=== PATIENT | male | born 1960 | race African-American/Black ===

== ENCOUNTER 2018-11-19 09:23 | Emergency (ER) | payer OTHER ==
[2018-11-19 09:27] VITALS: RESP 18; TEMP 97.7
--- NOTE | 2018-11-19 09:36 | ED ---
Lower Extremity Injury HPI - General Chief Complaint: Extremity Injury, Lower Stated Complaint: Foot Injury Time Seen by Provider: 11/19/18 09:29 Source: patient, RN notes reviewed, old records reviewed Mode of arrival: wheelchair Limitations: no limitations - History of Present Illness Initial Comments: Patient is a 38-year-old male presents weren't found she will plan of left foot pain. Patient reports 2 days ago he was walking in the middle the night and stubbed his left great toe on the edge of a wood burning stove. He reports a laceration. He states that the toe started to swell. He reports that he has been able to ambulate with some pain. Patient reports no history of neuropathy. He states he has normal sensation to the distal toes. Patient reports pain with range of motion of the first toe. - Related Data Home Medications Medication Instructions Recorded Confirmed Hydrochlorothiazide 12.5 mg PO DAILY 11/19/18 11/19/18 Multivit-Min/FA/Lycopen/Lutein 1 tab PO DAILY 11/19/18 11/19/18 [Centrum Silver Men Tablet] Olmesartan Medoxomil [Benicar] 40 mg PO DAILY 11/19/18 11/19/18 Rosuvastatin Calcium [Crestor] 10 mg PO DAILY 11/19/18 11/19/18 Previous Rx's Medication Instructions Recorded Ibuprofen 600 mg PO TID #20 tablet 11/19/18 Allergies Allergy/AdvReac Type Severity Reaction Status Date / Time No Known Allergies Allergy Verified 11/19/18 09:56 Review of Systems ROS Statement: Those systems with pertinent positive or pertinent negative responses have been documented in the HPI. ROS Other: All systems not noted in ROS Statement are negative. Past Medical History Past Medical History: GI Bleed, Hyperlipidemia, Hypertension, Osteoarthritis (OA ) Additional Past Medical History / Comment(s): Rectal bleed 09/2014, pancreatitis , HERNIATED DISC IN NECK-will be having surgery soon, cervical pain. History of Any Multi-Drug Resistant Organisms: None Reported Past Surgical History: No Surgical Hx Reported Additional Past Surgical History / Comment(s): MAUREEN FUNDLAPLASTY, EGDs and colonoscopies with benign polypectomies, TOOTH EXTRACTIONS, Past Anesthesia/Blood Transfusion Reactions: No Reported Reaction Additional Past Anesthesia/Blood Transfusion Reaction / Comment(s): Pt has received blood without reaction. Past Psychological History: No Psychological Hx Reported Smoking Status: Current some day smoker Past Alcohol Use History: Daily Past Drug Use History: None Reported - Past Family History Mother Family Medical History: No Reported History Additional Family Medical History / Comment(s): Mother is healthy and is 78 yrs old. Father Family Medical History: Diabetes Mellitus, Hypertension Additional Family Medical History / Comment(s): Father at age 84 yrs. General Exam - General Exam Comments Initial Comments: Well-appearing 58-year-old male. Alert and oriented. No acute distress. Limitations: no limitations General appearance: alert, in no apparent distress Head exam: Present: atraumatic, normocephalic, normal inspection Eye exam: Present: normal appearance, PERRL, EOMI. Absent: scleral icterus, conjunctival injection, periorbital swelling ENT exam: Present: normal exam, mucous membranes moist Neck exam: Present: normal inspection. Absent: tenderness, meningismus, lymphadenopathy Respiratory exam: Present: normal lung sounds bilaterally. Absent: respiratory distress, wheezes, rales, rhonchi, stridor Left Knee exam: Present: normal inspection, full ROM Lower Leg exam: Present: normal inspection, full ROM Ankle exam: Present: normal inspection, full ROM Foot/Toe exam: Present: tenderness, swelling (over distal first metatarsal). Absent: normal inspection Neurovascular tendon exam: Present: no vascular compromise Gait: observed and normal Back exam: Present: normal inspection Neurological exam: Present: alert, oriented X3, CN II-XII intact Psychiatric exam: Present: normal affect, normal mood Course Vital Signs 11/19/18 09:24 Temperature 97.7 F Pulse Rate 94 Respiratory 18 Rate Blood Pressure 132/91 O2 Sat by Pulse 99 Oximetry Medical Decision Making - Medical Decision Making Patient is a 58-year-old male, who presents emergency department today with left great toe pain after he stubbed his toe 2 days ago. At this time he does have some swelling over the first metatarsal. Is normal sensation distally. Normal capillary refill and pulse. X-ray was completely negative for any acute process. Likely severe strain. Patient this time will be placed in a walking boot. Discussed following up with his primary care physician Jerzy Brumfield and icing the area. All questions answered and return parameters were discussed. - Radiology Data Radiology results: report reviewed No acute fracture dislocation of the left foot Disposition Clinical Impression: Sprain of left foot, Toe contusion Disposition: HOME SELF-CARE Condition: Good Instructions: Foot Sprain (ED) Additional Instructions: Patient is to rest, ice, and elevate the foot. Patient should take antibiotic medicine for pain. Follow-up with orthopedic and primary care physician. He can ambulate with walking boot. Prescriptions: Ibuprofen 600 mg PO TID #20 tablet Is patient prescribed a controlled substance at d/c from ED?: No Referrals: Jeffry Yang DO [Primary Care Provider] - 1-2 days Time of Disposition: 10:55
--- NOTE | 2018-11-19 09:58 | XR ---
EXAMINATION TYPE: XR foot complete LT DATE OF EXAM: 11/19/2018 CLINICAL HISTORY: Stubbing injury 2 days ago with pain. TECHNIQUE: Frontal, lateral, and oblique images of the left foot are obtained. COMPARISON: None FINDINGS: There is no acute fracture/dislocation evident in the left foot. There are acrolysis or os sific shortening of fourth distal phalanx. The Thompson's toe is present. There is gnoo-[id number] dif fuse subcutaneous edema with slightly more prominent soft tissue swelling near metatarsal head dorsal surface on lateral view. There is suspected bipartite medial sesamoid with well-corticated defect. M ild to moderate narrowing first metatarsophalangeal joint is present. IMPRESSION: There is no acute fracture or dislocation in the left foot.
[2018-11-19 11:08] VITALS: BP 127/90; PULSE 81
== END 2018-11-19 11:09 | disposition home or self-care (01) ==
LOC: EC 09:23
DX: S93.602A Unspecified sprain of left foot, initial encounter (principal); S90.112A Contusion of left great toe without damage to nail, initial encounter; E78.5 Hyperlipidemia, unspecified; I10 Essential (primary) hypertension; F17.200 Nicotine dependence, unspecified, uncomplicated; Z79.899 Other long term (current) drug therapy; W22.8XXA Striking against or struck by other objects, initial encounter; Y93.01 Activity, walking, marching and hiking
CPT/HCPCS: 99284

== ENCOUNTER 2018-12-24 18:35 | Emergency (ER) | payer OTHER ==
[2018-12-24 18:40] VITALS: BP 105/64; PULSE 87; RESP 16; TEMP 98
--- NOTE | 2018-12-24 19:19 | ED ---
Neck Injury/Pain HPI - General Chief Complaint: Neck Pain/Injury Stated Complaint: fall/neck pain Time Seen by Provider: 12/24/18 18:41 Source: patient, RN notes reviewed Mode of arrival: ambulatory Limitations: no limitations - History of Present Illness Initial Comments: 58-year-old male presents emergency Department chief complaint of left-sided neck pain. Patient states that he slipped on some ice 5 days ago. Patient denies any loss conscious. Patient states she has some soreness on the left side of his neck but states that has not improved. Patient states he had cervical fusion at [facility] 2 years ago. Patient denies any upper extremity weakness, paresthesias, radiating pain. Denies any chest pain or shortness of breath. Denies any upper back pain or lower back pain. - Related Data Home Medications Medication Instructions Recorded Confirmed Hydrochlorothiazide 12.5 mg PO DAILY 11/19/18 11/19/18 Multivit-Min/FA/Lycopen/Lutein 1 tab PO DAILY 11/19/18 11/19/18 [Centrum Silver Men Tablet] Olmesartan Medoxomil [Benicar] 40 mg PO DAILY 11/19/18 11/19/18 Rosuvastatin Calcium [Crestor] 10 mg PO DAILY 11/19/18 11/19/18 Previous Rx's Medication Instructions Recorded Ibuprofen 600 mg PO TID #20 tablet 11/19/18 Cyclobenzaprine [Flexeril] 10 mg PO TID PRN #15 tab 12/24/18 Ibuprofen [Motrin] 600 mg PO Q8HR PRN #30 tab 12/24/18 Allergies Allergy/AdvReac Type Severity Reaction Status Date / Time No Known Allergies Allergy Verified 12/24/18 18:40 Review of Systems ROS Statement: Those systems with pertinent positive or pertinent negative responses have been documented in the HPI. ROS Other: All systems not noted in ROS Statement are negative. Past Medical History Past Medical History: GI Bleed, Hyperlipidemia, Hypertension, Osteoarthritis (OA ) Additional Past Medical History / Comment(s): Rectal bleed 09/2014, pancreatitis , HERNIATED DISC IN NECK-will be having surgery soon, cervical pain. History of Any Multi-Drug Resistant Organisms: None Reported Past Surgical History: No Surgical Hx Reported Additional Past Surgical History / Comment(s): MAUREEN FUNDLAPLASTY, EGDs and colonoscopies with benign polypectomies, TOOTH EXTRACTIONS, Past Anesthesia/Blood Transfusion Reactions: No Reported Reaction Additional Past Anesthesia/Blood Transfusion Reaction / Comment(s): Pt has received blood without reaction. Past Psychological History: No Psychological Hx Reported Smoking Status: Current some day smoker Past Alcohol Use History: Daily Past Drug Use History: None Reported - Past Family History Mother Family Medical History: No Reported History Additional Family Medical History / Comment(s): Mother is healthy and is 78 yrs old. Father Family Medical History: Diabetes Mellitus, Hypertension Additional Family Medical History / Comment(s): Father at age 84 yrs. General Exam Limitations: no limitations General appearance: alert, in no apparent distress Head exam: Present: atraumatic, normocephalic, normal inspection Eye exam: Present: normal appearance, PERRL, EOMI. Absent: scleral icterus, conjunctival injection, periorbital swelling ENT exam: Present: normal exam, normal oropharynx, mucous membranes moist, TM's normal bilaterally, normal external ear exam Neck exam: Present: normal inspection, tenderness (Mild tenderness on the left paraspinals), full ROM. Absent: meningismus, lymphadenopathy Respiratory exam: Present: normal lung sounds bilaterally. Absent: respiratory distress, wheezes, rales, rhonchi, stridor Cardiovascular Exam: Present: regular rate, normal rhythm, normal heart sounds. Absent: systolic murmur, diastolic murmur, rubs, gallop, clicks Extremities exam: Present: normal inspection, full ROM, normal capillary refill , other (Upper extremity strength equal bilaterally, neurovascular intact). Absent: tenderness, pedal edema, joint swelling, calf tenderness Neurological exam: Present: alert, oriented X3, CN II-XII intact, reflexes normal, other ( finger to nose intact bilaterally without overshooting). Absent : motor sensory deficit Skin exam: Present: warm, dry, intact, normal color. Absent: rash Course Vital Signs 12/24/18 18:37 Temperature 98 F Pulse Rate 87 Respiratory 16 Rate Blood Pressure 105/64 O2 Sat by Pulse 97 Oximetry Medical Decision Making - Medical Decision Making 58-year-old male presented for fall neck pain. Patient has left-sided paraspinal tenderness. Patient is neurologically intact. X-ray shows stable fusion. I did discuss with the radiologist if there was a benefit according CT at this time. There is no acute fracture. Patient will follow-up with surgeon. Return parameters were discussed. Patient we discharged with anti- inflammatories and muscle relaxers. Disposition Clinical Impression: Strain of neck muscle Disposition: HOME SELF-CARE Condition: Stable Instructions (If sedation given, give patient instructions): Cervical Strain ( ED) Additional Instructions: Please return to the Emergency Department if symptoms worsen or any other concerns. Please follow-up with your surgeon as directed. Prescriptions: Cyclobenzaprine [Flexeril] 10 mg PO TID PRN #15 tab PRN Reason: Muscle Spasm Ibuprofen [Motrin] 600 mg PO Q8HR PRN #30 tab PRN Reason: Pain Is patient prescribed a controlled substance at d/c from ED?: No Referrals: Jeffry Yang DO [Primary Care Provider] - 1-2 days Time of Disposition: 19:32
--- NOTE | 2018-12-24 19:22 | XR ---
EXAMINATION TYPE: XR cervical spine comp DATE OF EXAM: 12/24/2018 COMPARISON: NONE HISTORY: Neck pain after fall TECHNIQUE: 5 views FINDINGS: There is a plate with screws fusing anteriorly the cervical spine from C4 to C7. There is a nterior spurring at C3-4. Posterior elements are intact. Atlantoaxial facet joint is intact. IMPRESSION: Multilevel fusion surgery. No acute bony abnormality.
[2018-12-24] MEDS ORDERED: KETOROLAC 60 MG/2 ML VIAL IM STA (19:30)
[2018-12-24] MEDS ORDERED: DIAZEPAM 5 MG/ML 2 ML INJ IM ONE (19:30)
== END 2018-12-24 19:44 | disposition home or self-care (01) ==
LOC: EC 18:35
DX: S16.1XXA Strain of muscle, fascia and tendon at neck level, initial encounter (principal); I10 Essential (primary) hypertension; E78.5 Hyperlipidemia, unspecified; F17.200 Nicotine dependence, unspecified, uncomplicated; Z79.899 Other long term (current) drug therapy; Z98.1 Arthrodesis status; W00.0XXA Fall on same level due to ice and snow, initial encounter
CPT/HCPCS: 72050; 99283; 96372 ×2; J3360; J1885

== ENCOUNTER → 2019-01-06 | Outpatient (CLI) | payer OTHER ==
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
== END | disposition home or self-care (01) ==
LOC: SLEEP 10:33
PROVIDERS: ATTEND Internal Medicine Critical Care Medicine
DX: G47.63 Sleep related bruxism (principal); R06.83 Snoring; R53.83 Other fatigue; R40.0 Somnolence; E78.5 Hyperlipidemia, unspecified; I10 Essential (primary) hypertension; F10.20 Alcohol dependence, uncomplicated; M50.30 Other cervical disc degeneration, unspecified cervical region; M19.90 Unspecified osteoarthritis, unspecified site; F17.200 Nicotine dependence, unspecified, uncomplicated; Z87.19 Personal history of other diseases of the digestive system; Z79.1 Long term (current) use of non-steroidal anti-inflammatories (NSAID); Z98.890 Other specified postprocedural states
CPT/HCPCS: 99211

== ENCOUNTER → 2019-04-07 | Outpatient (CLI) | payer OTHER ==
--- NOTE | 2019-04-07 15:04 | SFUN ---
SLEEP CENTER FOLLOW UP NOTE Teo is 58, diagnosed having severe obstructive sleep apnea with AHI of 33, and currently he is on is on CPAP pressure of 11. He is trying to become more compliant with CPAP. He is using the SoClean to clean his CPAP unit. He has already seen the benefit of the treatment, as reported sleep quality is improved and the patient is much more alert and awake and responsive during the day. Based on the compliance data, the patient has been averaging 4.8 hours of CPAP use per night. His CPAP use in general it is 100%. He is averaging more than 4 hours only 18 out of the past 30 days. His leak is 63/L per minute, and the patient's AHI is down to 2.3 while on treatment. He is using a Simplus full-face mask. Note that the patient has grinding of the teeth, and he is interested in alternative masks that can go around his nose and at same time he can wear his bite guard. I note that his blood pressure is little bit elevated on today's evaluation. He is known to have hypertension. REVIEW OF SYSTEMS: A 14-point review of system was done. Positive for grinding and he is seeking an alternative masks that covers his nose and he makes him use his mouth guard. In general, he is doing better. His sleep quality is improved. No hypersomnia or sleepiness. No angina, no palpitations. No chest pain. No numbness or tingling. No altered mentation. No hypersomnia. His current vitals, BP is 188/92, pulse 54, respirations 16, weight is 203. temperature 98.2, saturation is 98% on room air. [place] score is 6. GENERAL APPEARANCE: Calm, comfortable. HEAD: Atraumatic, normocephalic. NECK: Supple. No JVD. No goiter or neck mass. Mallampati class IV. LUNGS: Clear to auscultation. HEART: Sounds regular rate and rhythm. Normal S1, S2. No S3. No murmurs. ABDOMEN: Soft, nontender. No organomegaly. EXTREMITIES: No edema. No cyanosis or clubbing. NEUROLOGIC: Alert and oriented x3. No focal neurological deficits. PSYCHIATRIC: Negative for anxiety or depression. IMPRESSION: 1. Severe obstructive sleep apnea, apnea-hypopnea index of 33. Already undergoing successful CPAP therapy. 2. Hypersomnia, improved. 3. Loud snoring, recovered. 4. Grinding of the teeth, wearing a bite guard. 5. Eating disorder. 6. Hypertension. 7. Alcoholism. PLAN: 1. Will switch this patient to a Dream wear under the nose mask, medium size. 2. Will allow the patient to use his mouth guard. 3. I asked the patient to use more of a CPAP,. trying to improve his compliance further. 4. Treatment is successful. 5. Noted the blood pressure to be elevated and ask the patient to contact his primary care physician for blood pressure management and control. In general, his treatment has been successful. MMODL / IJN: [id number] /
== END | disposition home or self-care (01) ==
LOC: SLEEP 13:12
PROVIDERS: ATTEND Internal Medicine Critical Care Medicine
DX: G47.33 Obstructive sleep apnea (adult) (pediatric) (principal); F45.8 Other somatoform disorders; F50.9 Eating disorder, unspecified; I10 Essential (primary) hypertension; F10.20 Alcohol dependence, uncomplicated; Z99.89 Dependence on other enabling machines and devices

== ENCOUNTER 2019-09-27 13:08 | Inpatient (IN) | payer MEDICARE, OTHER ==
[2019-09-27] MEDS ORDERED: HYDROmorphone 1 MG/ML 1 ML SYRINGE IVP STA (13:34)
[2019-09-27] MEDS ORDERED: ONDANSETRON 4 MG/2 ML VIAL IVP STA (13:34)
[2019-09-27] MEDS ORDERED: SODIUM CHLORIDE 0.9% 1,000 ML IV ONE (13:35)
--- NOTE | 2019-09-27 13:40 | ED ---
General Adult HPI - General Chief complaint: Abdominal Pain Stated complaint: Abd pain Time Seen by Provider: 09/27/19 13:29 Source: patient Mode of arrival: ambulatory Limitations: no limitations - History of Present Illness Initial comments: Patient presents to the ED complaining of having epigastric abdominal pain radiating to his back for the past 4 days. Patient states that his pain has been increasing. Patient also states that he has felt nauseated, and he states that he vomited 2 days ago. Patient has a history of alcohol abuse, but he sta lashae that he has not had a drink in the past 2 days. Patient denies trauma or injury, fever or chills, headache, chest pain, dyspnea, dizziness, lower abdominal pain, bloody or melanotic stool, hematemesis, diarrhea or constipation, dysuria or urinary symptoms, or any other symptoms or complaints. - Related Data Home Medications Medication Instructions Recorded Confirmed Hydrochlorothiazide 12.5 mg PO DAILY 11/19/18 11/19/18 Multivit-Min/FA/Lycopen/Lutein 1 tab PO DAILY 11/19/18 11/19/18 [Centrum Silver Men Tablet] Olmesartan Medoxomil [Benicar] 40 mg PO DAILY 11/19/18 11/19/18 Rosuvastatin Calcium [Crestor] 10 mg PO DAILY 11/19/18 11/19/18 Previous Rx's Medication Instructions Recorded Ibuprofen 600 mg PO TID #20 tablet 11/19/18 Cyclobenzaprine [Flexeril] 10 mg PO TID PRN #15 tab 12/24/18 Ibuprofen [Motrin] 600 mg PO Q8HR PRN #30 tab 12/24/18 Allergies Allergy/AdvReac Type Severity Reaction Status Date / Time No Known Allergies Allergy Verified 09/27/19 13:24 Review of Systems ROS Statement: Those systems with pertinent positive or pertinent negative responses have been documented in the HPI. ROS Other: All systems not noted in ROS Statement are negative. Past Medical History Past Medical History: GERD/Reflux, GI Bleed, Hyperlipidemia, Hypertension, Osteoarthritis (OA) Additional Past Medical History / Comment(s): alcholism , rectal bleed 09/2014, pancreatitis, Cervical disk disease on the neck, gringing History of Any Multi-Drug Resistant Organisms: None Reported Additional Past Surgical History / Comment(s): MAUREEN FUNDLAPLASTY, EGDs and colonoscopies with benign polypectomies, TOOTH EXTRACTIONS, Past Anesthesia/Blood Transfusion Reactions: No Reported Reaction Additional Past Anesthesia/Blood Transfusion Reaction / Comment(s): Pt has received blood without reaction. Past Psychological History: No Psychological Hx Reported Smoking Status: Current some day smoker Past Alcohol Use History: Daily Past Drug Use History: None Reported - Past Family History Mother Family Medical History: No Reported History Additional Family Medical History / Comment(s): Mother is healthy and is 78 yrs old. Father Family Medical History: Diabetes Mellitus, Hypertension Additional Family Medical History / Comment(s): Father at age 84 yrs. General Exam Limitations: no limitations General appearance: alert, in no apparent distress Head exam: Present: atraumatic, normocephalic Eye exam: Present: normal appearance, EOMI. Absent: scleral icterus ENT exam: Present: mucous membranes moist Respiratory exam: Present: normal lung sounds bilaterally. Absent: respiratory distress, wheezes, rales, rhonchi Cardiovascular Exam: Present: regular rate, normal rhythm, normal heart sounds, other (Normal radial pulses bilaterally) GI/Abdominal exam: Present: soft, normal bowel sounds, other (Moderate epigastric tenderness). Absent: distended, guarding, rebound Back exam: Absent: tenderness, CVA tenderness (R), CVA tenderness (L) Neurological exam: Present: alert, oriented X3 Psychiatric exam: Present: normal affect, normal mood Skin exam: Present: warm, dry, intact Course Vital Signs 09/27/19 13:21 Temperature 97.4 F L Pulse Rate 87 Respiratory 16 Rate Blood Pressure 126/84 O2 Sat by Pulse 99 Oximetry - Reevaluation(s) Reevaluation #1: 09/27/19 14:25 Case, H&P, test results and ED management thus far were discussed with Dr. Benavidez. He accepts hospital floor admission. He has no further recommendations at this time. Reevaluation #2: 09/27/19 14:37 Patient states that his pain is improved with ED treatment. Patient denies development of any new symptoms while in the ED. Patient is aware of his test results, and he agrees with hospital admission at this time. Medical Decision Making - Medical Decision Making Patient's pancreatic enzymes are elevated. Patient has a normal white blood cell count and he is afebrile. I suspect that the patient's symptoms are likely secondary to alcohol-induced acute pancreatitis. Will admit the patient to the hospital under care of Dr. Benavidez. - Lab Data Result diagrams: 09/27/19 13:45 09/27/19 13:45 Lab Results 09/27/19 09/27/19 Range/Units 13:45 13:45 WBC 5.8 (3.8-10.6) k/uL RBC 4.03 L (4.30-5.90) m/uL Hgb 13.8 (13.0-17.5) gm/dL Hct 42.2 (39.0-53.0) % MCV 104.6 H (80.0-100.0) fL MCH 34.3 (25.0-35.0) pg MCHC 32.8 (31.0-37.0) g/dL RDW 14.0 (11.5-15.5) % Plt Count 214 (150-450) k/uL Neutrophils % 73 % Lymphocytes % 17 % Monocytes % 4 % Eosinophils % 3 % Basophils % 0 % Neutrophils # 4.3 (1.3-7.7) k/uL Lymphocytes # 1.0 (1.0-4.8) k/uL Monocytes # 0.3 (0-1.0) k/uL Eosinophils # 0.2 (0-0.7) k/uL Basophils # 0.0 (0-0.2) k/uL Macrocytosis Moderate Sodium 139 (137-145) mmol/L Potassium 3.9 (3.5-5.1) mmol/L Chloride 105 (98-107) mmol/L Carbon Dioxide 26 (22-30) mmol/L Anion Gap 8 mmol/L BUN 13 (9-20) mg/dL Creatinine 1.14 (0.66-1.25) mg/dL Est GFR (CKD-EPI)AfAm 81 (>60 ml/min/1.73 sqM) Est GFR (CKD-EPI)NonAf 70 (>60 ml/min/1.73 sqM) Glucose 115 H (74-99) mg/dL Calcium 10.1 (8.4-10.2) mg/dL Total Bilirubin 2.2 H (0.2-1.3) mg/dL AST 175 H (17-59) U/L ALT 75 H (21-72) U/L Alkaline Phosphatase 201 H (38-126) U/L Total Protein 7.9 (6.3-8.2) g/dL Albumin 4.4 (3.5-5.0) g/dL Amylase 140 H (30-110) U/L Lipase 874 H (23-300) U/L Serum Alcohol <10 mg/dL Disposition Clinical Impression: Abdominal pain, Pancreatitis Disposition: ADMITTED IP TO THIS [facility] Condition: Stable Is patient prescribed a controlled substance at d/c from ED?: No Referrals: Jeffry Yang DO [Primary Care Provider] - 1-2 days Time of Disposition: 14:25 Decision Date: 09/27/19 Decision Time: 14:21
[2019-09-27 13:52] LABS: Basophils % (A) 0 %; Eosinophils # (A) 0.2 k/uL (0-0.7); Eosinophils % (A) 3 %; HCT 42.2 % (39.0-53.0); HGB 13.8 gm/dL (13.0-17.5); Lymphocytes % (A) 17 %; MCH 34.3 pg (25.0-35.0); MCHC 32.8 g/dL (31.0-37.0); MCV 104.6 fL (80.0-100.0); Macrocytosis Moderate; Mean Platelet Volume 9.4; Monocytes # (A) 0.3 k/uL (0-1.0); Monocytes % (A) 4 %; Neutrophils # (A) 4.3 k/uL (1.3-7.7); Neutrophils % (A) 73 %; Platelet Count 214 k/uL (150-450); RBC 4.03 m/uL (4.30-5.90); WBC 5.8 k/uL (3.8-10.6)
[2019-09-27 14:06] LABS: ALT 75 U/L (21-72); AST 175 U/L (17-59); African American GFR (CKD) 81 (>60 ml/min/1.73 sqM); Albumin 4.4 g/dL (3.5-5.0); Alcohol <10 mg/dL; Alkaline Phosphatase 201 U/L (38-126); Amylase 140 U/L (30-110); Anion Gap 8 mmol/L; Blood Urea Nitrogen 13 mg/dL (9-20); Calcium 10.1 mg/dL (8.4-10.2); Carbon Dioxide 26 mmol/L (22-30); Chloride 105 mmol/L (98-107); Glucose 115 mg/dL (74-99); Potassium 3.9 mmol/L (3.5-5.1); Sodium 139 mmol/L (137-145); Total Bilirubin 2.2 mg/dL (0.2-1.3); Total Protein 7.9 g/dL (6.3-8.2)
[2019-09-27] MEDS ORDERED: NALOXONE 0.4 MG/ML 1 ML VIAL IV PRN (14:26)
[2019-09-27] MEDS ORDERED: MORPHINE SULFATE 4 MG/ML SYRINGE IV PRN (14:26)
[2019-09-27] MEDS: SODIUM CHLORIDE 0.9% 1,000 ML IV SCH (14:50)
[2019-09-27 16:17] VITALS: BMI 26.4
[2019-09-27] MEDS ORDERED: THIAMINE 100 MG/ML 2 ML VIAL IM STA (17:25)
[2019-09-27] MEDS ORDERED: LORazepam 2 MG/ML INJ IV PRN ×3 (17:25)
--- NOTE | 2019-09-27 17:58 | HP ---
HISTORY AND PHYSICAL DATE OF SERVICE: 09/27/2019 CHIEF COMPLAINT: Abdominal pain. HISTORY OF PRESENT ILLNESS: This 59-year-old gentleman with a past medical history of multiple medical problems including history of GERD, hypertension, hyperlipidemia, history of DJD, alcoholism, being followed by Dr. Jeffry Yang in the outpatient setting, is complaining of abdominal pain. The pain was present for the last 4 days, increased in intensity felt in the front and radiating to the back. The patient had previous history of pancreatitis related to alcohol also. There is no history of fever, rigors or chills. No history of headache, loss of consciousness or seizures. PAST MEDICAL HISTORY: History of GERD, history of gastrointestinal bleed, hypertension, hyperlipidemia, history of DJD, history of alcoholism, history of rectal bleed, history of pancreatitis, cervical degenerative joint disease. MEDICATIONS: Hydrochlorothiazide 10.5 mg daily. ALLERGIES: None. FAMILY HISTORY: History of diabetes and hypertension. SOCIAL HISTORY: History of smoking. History of alcohol. REVIEW OF SYSTEMS: ENT: No diminished vision. No diminished hearing. Cardiovascular: No angina or palpitations. Respiration no cough or hemoptysis. GI: As mentioned above. no dysuria. Nervous system: No numbness or weakness. Allergy/Immunology: No asthma or hayfever. MUSCULOSKELETAL as mentioned earlier. HEMATOLOGY/ONCOLOGY: No history of anemia. ENDOCRINE: No history of diabetes or hypothyroidism. CONSTITUTIONAL: As mentioned earlier. Dermatology: Negative. Rheumatology: Negative. Psychiatry: As mentioned earlier. PHYSICAL EXAMINATION: Alert and oriented times three. Pulse is 55. Blood pressure 130/70, respiration 18, temperature 97.6, pulse ox 98% on room air. HEENT: Conjunctivae normal. NECK: No JVD. CARDIOVASCULAR: S1, S2 muffled. RESPIRATORY: Breath sounds diminished in the bases. Scattered rhonchi and crackles. ABDOMEN: Soft. Mild diffuse tenderness in the epigastrium. No guarding. No rigidity. No mass palpable. LEGS: No edema. No swelling. NERVOUS SYSTEM: Higher functions as mentioned earlier. Moves all 4 limbs. No focal motor or sensory deficits. LYMPHATICS: No lymph nodes palpable in the neck, axillae or groin. SKIN: No ulcer. No rashes. No bleeding. JOINTS: No active deforming arthropathy. LABS: At this time shows WBC 5.2, hemoglobin 13.8. Sodium 130, potassium 3.9. Glucose 115, total bilirubin is 2.2, AST is 175, ALT is 175, and amylase is 140 and lipase is 874. ASSESSMENT: 1. Acute pancreatitis with acute on chronic pancreatitis with abdominal pain. 2. Increased bilirubin with AST/ALT possibly hepatitis, alcohol related. 3. History of gastroesophageal reflux disease. 4. History of gastrointestinal bleed. 5. Hypertension. 6. Hyperlipidemia. 7. History of degenerative joint disease. 8. History of pancreatitis. 9. Cervical degenerative joint disease. 10.History of Cal fundoplasty. 11.Continued ongoing nicotine dependence. 12.FULL CODE. RECOMMENDATIONS AND DISCUSSION: In this 59-year-old gentleman who presented with multiple complex medical issues, we will monitor the patient closely, continue the current medications, symptomatic treatment of the pain. I would also recommend repeat labs in the morning. Symptomatic treatment. If the patient's pain improves, the patient may be fed. Otherwise see orders for details. Prognosis guarded. Further recommendations to follow. A copy of dictation being forwarded to Dr. Jeffry Yang who is the primary physician. MMYASMANIL / IJN: [id number] /
[2019-09-27] MEDS: HYDROmorphone 0.5 MG/0.5 ML SYRINGE IVP PRN (20:00)
[2019-09-27] MEDS: THIAMINE 100 MG TAB PO SCH (20:00)
[2019-09-27] MEDS: HEPARIN SODIUM,PORCINE 5,000 UNIT/ML 1 ML VIAL SQ SCH (20:01)
[2019-09-27] MEDS: PANTOPRAZOLE 40 MG/10 ML VIAL IVP SCH ×2 (20:01→20:49)
[2019-09-27] MEDS: NICOTINE 14MG/24HR PATCH TRANSDERM SCH (20:10)
[2019-09-28] MEDS: HYDROmorphone 0.5 MG/0.5 ML SYRINGE IVP PRN ×5 (00:16→20:27)
[2019-09-28] MEDS: SODIUM CHLORIDE 0.9% 1,000 ML IV SCH ×3 (00:18→16:34)
[2019-09-28] MEDS: ONDANSETRON 4 MG/2 ML VIAL IVP PRN ×2 (00:19→20:33)
[2019-09-28] MEDS: NICOTINE 14MG/24HR PATCH TRANSDERM SCH (07:30)
[2019-09-28] MEDS: THIAMINE 100 MG TAB PO SCH ×2 (07:30→16:30)
[2019-09-28] MEDS: HEPARIN SODIUM,PORCINE 5,000 UNIT/ML 1 ML VIAL SQ SCH ×2 (07:34→20:28)
[2019-09-28] MEDS: PANTOPRAZOLE 40 MG/10 ML VIAL IVP SCH ×2 (07:35→20:27)
[2019-09-28] MEDS: HYDROmorphone 1 MG/ML 1 ML SYRINGE IVP PRN (08:04)
[2019-09-28 11:17] LABS: Basophils % (A) 0 %; Eosinophils # (A) 0.2 k/uL (0-0.7); Eosinophils % (A) 4 %; HCT 39.3 % (39.0-53.0); HGB 12.3 gm/dL (13.0-17.5); Hypochromasia Slight; Lymphocytes # (A) 1.2 k/uL (1.0-4.8); Lymphocytes % (A) 25 %; MCH 33.6 pg (25.0-35.0); MCHC 31.2 g/dL (31.0-37.0); MCV 107.5 fL (80.0-100.0); Macrocytosis Moderate; Monocytes # (A) 0.3 k/uL (0-1.0); Monocytes % (A) 6 %; Neutrophils # (A) 3.1 k/uL (1.3-7.7); Neutrophils % (A) 62 %; Platelet Count 192 k/uL (150-450); RBC 3.65 m/uL (4.30-5.90); RDW 14.2 % (11.5-15.5)
[2019-09-28] MEDS: MULTIVITAMINS, THERA 1 EACH TAB PO SCH (12:15)
[2019-09-28] MEDS: FOLIC ACID 1 MG TAB PO SCH (12:15)
[2019-09-28 12:32] LABS: ALT 75 U/L (21-72); AST 86 U/L (17-59); African American GFR (CKD) >90 (>60 ml/min/1.73 sqM); Albumin 3.4 g/dL (3.5-5.0); Alkaline Phosphatase 157 U/L (38-126); Amylase 86 U/L (30-110); Anion Gap 8 mmol/L; Blood Urea Nitrogen 11 mg/dL (9-20); Calcium 8.7 mg/dL (8.4-10.2); Carbon Dioxide 21 mmol/L (22-30); Chloride 109 mmol/L (98-107); Glucose 62 mg/dL (74-99); Potassium 4.3 mmol/L (3.5-5.1); Sodium 138 mmol/L (137-145); Total Protein 6.3 g/dL (6.3-8.2)
--- NOTE | 2019-09-28 13:15 | P.PN ---
Subjective Progress Note Date: 09/28/19 This is a 59-year-old gentleman admitted with abdominal pain ,acute on chronic pancreatitis, alcohol abuse, nicotine dependence and multiple other medical issues. Patient reports he drinks about 1-1/2 pints per day.NPO, continues to have significant mid epigastric abdominal pain. Continues on IV fluid hy dration. Afebrile, normal WBC. She bili normalized, LFTs improving, lipase down to 496. Objective - Vital Signs Vital signs: Vital Signs Temp 98.1 F 09/28/19 12:02 Pulse 48 L 09/28/19 12:02 Resp 17 09/28/19 12:02 BP 171/88 09/28/19 12:02 Pulse Ox 100 09/28/19 12:02 Intake & Output 09/27/19 09/28/19 09/28/19 18:59 06:59 18:59 Intake Total 2029 Balance 2029 Weight 86.183 kg Intake: Intake, IV Titration 1440 Amount Sodium Chloride 0.9% 1, 1440 000 ml @ 120 mls/hr IV . Q8H20M [facility] Rx#:[id number] Oral 590 Other: Voiding Method Toilet Toilet # Voids 1 - Exam PHYSICAL EXAM: VITAL SIGNS: As above GENERAL: Sitting up in bed, no acute distress HEENT: Conjunctivae normal. eyes normal. Oral mucosa dry. NECK: No JVD. No thyroid enlargement. CARDIOVASCULAR: S1, S2 regular. No murmur RESPIRATION: Breath sounds diminished in the bases. No rhonchi or crackles. No bronchial breathing. ABDOMEN: Soft, mildly distended, diffuse mid epigastric tenderness. No guarding. no masses palpable. Bowel sounds heard. LEGS: No edema. no swelling. PSYCHIATRY: Alert and oriented X3, mood and affect normal. NERVOUS SYSTEM: Cranial N 2-12 grossly normal. Moves all 4 limbs. No focal deficits. Strength and sensation grossly intact.. Skin: no rash, normal skin turgor. - Labs CBC & Chem 7: 09/28/19 07:35 09/28/19 07:35 Labs: Abnormal Lab Results - Last 24 Hours (Table) 09/27/19 09/27/19 09/28/19 Range/Units 13:45 13:45 07:35 RBC 4.03 L (4.30-5.90) m/uL Hgb (13.0-17.5) gm/dL MCV 104.6 H (80.0-100.0) fL Chloride 109 H (98-107) mmol/L Carbon Dioxide 21 L (22-30) mmol/L Glucose 115 H 62 L (74-99) mg/dL Total Bilirubin 2.2 H (0.2-1.3) mg/dL AST 175 H 86 H (17-59) U/L ALT 75 H 75 H (21-72) U/L Alkaline Phosphatase 201 H 157 H (38-126) U/L Albumin 3.4 L (3.5-5.0) g/dL Amylase 140 H (30-110) U/L Lipase 874 H 496 H (23-300) U/L 09/28/19 Range/Units 07:35 RBC 3.65 L (4.30-5.90) m/uL Hgb 12.3 L (13.0-17.5) gm/dL MCV 107.5 H (80.0-100.0) fL Chloride (98-107) mmol/L Carbon Dioxide (22-30) mmol/L Glucose (74-99) mg/dL Total Bilirubin (0.2-1.3) mg/dL AST (17-59) U/L ALT (21-72) U/L Alkaline Phosphatase (38-126) U/L Albumin (3.5-5.0) g/dL Amylase (30-110) U/L Lipase (23-300) U/L Assessment and Plan Assessment: Acute on chronic pancreatitis -Increased bilirubin with LFTs. Possibly alcoholic hepatitis. -Alcohol abuse -Nicotine dependence -History of GI bleed -Hypertension -Hyperlipidemia -Cervical degenerative joint disease -History of Cal Fundoplasty. Plan: Continue on current medication regime ,monitoring and symptomatic treatment. Continues to complain of significant abdominal pain, surgery consulted. Keep NPO. Maintain gentle IV fluid hydration. Close monitoring of LFTs, lipase with repeat labs ordered for a.m. Discussed smoking and alcohol cessation, including community resources, AA. Plan of care discussed with both patient and son at bedside. The impression and plan of care has been dictated as directed. : I performed a history and examination of this patient, discussed the same with the dictator. I agree with the dictator's note ,documented as a scribe. Any additional findings or plans will be noted.
--- NOTE | 2019-09-28 13:18 | P.GSCN ---
History of Present Illness Consult date: 09/28/19 Reason for Consult: abdominal pain, pancreatitis Requesting physician: Jojo Chavez History of present illness: CHIEF COMPLAINT: Abdominal pain HISTORY OF PRESENT ILLNESS: 59-year-old male who was admitted to the hospital secondary to pancreatitis. Patient's history of alcohol abuse. Patient states he has not consumed alcohol in the last few days but prior to that he was drinking around a pint a day. Patient states his abdominal pain has improved at the time of examination. He denies nausea or vomiting. Requesting to be started on diet. PAST MEDICAL HISTORY: See list. PAST SURGICAL HISTORY: See list. SOCIAL HISTORY: History of alcohol abuse REVIEW OF SYSTEMS: CONSTITUTIONAL: Denies fever or chills. HEENT: Denies blurred vision, vision changes, or eye pain. Denies hemoptysis CARDIOVASCULAR: Denies chest pain or pressure. RESPIRATORY: No shortness of breath. GASTROINTESTINAL: Refer to HPI for pertinent findings HEMATOLOGIC: Denies bleeding disorders. GENITOURINARY: Denies any blood in urine. SKIN: Denies pruitis. Denies rash. PHYSICAL EXAM: VITAL SIGNS: Reviewed. GENERAL: Well-developed in no acute distress. HEENT: No sclera icterus. Extraocular movements grossly intact. Moist buccal mucosa. Head is atraumatic, normocephalic. ABDOMEN: Soft. Nondistended. Minimally tender. NEUROLOGIC: Alert and oriented. Cranial nerves II through XII grossly intact. LABORATORY DATA: Laboratory data upon admission reveals bilirubin 2.2. AST 175. ALT 75. Alkaline phosphatase 201. Amylase 140. Lipase 874. Repeat laboratory data this morning reveals bilirubin 1.0. AST 86. ALT 75. Alkaline phosphatase 157. Amylase 86. Lipase 496. ASSESSMENT: 1. Abdominal pain 2. Acute pancreatitis, suspect secondary to alcohol use, cannot exclude biliary etiology PLAN: 1. Clear liquid diet 2. Monitor labs 3. Obtain ultrasound abdomen to rule out biliary etiology Nurse practitioner note has been reviewed by physician. Signing provider agrees with the documented findings, assessment, and plan of care. Past Medical History Past Medical History: GERD/Reflux, GI Bleed, Hyperlipidemia, Hypertension, Osteoarthritis (OA) Additional Past Medical History / Comment(s): alcholism , rectal bleed 09/2014, pancreatitis, Cervical disk disease on the neck, gringing History of Any Multi-Drug Resistant Organisms: None Reported Past Surgical History: No Surgical Hx Reported Additional Past Surgical History / Comment(s): MAUREEN FUNDLAPLASTY, EGDs and colonoscopies with benign polypectomies, TOOTH EXTRACTIONS, Past Anesthesia/Blood Transfusion Reactions: No Reported Reaction Additional Past Anesthesia/Blood Transfusion Reaction / Comm: Pt has received blood without reaction. Past Psychological History: No Psychological Hx Reported Additional Psychological History / Comment(s): Pt has a girlfriend of 20 yrs who lives with him. He is independent. He uses no assistive device. He drives. Smoking Status: Current some day smoker Past Alcohol Use History: Daily Additional Past Alcohol Use History / Comment(s): STATES SMOKES CIGARS OCCASIONALLY starting in 2009 Past Drug Use History: None Reported - Past Family History Mother Family Medical History: No Reported History Additional Family Medical History / Comment(s): Mother is healthy and is 78 yrs old. Father Family Medical History: Diabetes Mellitus, Hypertension Additional Family Medical History / Comment(s): Father at age 84 yrs. Medications and Allergies Home Medications Medication Instructions Recorded Confirmed Type Hydrochlorothiazide 12.5 mg PO DAILY 11/19/18 09/27/19 History Allergies Allergy/AdvReac Type Severity Reaction Status Date / Time No Known Allergies Allergy Verified 09/27/19 14:54 Surgical - Exam Vital Signs Temp Pulse Resp BP Pulse Ox 97.4 F L 87 16 126/84 99 09/27/19 13:21 09/27/19 13:21 09/27/19 13:21 09/27/19 13:21 09/27/19 13:21 Results - Labs 09/28/19 07:35 09/28/19 07:35 Abnormal Lab Results - Last 24 Hours (Table) 09/27/19 09/27/19 09/28/19 Range/Units 13:45 13:45 07:35 RBC 4.03 L (4.30-5.90) m/uL Hgb (13.0-17.5) gm/dL MCV 104.6 H (80.0-100.0) fL Chloride 109 H (98-107) mmol/L Carbon Dioxide 21 L (22-30) mmol/L Glucose 115 H 62 L (74-99) mg/dL Total Bilirubin 2.2 H (0.2-1.3) mg/dL AST 175 H 86 H (17-59) U/L ALT 75 H 75 H (21-72) U/L Alkaline Phosphatase 201 H 157 H (38-126) U/L Albumin 3.4 L (3.5-5.0) g/dL Amylase 140 H (30-110) U/L Lipase 874 H 496 H (23-300) U/L 09/28/19 Range/Units 07:35 RBC 3.65 L (4.30-5.90) m/uL Hgb 12.3 L (13.0-17.5) gm/dL MCV 107.5 H (80.0-100.0) fL Chloride (98-107) mmol/L Carbon Dioxide (22-30) mmol/L Glucose (74-99) mg/dL Total Bilirubin (0.2-1.3) mg/dL AST (17-59) U/L ALT (21-72) U/L Alkaline Phosphatase (38-126) U/L Albumin (3.5-5.0) g/dL Amylase (30-110) U/L Lipase (23-300) U/L Diabetes panel 09/27/19 09/28/19 Range/Units 13:45 07:35 Sodium 139 138 (137-145) mmol/L Potassium 3.9 4.3 (3.5-5.1) mmol/L Chloride 105 109 H (98-107) mmol/L Carbon Dioxide 26 21 L (22-30) mmol/L BUN 13 11 (9-20) mg/dL Creatinine 1.14 1.00 (0.66-1.25) mg/dL Glucose 115 H 62 L (74-99) mg/dL Calcium 10.1 8.7 (8.4-10.2) mg/dL AST 175 H 86 H (17-59) U/L ALT 75 H 75 H (21-72) U/L Alkaline Phosphatase 201 H 157 H (38-126) U/L Total Protein 7.9 6.3 (6.3-8.2) g/dL Albumin 4.4 3.4 L (3.5-5.0) g/dL Calcium panel 09/27/19 09/28/19 Range/Units 13:45 07:35 Calcium 10.1 8.7 (8.4-10.2) mg/dL Albumin 4.4 3.4 L (3.5-5.0) g/dL Pituitary panel 09/27/19 09/28/19 Range/Units 13:45 07:35 Sodium 139 138 (137-145) mmol/L Potassium 3.9 4.3 (3.5-5.1) mmol/L Chloride 105 109 H (98-107) mmol/L Carbon Dioxide 26 21 L (22-30) mmol/L BUN 13 11 (9-20) mg/dL Creatinine 1.14 1.00 (0.66-1.25) mg/dL Glucose 115 H 62 L (74-99) mg/dL Calcium 10.1 8.7 (8.4-10.2) mg/dL Adrenal panel 09/27/19 09/28/19 Range/Units 13:45 07:35 Sodium 139 138 (137-145) mmol/L Potassium 3.9 4.3 (3.5-5.1) mmol/L Chloride 105 109 H (98-107) mmol/L Carbon Dioxide 26 21 L (22-30) mmol/L BUN 13 11 (9-20) mg/dL Creatinine 1.14 1.00 (0.66-1.25) mg/dL Glucose 115 H 62 L (74-99) mg/dL Calcium 10.1 8.7 (8.4-10.2) mg/dL Total Bilirubin 2.2 H 1.0 (0.2-1.3) mg/dL AST 175 H 86 H (17-59) U/L ALT 75 H 75 H (21-72) U/L Alkaline Phosphatase 201 H 157 H (38-126) U/L Total Protein 7.9 6.3 (6.3-8.2) g/dL Albumin 4.4 3.4 L (3.5-5.0) g/dL
--- NOTE | 2019-09-28 14:07 | US ---
EXAMINATION TYPE: US abdomen complete DATE OF EXAM: 09/28/2019 COMPARISON: US 2014 CLINICAL HISTORY: Pancreatitis. Abdomen pain, N/V, exam done portable. EXAM MEASUREMENTS: Liver Length: 16.2 cm Gallbladder Wall: 0.2 cm CBD: 0.8 cm Spleen: n/a Right Kidney: 11.6 x 5.4 x 5.3 cm Left Kidney: 11.9 x 6.0 x 5.0 cm Pancreas: visualized portions wnl, limited by overlying midline bowel gas. No peripancreatic fluid c ollections. Liver: Very mildly coarse in echotexture with very slight heterogeneity. This does limit evaluation for underlying hepatic masses. No discrete hepatic mass seen. Gallbladder: Nearly hydropic, low level echoes within dependant portion, possible sludge, wall measu res wnl Evidence for sonographic Glover's sign: no CBD: dilated Spleen: not visualized due to overlying bowel gas Right Kidney: wnl Left Kidney: wnl Upper IVC: wnl Abd Aorta: visualized portions wnl, limited by overlying midline bowel gas The liver is slightly heterogenous. The intrahepatic portion of the IVC and proximal abdominal aorta are within normal limits. There is no evidence of cholelithiasis. Common bile duct is dilated. Th e visualized portions of the pancreas are homogenous. The spleen is unremarkable. Kidneys are symme tric and free of hydronephrosis. No renal lesions are seen. IMPRESSION: 1. Nearly hydropic gallbladder with dilated common bile duct and gallbladder sludge. HIDA scan is rec ommended to ensure no acute cholecystitis. 2. There is slight heterogeneity the hepatic parenchyma, most commonly related to early hepatic steat osis. 3. Nonvisualization of the spleen, only partial visualization of the pancreas, and limited evaluation of the abdominal aorta also secondary to obscuration by bowel gas. No peripancreatic fluid collectio ns seen.
[2019-09-29] MEDS: HYDROmorphone 0.5 MG/0.5 ML SYRINGE IVP PRN ×6 (00:38→22:38)
[2019-09-29] MEDS: SODIUM CHLORIDE 0.9% 1,000 ML IV SCH ×3 (00:38→16:58)
[2019-09-29 08:22] LABS: ALT 54 U/L (21-72); AST 58 U/L (17-59); African American GFR (CKD) >90 (>60 ml/min/1.73 sqM); Albumin 3.6 g/dL (3.5-5.0); Alkaline Phosphatase 123 U/L (38-126); Anion Gap 6 mmol/L; Blood Urea Nitrogen 7 mg/dL (9-20); Calcium 8.9 mg/dL (8.4-10.2); Carbon Dioxide 21 mmol/L (22-30); Chloride 111 mmol/L (98-107); Glucose 86 mg/dL (74-99); Potassium 4.5 mmol/L (3.5-5.1); Sodium 138 mmol/L (137-145); Total Bilirubin 0.8 mg/dL (0.2-1.3); Total Protein 6.8 g/dL (6.3-8.2)
[2019-09-29 08:44] LABS: HGB 12.3 gm/dL (13.0-17.5); Hypochromasia Slight; MCH 33.9 pg (25.0-35.0); MCHC 31.5 g/dL (31.0-37.0); MCV 107.7 fL (80.0-100.0); Macrocytosis Moderate; Mean Platelet Volume 10.3; Platelet Count 109 k/uL (150-450); RBC 3.62 m/uL (4.30-5.90); RDW 13.9 % (11.5-15.5); WBC 5.5 k/uL (3.8-10.6)
[2019-09-29 08:58] LABS: Eosinophils # (M) 0.28 k/uL (0-0.7); Lymphocytes # (M) 1.54 k/uL (1.0-4.8); Monocytes # (M) 0.22 k/uL (0-1.0); Neutrophils % (M) 63 %; Nucleated Red Blood Cells 0 /100 WBC (0-0); Total Cells Counted 100
[2019-09-29] MEDS: HYDROmorphone 1 MG/ML 1 ML SYRINGE IVP PRN (09:11)
[2019-09-29] MEDS: THIAMINE 100 MG TAB PO SCH ×2 (10:15→16:57)
[2019-09-29] MEDS: HEPARIN SODIUM,PORCINE 5,000 UNIT/ML 1 ML VIAL SQ SCH ×2 (10:15→20:10)
[2019-09-29] MEDS: PANTOPRAZOLE 40 MG/10 ML VIAL IVP SCH ×2 (10:16→20:10)
[2019-09-29] MEDS: NICOTINE 14MG/24HR PATCH TRANSDERM SCH (11:36)
[2019-09-29] MEDS: MULTIVITAMINS, THERA 1 EACH TAB PO SCH (12:14)
[2019-09-29] MEDS: FOLIC ACID 1 MG TAB PO SCH (12:14)
--- NOTE | 2019-09-29 14:29 | P.PN ---
<Adamaris Walker - Last Filed: 09/29/19 14:26> Subjective Progress Note Date: 09/29/19 CHIEF COMPLAINT: Abdominal pain HISTORY OF PRESENT ILLNESS: Patient examined this morning at bedside. He denies nausea or vomiting. He continues to plan of abdominal pain. Currently rating pain 8 out of 10. Tolerating liquid diet. Abdominal ultrasound completed yesterday reveals nearly hydropic gallbladder and sludge. No evidence of cholelithiasis. Common bile duct is dilated. WBC 5.5. Hemoglobin 12.3. Bilirubin 0.8. AST 58. ALT 54. Alkaline phosphatase 123. PHYSICAL EXAM: VITAL SIGNS: Reviewed. GENERAL: Well-developed in no acute distress. HEENT: No sclera icterus. Extraocular movements grossly intact. Moist buccal mucosa. Head is atraumatic, normocephalic. ABDOMEN: Soft. Nondistended. Minimally tender upon palpation of epigastric region. NEUROLOGIC: Alert and oriented. Cranial nerves II through XII grossly intact. ASSESSMENT: 1. Abdominal pain 2. Acute pancreatitis 3. Abnormal abdominal ultrasound revealing hydropic gallbladder and sludge PLAN: Clear liquid diet Nothing by mouth at midnight Patient to undergo laparoscopic cholecystectomy tomorrow with Dr. Melchor Nurse practitioner note has been reviewed by physician. Signing provider agrees with the documented findings, assessment, and plan of care. Objective - Vital Signs Vital signs: Vital Signs Temp 97.1 F L 09/29/19 12:17 Pulse 43 L 09/29/19 12:17 Resp 16 09/29/19 12:17 BP 139/69 09/29/19 12:17 Pulse Ox 98 09/29/19 12:17 Intake & Output 09/28/19 09/29/19 09/29/19 18:59 06:59 18:59 Intake Total 960 1380 240 Balance 960 1380 240 Intake: Intake, IV Titration 960 1380 Amount Sodium Chloride 0.9% 1, 960 1380 000 ml @ 120 mls/hr IV . Q8H20M [facility] Rx#:[id number] Oral 240 Other: Voiding Method Toilet Toilet # Voids 4 1 - Labs CBC & Chem 7: 09/29/19 07:49 09/29/19 07:49 Labs: Abnormal Lab Results - Last 24 Hours (Table) 09/29/19 09/29/19 Range/Units 07:49 07:49 RBC 3.62 L (4.30-5.90) m/uL Hgb 12.3 L (13.0-17.5) gm/dL MCV 107.7 H (80.0-100.0) fL Plt Count 109 L (150-450) k/uL Chloride 111 H (98-107) mmol/L Carbon Dioxide 21 L (22-30) mmol/L BUN 7 L (9-20) mg/dL Lipase 444 H (23-300) U/L <Noam Melchor - Last Filed: 09/30/19 08:29> Objective - Vital Signs Vital signs: Vital Signs Temp 98.0 F 09/30/19 06:20 Pulse 68 09/30/19 07:44 Resp 15 09/30/19 07:44 BP 148/78 09/30/19 07:44 Pulse Ox 98 09/30/19 07:44 Intake & Output 09/29/19 09/30/19 09/30/19 18:59 06:59 18:59 Intake Total 1680 1320 Balance 1680 1320 Intake: Intake, IV Titration 960 1320 Amount Sodium Chloride 0.9% 1, 960 1320 000 ml @ 120 mls/hr IV . Q8H20M [facility] Rx#:[id number] Oral 720 Other: Voiding Method Toilet # Voids 3 2 - Labs CBC & Chem 7: 09/29/19 07:49 09/29/19 07:49 Labs: Abnormal Lab Results - Last 24 Hours (Table) 09/29/19 Range/Units 07:49 RBC 3.62 L (4.30-5.90) m/uL Hgb 12.3 L (13.0-17.5) gm/dL MCV 107.7 H (80.0-100.0) fL Plt Count 109 L (150-450) k/uL Assessment and Plan Plan: Patient undergo laparoscopic cholecystectomy in the a.m.
--- NOTE | 2019-09-29 16:24 | P.PN ---
Subjective Progress Note Date: 09/29/19 This is a 59-year-old gentleman admitted with abdominal pain ,acute on chronic pancreatitis, alcohol abuse, nicotine dependence and multiple other medical issues. Patient reports he drinks about 1-1/2 pints per day.NPO, continues to have significant mid epigastric abdominal pain. Continues on IV fluid hy dration. Afebrile, normal WBC. She bili normalized, LFTs improving, lipase down to 496. 09/29/2019 NPO, continues to improve, lipase further decreased to 444. T bili, LFTs within normal limits. Abdomen softer with minimal tenderness around the xiphoid. Afebrile, normal WBC. Abdominal ultrasound completed yesterday reporting atrophic gallbladder, dilated common bile duct, gallbladder sludge. Evaluated by surgery, patient is scheduled for laparoscopic cholecystectomy tomorrow. Objective - Vital Signs Vital signs: Vital Signs Temp 97.1 F L 09/29/19 12:17 Pulse 43 L 09/29/19 12:17 Resp 16 09/29/19 12:17 BP 139/69 09/29/19 12:17 Pulse Ox 98 09/29/19 12:17 Intake & Output 09/28/19 09/29/19 09/29/19 18:59 06:59 18:59 Intake Total 960 1380 240 Balance 960 1380 240 Intake: Intake, IV Titration 960 1380 Amount Sodium Chloride 0.9% 1, 960 1380 000 ml @ 120 mls/hr IV . Q8H20M [facility] Rx#:[id number] Oral 240 Other: Voiding Method Toilet Toilet # Voids 4 1 - Exam PHYSICAL EXAM: VITAL SIGNS: As above GENERAL: Sitting up in bed, no acute distress HEENT: Conjunctivae normal. eyes normal. Oral mucosa moist. NECK: No JVD. No thyroid enlargement. CARDIOVASCULAR: S1, S2 regular. No murmur RESPIRATION: Breath sounds diminished in the bases. No rhonchi or crackles. No bronchial breathing. ABDOMEN: Soft, nondistended, mild tenderness at the xiphoid, No guarding. no masses palpable. Bowel sounds heard. LEGS: No edema. no swelling. PSYCHIATRY: Alert and oriented X3, mood and affect normal. NERVOUS SYSTEM: Cranial N 2-12 grossly normal. Moves all 4 limbs. No focal deficits. Strength and sensation grossly intact.. Skin: no rash, normal skin turgor. - Labs CBC & Chem 7: 09/29/19 07:49 09/29/19 07:49 Labs: Abnormal Lab Results - Last 24 Hours (Table) 09/29/19 09/29/19 Range/Units 07:49 07:49 RBC 3.62 L (4.30-5.90) m/uL Hgb 12.3 L (13.0-17.5) gm/dL MCV 107.7 H (80.0-100.0) fL Plt Count 109 L (150-450) k/uL Chloride 111 H (98-107) mmol/L Carbon Dioxide 21 L (22-30) mmol/L BUN 7 L (9-20) mg/dL Lipase 444 H (23-300) U/L Assessment and Plan Assessment: Acute on chronic pancreatitis -Increased bilirubin with LFTs. Possibly alcoholic hepatitis. -Atrophic gallbladder, dilated common bile duct, sludge. -Alcohol abuse -Nicotine dependence -History of GI bleed -Hypertension -Hyperlipidemia -Cervical degenerative joint disease -History of Cal Fundoplasty. Plan: Continue on current medication regime ,monitoring and symptomatic treatment. Maintain gentle IV fluid hydration. Scheduled for laparoscopic c holecystectomy tomorrow. Smoking and alcohol cessation reinforced. The impression and plan of care has been dictated as directed. : I performed a history and examination of this patient, discussed the same with the dictator. I agree with the dictator's note ,documented as a scribe. Any a dditional findings or plans will be noted.
[2019-09-30] MEDS: HYDROmorphone 0.5 MG/0.5 ML SYRINGE IVP PRN ×6 (01:30→22:41)
[2019-09-30] MEDS: SODIUM CHLORIDE 0.9% 1,000 ML IV SCH ×3 (01:31→22:33)
[2019-09-30] MEDS ORDERED: IV FLUID CONTINUATION 1,000 ML IV ONE (07:37)
[2019-09-30] MEDS: ONDANSETRON 4 MG/2 ML VIAL IVP ONE ×2 (07:53→09:34)
[2019-09-30] MEDS: HYDROmorphone 1 MG/ML 1 ML SYRINGE IVP ONE ×2 (08:13→09:50)
[2019-09-30] MEDS: THIAMINE 100 MG TAB PO SCH ×2 (08:24→16:27)
[2019-09-30] MEDS: NICOTINE 14MG/24HR PATCH TRANSDERM SCH (08:25)
[2019-09-30] MEDS: HYDROCHLOROTHIAZIDE 12.5 MG CAP PO SCH (08:25)
[2019-09-30] MEDS: PANTOPRAZOLE 40 MG/10 ML VIAL IVP SCH ×2 (08:25→21:07)
[2019-09-30] MEDS: HEPARIN SODIUM,PORCINE 5,000 UNIT/ML 1 ML VIAL SQ SCH ×2 (08:25→21:07)
[2019-09-30] MEDS ORDERED: HEPARIN SODIUM,PORCINE 5,000 UNIT/ML 1 ML VIAL SQ ONE (08:29)
[2019-09-30] MEDS ORDERED: GLYCOPYRROLATE 0.2 MG/ML 2 ML VIAL ONE (08:30)
[2019-09-30] MEDS ORDERED: MIDAZOLAM 2 MG/2 ML VIAL ONE (08:30)
[2019-09-30] MEDS ORDERED: PROPOFOL 10 MG/ML 20 ML VIAL IV ONE (08:30)
[2019-09-30] MEDS ORDERED: NEOSTIGMINE 1 MG/ML 10 ML VIAL ONE (08:30)
[2019-09-30] MEDS ORDERED: LIDOCAINE 1% INJ 10MG/ML (20 ML MDV) ONE (08:30)
[2019-09-30] MEDS ORDERED: SUCCINYLCHOLINE CHLORIDE 100 MG/5 ML SYR IV ONE (08:30)
[2019-09-30] MEDS ORDERED: ESMOLOL 100 MG/10 ML VIAL ONE (08:30)
[2019-09-30] MEDS ORDERED: fentaNYL (PF) 50 MCG/ML 2 ML AMP ONE (08:30)
[2019-09-30] MEDS ORDERED: ROCURONIUM BROMIDE 10 MG/ML 10 ML VIAL IV ONE (08:30)
[2019-09-30] MEDS ORDERED: LACTATED RINGERS 1,000 ML IV ONE (08:31)
[2019-09-30] MEDS ORDERED: SODIUM CHLORIDE 0.9% 50 ML with ceFAZolin 2,000 MG IV ONE ×2 (08:33)
[2019-09-30] MEDS ORDERED: LIDOCAINE 1%-EPI 1:100,000 20 ML VIAL SQ ONE (08:48)
--- NOTE | 2019-09-30 09:21 | P.OP ---
Date of Procedure: 09/30/19 Preoperative Diagnosis: Cholelithiasis Postoperative Diagnosis: Cholecystitis Cholelithiasis Procedure(s) Performed: Laparoscopic cholecystectomy Anesthesia: LUIS A Surgeon: Noam Melchor Estimated Blood Loss (ml): 5 Pathology: other (Gallbladder) Condition: stable Disposition: PACU Description of Procedure: The patient was placed on the operating table. The patient received a general endotracheal tube anesthesia. The patients abdomen was prepped and draped in the usual sterile fashion. Through an infraumbilical stab incision, the fascia of the anterior abdominal wall was grasped with a pair of Kochers and then the Veress needle was placed in the peritoneal cavity. Position of the Veress needle was confirmed with positive drop test. The abdomen was then insufflated. After adequate insufflation, the 10 mm trocar was placed in the peritoneal cavity. Following this the laparoscope was placed in the peritoneal cavity. The patient was placed in the head-up, right side up position and then a 5 mm trocar was placed in the right lateral and right subcostal position under direct visualization. A 8 mm trocar was placed in the epigastric position. The gallbladder was grasped in the fundus and infundibulum. Traction on the gallbladder was placed in the lateral and the cephalad positions. The triangle of Calot was visualized.. The cystic duct was bluntly dissected until the union of the cystic duct and common bile duct was seen. A critical view of safety was achieved. The cystic duct was then divided and sealed with the Harmonic scissors. A PDS Endoloop was then placed throughout the cystic duct stump. The cystic artery divided and sealed with the Harmonic scissors. The gallbladder was then removed from the liver bed using Harmonic scissors. The gallbladder was then extracted through the epigastric port site. Operative field was checked for any bleeding spots and Harmonic scissors was used to coagulate the liver bed. The abdomen was irrigated. The trocars were removed. The skin was closed using interrupted 3-0 Vicryl suture. Dermabond dressing were applied. The patient tolerated the procedure well.
[2019-09-30] MEDS ORDERED: HYDROmorphone 1 MG/ML 1 ML SYRINGE IVP ONE (09:34)
--- NOTE | 2019-09-30 10:45 | P.PN ---
Subjective Progress Note Date: 09/30/19 This is a 59-year-old gentleman admitted with abdominal pain ,acute on chronic pancreatitis, alcohol abuse, nicotine dependence and multiple other medical issues. Patient reports he drinks about 1-1/2 pints per day.NPO, continues to have significant mid epigastric abdominal pain. Continues on IV fluid hy dration. Afebrile, normal WBC. She bili normalized, LFTs improving, lipase down to 496. 09/29/2019 NPO, continues to improve, lipase further decreased to 444. T bili, LFTs within normal limits. Abdomen softer with minimal tenderness around the xiphoid. Afebrile, normal WBC. Abdominal ultrasound completed yesterday reporting atrophic gallbladder, dilated common bile duct, gallbladder sludge. Evaluated by surgery, patient is scheduled for laparoscopic cholecystectomy tomorrow. 09/30/2019 NPO, scheduled for laparoscopic cholecystectomy this morning.VSS. Is pending.Labs pending Objective - Vital Signs Vital signs: Vital Signs Temp 97.6 F 09/30/19 10:24 Pulse 57 L 09/30/19 10:24 Resp 13 09/30/19 10:24 BP 163/94 09/30/19 10:24 Pulse Ox 98 09/30/19 10:24 Intake & Output 09/29/19 09/30/19 09/30/19 18:59 06:59 18:59 Intake Total 1680 1320 700 Output Total 460 Balance 1680 1320 240 Intake: IV 700 Intake, IV Titration 960 1320 Amount Sodium Chloride 0.9% 1, 960 1320 000 ml @ 120 mls/hr IV . Q8H20M [facility] Rx#:[id number] Oral 720 Output: Urine 450 Estimated Blood Loss 10 Other: Voiding Method Toilet Toilet # Voids 3 2 - Exam PHYSICAL EXAM: VITAL SIGNS: As above GENERAL: Lying on stretcher, no acute distress HEENT: Conjunctivae normal. eyes normal. NECK: No JVD. No thyroid enlargement. CARDIOVASCULAR: S1, S2 regular. No murmur RESPIRATION: Breath sounds diminished in the bases. No rhonchi or crackles. No bronchial breathing. ABDOMEN: Soft, nondistended, mild diffuse tenderness, No guarding. no masses palpable. Bowel sounds heard. LEGS: No edema. no swelling. PSYCHIATRY: Alert and oriented X3, mood and affect normal. NERVOUS SYSTEM: Cranial N 2-12 grossly normal. Moves all 4 limbs. No focal deficits. Strength and sensation grossly intact.. Skin: no rash, normal skin turgor. - Labs CBC & Chem 7: 09/29/19 07:49 09/29/19 07:49 Assessment and Plan Assessment: Acute on chronic pancreatitis -Increased bilirubin with LFTs. Possibly alcoholic hepatitis. -Atrophic gallbladder, dilated common bile duct, sludge. -Alcohol abuse -Nicotine dependence -History of GI bleed -Hypertension -Hyperlipidemia -Cervical degenerative joint disease -History of Cal Fundoplasty. Plan: Continue on current medication regime ,monitoring and symptomatic treatment. Maintain gentle IV fluid hydration. Pending laparoscopic cholecystectomy, this morning. Labs pending. The impression and plan of care has been dictated as directed. : I performed a history and examination of this patient, discussed the same with the dictator. I agree with the dictator's note ,documented as a scribe. Any additional findings or plans will be noted.
[2019-09-30] MEDS: MULTIVITAMINS, THERA 1 EACH TAB PO SCH (12:04)
[2019-09-30] MEDS: FOLIC ACID 1 MG TAB PO SCH (12:04)
[2019-09-30 13:28] LABS: African American GFR (CKD) >90 (>60 ml/min/1.73 sqM); Anion Gap 10 mmol/L; Blood Urea Nitrogen 4 mg/dL (9-20); Calcium 9.2 mg/dL (8.4-10.2); Carbon Dioxide 18 mmol/L (22-30); Chloride 110 mmol/L (98-107); Glucose 80 mg/dL (74-99); Sodium 138 mmol/L (137-145)
[2019-09-30 13:34] LABS: Basophils % (A) 0 %; Eosinophils # (A) 0.1 k/uL (0-0.7); Eosinophils % (A) 1 %; HCT 41.5 % (39.0-53.0); HGB 13.6 gm/dL (13.0-17.5); Lymphocytes # (A) 0.8 k/uL (1.0-4.8); Lymphocytes % (A) 10 %; MCH 34.3 pg (25.0-35.0); MCHC 32.9 g/dL (31.0-37.0); MCV 104.4 fL (80.0-100.0); Macrocytosis Moderate; Mean Platelet Volume 11.6; Monocytes # (A) 0.5 k/uL (0-1.0); Monocytes % (A) 6 %; Neutrophils # (A) 6.3 k/uL (1.3-7.7); Neutrophils % (A) 80 %; Potassium 4.6 mmol/L (3.5-5.1); RBC 3.97 m/uL (4.30-5.90); RDW 14.1 % (11.5-15.5); WBC 7.9 k/uL (3.8-10.6)
[2019-09-30 14:13] LABS: Anisocytosis (M) Present; Platelet Count 154 k/uL (150-450); Poikilocytosis (M) Present
[2019-10-01] MEDS: HYDROmorphone 0.5 MG/0.5 ML SYRINGE IVP PRN ×4 (02:03→20:36)
[2019-10-01] MEDS: SODIUM CHLORIDE 0.9% 1,000 ML IV SCH ×3 (04:49→20:41)
[2019-10-01] MEDS: PANTOPRAZOLE 40 MG/10 ML VIAL IVP SCH (07:39)
[2019-10-01] MEDS: HEPARIN SODIUM,PORCINE 5,000 UNIT/ML 1 ML VIAL SQ SCH ×2 (07:39→20:07)
[2019-10-01] MEDS: HYDROCHLOROTHIAZIDE 12.5 MG CAP PO SCH (07:40)
[2019-10-01] MEDS: THIAMINE 100 MG TAB PO SCH ×2 (07:40→16:35)
[2019-10-01] MEDS: NICOTINE 14MG/24HR PATCH TRANSDERM SCH (07:40)
[2019-10-01] MEDS: MULTIVITAMINS, THERA 1 EACH TAB PO SCH (12:35)
[2019-10-01] MEDS: FOLIC ACID 1 MG TAB PO SCH (12:35)
[2019-10-01] MEDS: HYDROcodone/APAP 7.5-325MG 1 EACH TAB PO PRN ×2 (13:01→16:35)
--- NOTE | 2019-10-01 13:44 | P.PN ---
Subjective Progress Note Date: 10/01/19 CHIEF COMPLAINT: Abdominal pain HISTORY OF PRESENT ILLNESS: Patient is status post laparoscopic cholecystectomy. Patient examined this morning at bedside. Patient continues to report abdominal discomfort. He is requiring IV narcotics. Patient is tolerating di et. Denies nausea or vomiting. He is passing flatus. Patient reports he has been up into the bathroom but he has not been ambulating in the hallway. PHYSICAL EXAM: VITAL SIGNS: Reviewed. GENERAL: Well-developed in no acute distress. HEENT: No sclera icterus. Extraocular movements grossly intact. Moist buccal mucosa. Head is atraumatic, normocephalic. ABDOMEN: Soft. Nondistended. Appropriate surgical tenderness. Laparoscopic surgical sites clean dry and intact. NEUROLOGIC: Alert and oriented. Cranial nerves II through XII grossly intact. ASSESSMENT: 1. Abdominal pain 2. Acute pancreatitis 3. Abnormal abdominal ultrasound revealing hydropic gallbladder and sludge PLAN: Continue as tolerated Obtain CBC and CMP Obtain incentive spirometer Increase activity as tolerated. Patient encouraged to up in a chair and ambulating in the hallway Avoid IV narcotics if possible. Begin [place] PRN Anticipate discharge home tomorrow Nurse practitioner note has been reviewed by physician. Signing provider agrees with the documented findings, assessment, and plan of care. Objective - Vital Signs Vital signs: Vital Signs Temp 97.9 F 10/01/19 13:00 Pulse 54 L 10/01/19 13:00 Resp 17 10/01/19 13:00 BP 131/82 10/01/19 13:00 Pulse Ox 95 10/01/19 13:00 Intake & Output 09/30/19 10/01/19 10/01/19 18:59 06:59 18:59 Intake Total 1660 100 240 Output Total 460 800 Balance 1200 -700 240 Intake: IV 700 Intake, IV Titration 960 Amount Sodium Chloride 0.9% 1, 960 000 ml @ 120 mls/hr IV . Q8H20M [facility] Rx#:[id number] Oral 100 240 Output: Urine 450 800 Estimated Blood Loss 10 Other: Voiding Method Toilet Toilet # Voids 1 - Labs CBC & Chem 7: 09/30/19 12:51 09/30/19 12:51 Labs: Abnormal Lab Results - Last 24 Hours (Table) 09/30/19 Range/Units 12:51 RBC 3.97 L (4.30-5.90) m/uL MCV 104.4 H (80.0-100.0) fL Lymphocytes # 0.8 L (1.0-4.8) k/uL
[2019-10-01 14:56] LABS: Basophils % (A) 1 %; Eosinophils # (A) 0.3 k/uL (0-0.7); Eosinophils % (A) 5 %; HCT 36.4 % (39.0-53.0); HGB 11.6 gm/dL (13.0-17.5); Lymphocytes # (A) 1.2 k/uL (1.0-4.8); Lymphocytes % (A) 23 %; MCH 33.9 pg (25.0-35.0); MCHC 31.8 g/dL (31.0-37.0); MCV 106.5 fL (80.0-100.0); Macrocytosis Moderate; Mean Platelet Volume 10.6; Monocytes # (A) 0.3 k/uL (0-1.0); Monocytes % (A) 5 %; Neutrophils # (A) 3.3 k/uL (1.3-7.7); Neutrophils % (A) 63 %; Platelet Count 174 k/uL (150-450); RBC 3.42 m/uL (4.30-5.90); WBC 5.3 k/uL (3.8-10.6)
[2019-10-01 15:04] LABS: Albumin 3.2 g/dL (3.5-5.0); Total Bilirubin 0.4 mg/dL (0.2-1.3); Total Protein 6.1 g/dL (6.3-8.2)
[2019-10-01] MEDS: PANTOPRAZOLE 40 MG TABLET PO SCH (20:07)
[2019-10-02] MEDS: HYDROmorphone 0.5 MG/0.5 ML SYRINGE IVP PRN (02:41)
[2019-10-02] MEDS: SODIUM CHLORIDE 0.9% 1,000 ML IV SCH ×2 (04:51→11:31)
[2019-10-02] MEDS: HYDROcodone/APAP 7.5-325MG 1 EACH TAB PO PRN ×2 (08:39→13:06)
[2019-10-02] MEDS: HEPARIN SODIUM,PORCINE 5,000 UNIT/ML 1 ML VIAL SQ SCH (08:55)
[2019-10-02] MEDS: THIAMINE 100 MG TAB PO SCH (08:55)
[2019-10-02] MEDS: PANTOPRAZOLE 40 MG TABLET PO SCH (08:55)
[2019-10-02] MEDS: HYDROCHLOROTHIAZIDE 12.5 MG CAP PO SCH (08:55)
[2019-10-02] MEDS: NICOTINE 14MG/24HR PATCH TRANSDERM SCH (09:20)
[2019-10-02] MEDS: FOLIC ACID 1 MG TAB PO SCH (11:52)
[2019-10-02] MEDS: MULTIVITAMINS, THERA 1 EACH TAB PO SCH (11:52)
[2019-10-02 13:13] VITALS: BP 138/88; PULSE 54; RESP 18; TEMP 97.6
--- NOTE | 2019-10-02 13:33 | P.DS ---
Providers Date of admission: 09/29/19 09:38 Expected date of discharge: 10/02/19 Attending physician: Jeffry Yang Consults: 09/28/19 11:07 Consult Physician Routine Consulting Provider: Noam Melchor Consult Reason/Comments: abd pain, pancreatitis Do you want consulting provider notified?: Yes Primary care physician: Jeffry Yang - Discharge Diagnosis(es) (1) Abdominal pain Current Visit: Yes Status: Acute (2) Pancreatitis Current Visit: Yes Status: Acute (3) GERD (gastroesophageal reflux disease) Current Visit: No Status: Acute (4) Choledocholithiasis with acute cholecystitis Current Visit: Yes Status: Acute Hospital Course: Patient was admitted for acute pancreatitis and found to have acute choledocholithiasis underwent a laparoscopic cholecystectomy and was feeling much better and cleared for discharge from surgical standpoint. Patient has a significant alcohol intake history and was counseled on that as well as abstaining the patient's states he is a 30 been a week and is on the . He'll be discharged today Patient Condition at Discharge: Stable Plan - Discharge Summary New Discharge Prescriptions: New Hydrocodone/Acetaminophen [Wheeling 5-325] 1 tab PO Q6HR PRN 3 Days #12 tab PRN Reason: Pain Folic Acid 1 mg PO DAILY@1200 tab Nicotine 14Mg/24Hr Patch [Habitrol] 1 patch TRANSDERM DAILY patch Multivitamins, Thera [Multivitamin (formulary)] 1 each PO DAILY@1200 tab Thiamine [Vitamin B-1] 100 mg PO BID-W/MEALS tab Continue Hydrochlorothiazide 12.5 mg PO DAILY Discharge Medication List Hydrochlorothiazide 12.5 mg PO DAILY 11/19/18 [History] Hydrocodone/Acetaminophen [[place] 5-325] 1 tab PO Q6HR PRN 3 Days #12 tab 10/01/19 [Rx] Folic Acid 1 mg PO DAILY@1200 tab 10/02/19 [Rx] Multivitamins, Thera [Multivitamin (formulary)] 1 each PO DAILY@1200 tab 10/02/19 [Rx] Nicotine 14Mg/24Hr Patch [Habitrol] 1 patch TRANSDERM DAILY patch 10/02/19 [Rx] Thiamine [Vitamin B-1] 100 mg PO BID-W/MEALS tab 10/02/19 [Rx] Follow up Appointment(s)/Referral(s): Noam Melchor MD [STAFF PHYSICIAN] - 1 Week Jeffry Yang DO [Primary Care Provider] - 1 Week Patient Instructions/Handouts: Hydrocodone/Acetaminophen (By mouth), Pancreatitis (DC) Activity/Diet/Wound Care/Special Instructions: No driving while taking [place] No lifting over 10 pounds You may shower. No soaking or tub baths Very light activity until you are reevaluated at your follow up appointment with your surgeon diet as tolerated
--- NOTE | 2019-10-02 13:36 | P.PN ---
Subjective Progress Note Date: 10/01/19 Patient 59-year-old status post laparoscopic cholecystectomy secondary to gallstones. He is upright in bed and eating he does feel really weak he wishes to stay another day because of his unsteadiness. He denies any fever nausea or vomiting. Objective - Vital Signs Vital signs: Vital Signs Temp 98.1 F 10/01/19 20:41 Pulse 53 L 10/01/19 20:41 Resp 16 10/01/19 20:41 BP 138/76 10/01/19 20:41 Pulse Ox 93 L 10/01/19 20:41 Intake & Output 10/01/19 10/01/19 10/02/19 06:59 18:59 06:59 Intake Total 100 240 Output Total 800 Balance -700 240 Intake: Oral 100 240 Output: Urine 800 Other: Voiding Method Toilet # Voids 1 3 - Exam GENERAL: This is a -year-old in no apparent distress at the time of examination. Pleasant and cooperative. HEENT: Head is atraumatic, normocephalic. Pupils are equal, round, and reactive to light. Sclerae anicteric. Conjunctivae are clear. Mucus membranes of the mouth are moist. Neck is supple. RESPIRATORY: Clear to auscultation. No wheezes, rales, or rhonchi. No use of accessory muscles. Patient maintaining oxygen saturation greater than 92%. No chest wall tenderness is noted on palpation or with deep breathing. CARDIOVASCULAR: Regular rate and rhythm. S1 and S2 noted. No systolic or diastolic murmur auscultated. No JVD noted. No S3 or S4 noted. GASTROINTESTINAL: No distention noted. Abdomen soft and round. Normal active bowel sounds auscultated x 4 quadrants. Incisions intact and tender to palpation. INTEGUMENTARY: No cyanosis. No jaundice. No rashes noted. No cellulitis noted. EXTREMITIES: 2+ peripheral pulses. No evidence of peripheral edema. No calf te nderness noted. NEUROLOGIC: Cranial nerves II-XII intact. PSYCHIATRIC: Awake, alert, and oriented X 3. Appropriate affect. Intact judgement and insight. - Labs CBC & Chem 7: 10/01/19 14:25 10/01/19 14:25 Labs: Abnormal Lab Results - Last 24 Hours (Table) 10/01/19 10/01/19 Range/Units 14:25 14:25 RBC 3.42 L (4.30-5.90) m/uL Hgb 11.6 L (13.0-17.5) gm/dL Hct 36.4 L (39.0-53.0) % MCV 106.5 H (80.0-100.0) fL Chloride 108 H (98-107) mmol/L BUN 7 L (9-20) mg/dL Glucose 107 H (74-99) mg/dL Total Protein 6.1 L (6.3-8.2) g/dL Albumin 3.2 L (3.5-5.0) g/dL Assessment and Plan (1) Abdominal pain Current Visit: Yes Status: Acute Code(s): R10.9 - UNSPECIFIED ABDOMINAL PAIN SNOMED Code(s): 85052038 (2) Pancreatitis Current Visit: Yes Status: Acute Code(s): K85.90 - ACUTE PANCREATITIS WITHOUT NECROSIS OR INFECTION, UNSP SNOMED Code(s): 51873502 (3) GERD (gastroesophageal reflux disease) Current Visit: No Status: Acute Code(s): K21.9 - GASTRO-ESOPHAGEAL REFLUX DISEASE WITHOUT ESOPHAGITIS SNOMED Code(s): 295125820 (4) S/P laparoscopic cholecystectomy Current Visit: Yes Status: Acute Code(s): Z90.49 - ACQUIRED ABSENCE OF OTHER SPECIFIED PARTS OF DIGESTIVE TRACT SNOMED Code(s): 608105081 Plan: Continue postop care ambulation DVT prophylaxis pain control advancing diet. Plan at discharge 24 hours. Plan on abstinence from alcohol.
== END 2019-10-02 14:20 | disposition home or self-care (01) | DRG 418 ==
LOC: EC 13:08 → 3NMEDONC 14:26 → OBSVTOIN 09-29 09:38
PROVIDERS: ADMIT Family Medicine; ATTEND Family Medicine
PROC: 0FT44ZZ Resection of Gallbladder, Percutaneous Endoscopic Approach (ICD-10-PCS; principal; 2019-09-30 14:15)
DX: K85.20 Alcohol induced acute pancreatitis without necrosis or infection (principal); K82.1 Hydrops of gallbladder; K80.62 Calculus of gallbladder and bile duct with acute cholecystitis without obstruction; K86.0 Alcohol-induced chronic pancreatitis; K21.9 Gastro-esophageal reflux disease without esophagitis; E78.5 Hyperlipidemia, unspecified; I10 Essential (primary) hypertension; F10.20 Alcohol dependence, uncomplicated; M47.812 Spondylosis without myelopathy or radiculopathy, cervical region; M19.90 Unspecified osteoarthritis, unspecified site; Y90.0 Blood alcohol level of less than 20 mg/100 ml; F17.290 Nicotine dependence, other tobacco product, uncomplicated; Z71.6 Tobacco abuse counseling; Z71.41 Alcohol abuse counseling and surveillance of alcoholic; Z79.899 Other long term (current) drug therapy; Z87.19 Personal history of other diseases of the digestive system; Z98.890 Other specified postprocedural states; Z83.3 Family history of diabetes mellitus; Z82.49 Family history of ischemic heart disease and other diseases of the circulatory system
CPT/HCPCS: 36415; 76700; 80048; 80053; 80320; 82150; 83690; 85025; 88304; 96361; 96374; 96375; 99284

== ENCOUNTER 2019-11-11 11:56 | Day surgery (SDC) | payer MEDICARE, OTHER ==
[2019-11-09 15:06] VITALS: BMI 25.7
[~2019-11-11 11:56] MED LIST: DEXAMETHASONE SOD PHOSPHATE 10 MG/ML 1 ML VIAL IV ONE; LACTATED RINGERS 1,000 ML IV SCH; MIDAZOLAM 2 MG/2 ML VIAL IV PRN; ONDANSETRON 4 MG/2 ML VIAL IVP ONE; SCOPOLAMINE 1.5MG/72HR PATCH TRANSDERM ONE
[2019-11-11] MEDS ORDERED: LIDOCAINE 1% 20 ML VIAL (10MG/ML) FOR IV START INTRADERMA ONE (12:36)
[2019-11-11] MEDS ORDERED: LIDOCAINE 1% INJ 10MG/ML (20 ML MDV) ONE (13:13)
[2019-11-11] MEDS ORDERED: MIDAZOLAM 2 MG/2 ML VIAL ONE (13:13)
[2019-11-11] MEDS ORDERED: PROPOFOL 10 MG/ML 20 ML VIAL IV ONE (13:13)
[2019-11-11] MEDS ORDERED: HYDROmorphone (PF) 1 MG/ML ONE (13:13)
[2019-11-11] MEDS ORDERED: SUCCINYLCHOLINE CHLORIDE 100 MG/5 ML SYR IV ONE (13:13)
[2019-11-11] MEDS ORDERED: fentaNYL (PF) 50 MCG/ML 2 ML AMP ONE (13:13)
[2019-11-11] MEDS ORDERED: BUPIVACAINE (PF) 0.25% 30 ML VIAL SQ ONE ×2 (13:39→14:29)
[2019-11-11] MEDS ORDERED: LACTATED RINGERS 1,000 ML IV ONE (14:07)
[2019-11-11 14:42] VITALS: TEMP 98.5
--- NOTE | 2019-11-11 14:47 | P.OP ---
Date of Procedure: 11/11/19 Preoperative Diagnosis: Hallux abductovalgus deformity with hallux limitus right foot Postoperative Diagnosis: Same Procedure(s) Performed: Frank bunionectomy right foot Anesthesia: GETA Surgeon: Feroz Ulrich Indications for Procedure: Pain with ambulation and arthritic first metatarsal phalangeal joint Operative Findings: Unremarkable Description of Procedure: On the date of surgery the patient was taken the operating room in good condition placed on the operating table in a supine position where an IV was started and general anesthetic agents were administered the patient's right foot and ankle were then prepped and draped in the usual aseptic manner Patient's right foot and ankle were then elevated and exsanguinated of blood and after approximately 2 minutes. A time the ankle tourniquet which had been placed above the malleoli of the patient's right ankle was inflated to approximately 275 mmHg At this point in time attention was directed to the dorsal aspect of the first metatarsal phalangeal joint where an approximately 7 cm dorsal linear incision was made the incision was deepened down through the level of subcutaneous tissue layers. All neurovascular structures encountered were identified isolated and were retracted and any bleeding vessels were clamped electrocauterized. Throughout the surgical procedure copious amounts sterile saline solution was used to irrigate the surgical site. Line dissection was then carried deep down to level Periosteal Structures Which Were Incised in Line with the Original Skin Incision and Underscored and Retracted from the Underlying Bone Flap Was Created Distally at the Level of the Proximal Phalanx the Capsule and Periosteal Structures. Utilizing Oscillating Bone Saw the Hyperostosis and Bone Spurs Present on the Dorsal Aspect of the First Metatarsal Phalangeal Joint and the rigid 5 bone on the medial side of the first metatarsal head was resected flush in line with the shaft of the first metatarsal and removed from the surgical site. Adequate level approximately 1 cm distal to the metatarsal phalangeal joint a dorsal to plantar osteotomy was made and the base of the proximal phalanx was excised and removed from this surgical site. An copious amounts sterile saline solution was used to irrigate the surgical site capsular flap created on the base of the proximal phalanx was then sutured to the lateral side of the first metatarsal phalangeal joint ligaments and the Periosteal Structures Were Coaptated and Maintained Utilizing a Combination of 201 3-0 Vicryl Simple Interrupted Suture the Skin Was Then Closed Utilizing 4-0 Nylon Simple Interrupted Suture Adaptic Kerlix Fluffs Soaked in Betadine Four-Inch Conformer and 4 Inch Coban Was Used To Form a Compression Dressing and the Ankle Tourniquet to the Patient's Right Ankle Was Deflated Adequate Hemostatic Return Was Seen in All Digits of the Right Foot Specifically the First DigitHallux Line the Patient Tolerated the Surgery and Anesthesia Well Was Taken Recovery Room in Good Postoperative Condition
[2019-11-11] MEDS: HYDROmorphone 0.5 MG/0.5 ML SYRINGE IVP PRN ×2 (14:52→15:04)
[2019-11-11 15:25] VITALS: RESP 16
[2019-11-11] MEDS ORDERED: HYDROcodone/APAP 5-325MG 1 EACH TAB PO ONE (15:36)
[2019-11-11 15:54] VITALS: BP 149/83; PULSE 55
== END 2019-11-11 16:10 | disposition home or self-care (01) ==
LOC: OR 11:56
PROVIDERS: ATTEND Podiatrist Foot & Ankle Surgery
DX: M20.11 Hallux valgus (acquired), right foot (principal); M20.5X1 Other deformities of toe(s) (acquired), right foot; M19.071 Primary osteoarthritis, right ankle and foot; I10 Essential (primary) hypertension; E78.5 Hyperlipidemia, unspecified; G47.33 Obstructive sleep apnea (adult) (pediatric); Z99.89 Dependence on other enabling machines and devices; K21.9 Gastro-esophageal reflux disease without esophagitis; Z79.899 Other long term (current) drug therapy; M21.611 Bunion of right foot; Z88.6 Allergy status to analgesic agent; Z90.49 Acquired absence of other specified parts of digestive tract
CPT/HCPCS: 88304; 88311; 28292; J2250; J1100; J0690; J2405; J2001; J3010; J1170 ×2; J0330; J2704

== ENCOUNTER 2020-04-12 12:25 | Inpatient (IN) | payer MEDICARE, OTHER ==
[2020-04-12] MEDS ORDERED: HEPARIN SODIUM,PORCINE 5,000 UNIT/ML 1 ML VIAL IV STA (12:42)
[2020-04-12] MEDS ORDERED: NITROGLYCERIN OINT 1 INCH/GM PACKET TOPICAL STA (12:42)
[2020-04-12] MEDS ORDERED: ASPIRIN 81 MG PO STA (12:42)
--- NOTE | 2020-04-12 13:07 | ED ---
Chest Pain HPI - General Chief Complaint: Chest Pain Stated Complaint: Chest Pain Time Seen by Provider: 04/12/20 12:34 Source: patient, RN notes reviewed Mode of arrival: wheelchair Limitations: no limitations - History of Present Illness Initial Comments: This is a 59-year-old male presents emergency Department chief complaint of chest pain. Patient states that progressive worsening pain last 3-4 weeks. Patient states he called his primary care physician who felt he may be related to his drinking was advised to stop his alcohol use in which she drinks 2 pints daily and he was placed on and antacids. Patient states the pain is to be only with exertion now it is constant pain. Patient states that he has no associated shortness of breath with his chest pain at this time. He does have history of hypertension and is a smoker. Patient states he was postictal medication for hyperlipidemia but he does not take it. Patient denies any leg pain, leg swelling. No history DVT or PE. No associated abdominal pain. Patient's had no prior cardiac history including NV or stents. - Related Data Home Medications Medication Instructions Recorded Confirmed Valsartan/Hydrochlorothiazide 1 tab PO DAILY 11/09/19 11/11/19 [Diovan Hct 160-12.5 mg Tab] Viagra (Unknown Dose) 1 tab PO DIRECTED PRN 11/09/19 11/11/19 Allergies Allergy/AdvReac Type Severity Reaction Status Date / Time No Known Allergies Allergy Verified 11/09/19 14:42 Review of Systems ROS Statement: Those systems with pertinent positive or pertinent negative responses have been documented in the HPI. ROS Other: All systems not noted in ROS Statement are negative. EKG Findings - EKG Comments: EKG Findings:: EKG performed at 12:39 normal sinus rhythm rate of 89 LA 162 QRS 80 QTC is QTC 360/438 there is noticed to depression V2 through V6, this is new from prior EKG of 10/05/2014 Past Medical History Past Medical History: GERD/Reflux, GI Bleed, Hyperlipidemia, Hypertension, Osteoarthritis (OA) Additional Past Medical History / Comment(s): alcholism , rectal bleed 09/2014, pancreatitis, Cervical disk disease on the neck, gringing History of Any Multi-Drug Resistant Organisms: None Reported Past Surgical History: No Surgical Hx Reported, Cholecystectomy Additional Past Surgical History / Comment(s): MAUREEN FUNDLAPLASTY, EGDs and colonoscopies with benign polypectomies, TOOTH EXTRACTIONS, Past Anesthesia/Blood Transfusion Reactions: No Reported Reaction Additional Past Anesthesia/Blood Transfusion Reaction / Comment(s): Pt has received blood without reaction. Past Psychological History: No Psychological Hx Reported Additional Psychological History / Comment(s): Pt has a girlfriend of 20 yrs who lives with him. He is independent. He uses no assistive device. He drives. Smoking Status: Current some day smoker Past Alcohol Use History: Daily Additional Past Alcohol Use History / Comment(s): STATES SMOKES CIGARS OCCASIONALLY starting in 2009 Past Drug Use History: None Reported - Past Family History Mother Family Medical History: No Reported History Additional Family Medical History / Comment(s): . Father Family Medical History: Diabetes Mellitus, Hypertension Additional Family Medical History / Comment(s): Father at age 84 yrs. General Exam Limitations: no limitations General appearance: alert, in no apparent distress Head exam: Present: atraumatic, normocephalic, normal inspection Eye exam: Present: normal appearance, PERRL, EOMI. Absent: scleral icterus, conjunctival injection, periorbital swelling ENT exam: Present: normal exam, normal oropharynx, mucous membranes moist Neck exam: Present: normal inspection, full ROM. Absent: tenderness, meningismus, lymphadenopathy Respiratory exam: Present: normal lung sounds bilaterally. Absent: respiratory distress, wheezes, rales, rhonchi, stridor Cardiovascular Exam: Present: normal rhythm, tachycardia, normal heart sounds. Absent: systolic murmur, diastolic murmur, rubs, gallop, clicks GI/Abdominal exam: Present: soft, normal bowel sounds. Absent: distended, tenderness, guarding, rebound, rigid Neurological exam: Present: alert, oriented X3, CN II-XII intact Skin exam: Present: warm, dry, intact, normal color. Absent: rash Course Vital Signs 04/12/20 12:25 Temperature 97.3 F L Pulse Rate 104 H Respiratory 18 Rate Blood Pressure 114/77 O2 Sat by Pulse 100 Oximetry Chest Pain MDM - [facility] Labs, x-ray and KUB were reviewed. There is some ST depression noted on EKG which is new. Patient's troponin is negative this time. Patient does have transaminitis, mild acute pancreatitis related to his alcohol abuse. Patient does have mild acute kidney injury. Patient was given a liter bolus, maintenance fluids. Patient was started on heparin, given aspirin and nitro paste. Disposition Clinical Impression: Pancreatitis, acute, Chest pain, Acute kidney injury, Alcohol abuse Disposition: ADMITTED IP TO THIS HOSP Condition: Fair Referrals: Jeffry Yang DO [Primary Care Provider] - 1-2 days
--- NOTE | 2020-04-12 13:12 | XR ---
EXAMINATION TYPE: XR chest 2V DATE OF EXAM: 04/12/2020 COMPARISON: None INDICATION: Chest pain TECHNIQUE: Frontal and lateral views of the chest are obtained. FINDINGS: The heart size is normal. The pulmonary vasculature is normal. Some mild right lower lobe infiltrate may be present. Correlate for atypical pneumonia, subsegmental atelectasis or early developing pneumonia.. IMPRESSION: 1. Mild right lower lobe infiltrate. Correlate for atypical pneumonia, subsegmental atelectasis or ea rly developing pneumonia.
[2020-04-12 13:20] LABS: Basophils % (A) 1 %; Eosinophils # (A) 0.1 k/uL (0-0.7); Eosinophils % (A) 2 %; HCT 40.9 % (39.0-53.0); HGB 13.2 gm/dL (13.0-17.5); Lymphocytes # (A) 1.4 k/uL (1.0-4.8); Lymphocytes % (A) 20 %; MCH 33.2 pg (25.0-35.0); MCHC 32.2 g/dL (31.0-37.0); Macrocytosis Slight; Mean Platelet Volume 11.8; Monocytes # (A) 0.5 k/uL (0-1.0); Monocytes % (A) 6 %; Neutrophils % (A) 69 %; Platelet Count 205 k/uL (150-450); RBC 3.97 m/uL (4.30-5.90); RDW 13.5 % (11.5-15.5); WBC 7.3 k/uL (3.8-10.6)
[2020-04-12 13:29] LABS: INR 0.9 (<1.2); Partial Thromboplastin Time 22.1 sec (22.0-30.0); Prothrombin Time 9.4 sec (9.0-12.0)
[2020-04-12 13:32] LABS: Albumin 5.5 g/dL (3.5-5.0); Total Bilirubin 1.5 mg/dL (0.2-1.3); Total Protein 9.5 g/dL (6.3-8.2)
[2020-04-12 13:37] LABS: Magnesium 1.9 mg/dL (1.6-2.3); Potassium 4.3 mmol/L (3.5-5.1)
[2020-04-12] MEDS: HEPARIN SOD,PORK IN 0.45% NACL 25,000 UNIT in 0.45% NACL 1 250ML.BAG IV SCH (13:45)
[2020-04-12] MEDS ORDERED: SODIUM CHLORIDE 0.9% 1,000 ML IV ONE ×2 (13:45→14:22)
[2020-04-12 13:53] LABS: Large Platelets Present; Poikilocytosis (M) Present
[2020-04-12] MEDS ORDERED: NITROGLYCERIN SL TABS 0.4 MG TAB SUBLINGUAL PRN (14:02)
[2020-04-12] MEDS: SODIUM CHLORIDE 0.9% 1,000 ML IV SCH (14:16)
[2020-04-12] MEDS ORDERED: fentaNYL (PF) 50 MCG/ML 2 ML AMP IVP STA ×2 (14:19→17:08)
[2020-04-12] MEDS ORDERED: LORazepam 2 MG/ML INJ IV PRN ×3 (14:23)
[2020-04-12] MEDS ORDERED: ONDANSETRON 4 MG/2 ML VIAL IVP PRN (17:08)
[2020-04-12] MEDS: MORPHINE SULFATE 4 MG/ML SYRINGE IVP PRN ×2 (18:32→22:33)
[2020-04-12] MEDS: THIAMINE 100 MG TAB PO SCH (18:33)
[2020-04-12] MEDS: NITROGLYCERIN OINT 1 INCH/GM PACKET TOPICAL SCH (21:38)
[2020-04-13 01:10] LABS: Cholesterol 238 mg/dL (<200); HDL Cholesterol 50 mg/dL (40-60); LDL Cholesterol,Calculated 164 mg/dL (0-99); Triglycerides 122 mg/dL (<150)
[2020-04-13] MEDS: MORPHINE SULFATE 4 MG/ML SYRINGE IVP PRN ×6 (02:43→22:42)
[2020-04-13] MEDS: THIAMINE 100 MG TAB PO SCH (06:29)
[2020-04-13] MEDS: SODIUM CHLORIDE 0.9% 1,000 ML IV SCH ×2 (06:30→17:53)
[2020-04-13] MEDS: NITROGLYCERIN OINT 1 INCH/GM PACKET TOPICAL SCH ×2 (09:04→19:33)
[2020-04-13] MEDS: ASPIRIN 325 MG TAB PO SCH (09:05)
[2020-04-13 09:47] LABS: Albumin 4.3 g/dL (3.5-5.0); Calcium 9.4 mg/dL (8.4-10.2); Total Bilirubin 1.2 mg/dL (0.2-1.3); Total Protein 7.7 g/dL (6.3-8.2)
[2020-04-13 09:50] LABS: Potassium 4.7 mmol/L (3.5-5.1)
--- NOTE | 2020-04-13 11:45 | CONS ---
CONSULTATION CHIEF COMPLAINT: Chest pain. Teo is a 59-year-old gentleman with history of hypertension, EtOH abuse, who presented to hospital complaining of chest pain. He states that for the last few days he has been having intermittent episodes of precordial chest pressure, mild to moderate intensity at rest with some radiation to his back. His admission troponin was normal, subsequent two troponins came back elevated at 0.1 and 0.07. His admission creatinine was high. The troponin this morning came back to normal at 1. The patient at the time of my evaluation is pain-free and hemodynamically stable. His EKG showed sinus rhythm with ST-segment depression suggestive of subendocardial ischemia. His chest x-ray showed mild right lower lobe infiltrate. The COVID is negative. PAST MEDICAL HISTORY: Significant for hypertension. CURRENT MEDICATIONS: Include Prilosec and . ALLERGIES: There are no known drug allergies. FAMILY HISTORY: Negative for premature coronary artery disease. SOCIAL HISTORY: Significant for smoking and ETOH abuse. REVIEW OF SYSTEMS: HEENT: Unremarkable. CARDIAC: As described above. RESPIRATORY: As described above. GI: Negative. GENITOURINARY: Negative. ALLERGY/IMMUNOLOGY: Negative. SKIN: Negative. ENDOCRINE: Negative. ONCOLOGICAL: Negative. DERM: Negative. CONSTITUTIONAL: Negative. SUPERVISOR STRIPPING: Negative. Rest of the system review is not relevant. PHYSICAL EXAMINATION: On exam, patient is afebrile. Heart rate is 50 beats per minute. Blood pressure is 104/60, respiratory rate is 18. There is no jugular venous distention. Carotid upstroke is normal. There is no bruit. Chest exam reveals good air entry bilaterally. Heart exam reveals first and second heart sounds. No gallop. No murmur. No rub. Abdomen is soft, nontender. Exam of extremities did not reveal any edema. Peripheral pulses are felt. LABS: Are as described above. EKG is of abnormal. ASSESSMENT: 1. Acute non ST-segment elevation myocardial infarction. 2. Acute renal insufficiency. PLAN: Will continue to treat the patient with aspirin, heparin and nitroglycerin paste. Give him IV fluids and schedule him for a cardiac catheterization tomorrow morning. Given the 1.5 creatinine, I am going to first hydrate him well. I discussed these issues with the patient. He understands and in agreement with the plan. He is pain free at the moment. If he has episodes of pain, we are going to go ahead and do the cath. IZAIAH / NELLIE: [id number] /
--- NOTE | 2020-04-13 12:01 | ECHOF ---
Referral Reason:mi MEASUREMENTS -------- HEIGHT: 182.9 cm WEIGHT: 82.1 kg BP: 105/64 RVIDd: 3.3 cm (< 3.3) IVSd: 1.3 cm (0.6 - 1.1) LVIDd: 3.9 cm (3.9 - 5.3) LVPWd: 1.2 cm (0.6 - 1.1) IVSs: 1.7 cm LVIDs: 2.5 cm LVPWs: 1.5 cm LA Diam: 3.4 cm (2.7 - 3.8) LAESV Index (A-L): 39.85 ml/m Ao Diam: 3.4 cm (2.0 - 3.7) AV Cusp: 2.5 cm (1.5 - 2.6) MV EXCURSION: 15.944 mm (> 18.000) MV EF SLOPE: 50 mm/s (70 - 150) EPSS: 0.3 cm MV E Benji: 0.80 m/s MV DecT: 259 ms MV A Benji: 0.56 m/s MV E/A Ratio: 1.45 RAP: 5.00 mmHg RVSP: 32.85 mmHg FINDINGS -------- Resting bradycardia (HR<60bpm). This was a technically good study. The left ventricular size is normal. There is mild concentric left ventricular hypertrophy. Overa ll left ventricular systolic function is normal with, an EF between 60 - 65 %. The right ventricle is mildly enlarged. LA is moderately dilated 34-39 ml/m2 The right atrium is normal in size. Aneurysmal Interatrial septum. There is mild aortic valve sclerosis. Mild mitral annular calcification present. There is trace to mild mitral regurgitation. Mild tricuspid regurgitation present. Right ventricular systolic pressure is normal at < 35 mmHg. Trace/mild (physiologic) pulmonic regurgitation. The aortic root size is normal. Normal inferior vena cava with normal inspiratory collapse consistent with estimated right atrial pre ssure of 5 mmHg. There is no pericardial effusion. CONCLUSIONS -------- 1. Resting bradycardia (HR<60bpm). 2. This was a technically good study. 3. The left ventricular size is normal. 4. There is mild concentric left ventricular hypertrophy. 5. Overall left ventricular systolic function is normal with, an EF between 60 - 65 %. 6. The right ventricle is mildly enlarged. 7. LA is moderately dilated 34-39 ml/m2 8. The right atrium is normal in size. 9. Aneurysmal Interatrial septum. 10. There is mild aortic valve sclerosis. 11. Mild mitral annular calcification present. 12. There is trace to mild mitral regurgitation. 13. Mild tricuspid regurgitation present. 14. Right ventricular systolic pressure is normal at < 35 mmHg. 15. Trace/mild (physiologic) pulmonic regurgitation. 16. The aortic root size is normal. 17. Normal inferior vena cava with normal inspiratory collapse consistent with estimated right atrial pressure of 5 mmHg. 18. There is no pericardial effusion. DIRECTOR OF OPTIMIZATION: Rosalee Walters RDCS
--- NOTE | 2020-04-13 13:46 | P.GSCN ---
History of Present Illness Consult date: 04/13/20 Reason for Consult: Acute pancreatitis Requesting physician: Stuart Watson History of present illness: CHIEF COMPLAINT: Acute pancreatitis HISTORY OF PRESENT ILLNESS: 59-year-old male who presented to emergency room with a chief complaint of chest pain and abdominal pain. Patient reports he has been drinking about 1.5 pints of liquor daily for the last 5 months. Patient examined at the bedside with Dr. Colon. Patient currently denies abdominal pain. He denies nausea or vomiting. PAST MEDICAL HISTORY: See list. PAST SURGICAL HISTORY: See list. SOCIAL HISTORY: History of alcohol abuse REVIEW OF SYSTEMS: CONSTITUTIONAL: Denies fever or chills. HEENT: Denies blurred vision, vision changes, or eye pain. Denies hemoptysis CARDIOVASCULAR: Denies chest pain or pressure. RESPIRATORY: No shortness of breath. GASTROINTESTINAL: Refer to HPI for pertinent findings HEMATOLOGIC: Denies bleeding disorders. GENITOURINARY: Denies any blood in urine. SKIN: Denies pruitis. Denies rash. PHYSICAL EXAM: VITAL SIGNS: Reviewed. GENERAL: Well-developed in no acute distress. HEENT: No sclera icterus. Extraocular movements grossly intact. Moist buccal mucosa. Head is atraumatic, normocephalic. ABDOMEN: Soft. Nondistended. Nontender. NEUROLOGIC: Alert and oriented. Cranial nerves II through XII grossly intact. LABORATORY DATA: Lipase 732 on admission. Repeat 411. ASSESSMENT: 1. Acute pancreatitis 2. History of alcohol use PLAN: Patient has been started on a heart healthy diet per cardiology. He is tolerated well at this time. We will continue with current diet. If his pain increases or lipase worsens, will decrease diet to liquids only Monitor labs Continue IV fluids No surgical intervention recommended Nurse practitioner note has been reviewed by physician. Signing provider agrees with the documented findings, assessment, and plan of care. Past Medical History Past Medical History: GERD/Reflux, GI Bleed, Hyperlipidemia, Hypertension, Osteoarthritis (OA) Additional Past Medical History / Comment(s): alcholism , rectal bleed 09/2014, pancreatitis, Cervical disk disease on the neck, gringing History of Any Multi-Drug Resistant Organisms: None Reported Past Surgical History: No Surgical Hx Reported, Cholecystectomy Additional Past Surgical History / Comment(s): MAUREEN FUNDLAPLASTY, EGDs and colonoscopies with benign polypectomies, TOOTH EXTRACTIONS, Past Anesthesia/Blood Transfusion Reactions: No Reported Reaction Additional Past Anesthesia/Blood Transfusion Reaction / Comm: Pt has received blood without reaction. Past Psychological History: No Psychological Hx Reported Additional Psychological History / Comment(s): Pt states he lives alone. He is independent. He uses no assistive device. He drives. Smoking Status: Current some day smoker Past Alcohol Use History: Daily Additional Past Alcohol Use History / Comment(s): STATES SMOKES CIGARS OCCASIONALLY starting in 2009 Past Drug Use History: None Reported - Past Family History Mother Family Medical History: No Reported History Additional Family Medical History / Comment(s): . Father Family Medical History: Diabetes Mellitus, Hypertension Additional Family Medical History / Comment(s): Father at age 84 yrs. Medications and Allergies Home Medications Medication Instructions Recorded Confirmed Type Valsartan/Hydrochlorothiazide 1 tab PO DAILY 11/09/19 04/12/20 History [Diovan Hct 160-12.5 mg Tab] Omeprazole [PriLOSEC] 40 mg PO HS 04/12/20 04/12/20 History Sildenafil Citrate 25 mg PO DIRECTED PRN 04/12/20 04/12/20 History Allergies Allergy/AdvReac Type Severity Reaction Status Date / Time No Known Allergies Allergy Verified 04/12/20 13:59 Surgical - Exam Vital Signs Temp Pulse Resp BP Pulse Ox 97.3 F L 104 H 18 114/77 100 04/12/20 12:25 04/12/20 12:25 04/12/20 12:25 04/12/20 12:25 04/12/20 12:25 Results - Labs 04/12/20 12:50 04/13/20 09:05 Abnormal Lab Results - Last 24 Hours (Table) 04/12/20 04/12/20 04/12/20 Range/Units 12:50 19:45 19:45 RBC 3.97 L (4.30-5.90) m/uL MCV 103.0 H (80.0-100.0) fL APTT 60.6 H (22.0-30.0) sec Chloride (98-107) mmol/L Carbon Dioxide (22-30) mmol/L AST (17-59) U/L ALT (4-49) U/L Troponin I 0.149 H* (0.000-0.034) ng/mL Cholesterol (<200) mg/dL LDL Cholesterol, Calc (0-99) mg/dL Lipase (23-300) U/L 04/13/20 04/13/20 04/13/20 Range/Units 00:45 00:45 09:05 RBC (4.30-5.90) m/uL MCV (80.0-100.0) fL APTT (22.0-30.0) sec Chloride 108 H (98-107) mmol/L Carbon Dioxide 20 L (22-30) mmol/L AST 312 H (17-59) U/L ALT 180 H (4-49) U/L Troponin I 0.075 H* (0.000-0.034) ng/mL Cholesterol 238 H (<200) mg/dL LDL Cholesterol, Calc 164 H (0-99) mg/dL Lipase 411 H (23-300) U/L Diabetes panel 04/13/20 04/13/20 Range/Units 00:45 09:05 Sodium 137 (137-145) mmol/L Potassium 4.7 (3.5-5.1) mmol/L Chloride 108 H (98-107) mmol/L Carbon Dioxide 20 L (22-30) mmol/L BUN 17 (9-20) mg/dL Creatinine 1.08 (0.66-1.25) mg/dL Glucose 85 (74-99) mg/dL Calcium 9.4 (8.4-10.2) mg/dL AST 312 H (17-59) U/L ALT 180 H (4-49) U/L Alkaline Phosphatase 61 (38-126) U/L Total Protein 7.7 (6.3-8.2) g/dL Albumin 4.3 (3.5-5.0) g/dL Triglycerides 122 (<150) mg/dL HDL Cholesterol 50 (40-60) mg/dL Calcium panel 04/13/20 Range/Units 09:05 Calcium 9.4 (8.4-10.2) mg/dL Albumin 4.3 (3.5-5.0) g/dL Pituitary panel 04/13/20 Range/Units 09:05 Sodium 137 (137-145) mmol/L Potassium 4.7 (3.5-5.1) mmol/L Chloride 108 H (98-107) mmol/L Carbon Dioxide 20 L (22-30) mmol/L BUN 17 (9-20) mg/dL Creatinine 1.08 (0.66-1.25) mg/dL Glucose 85 (74-99) mg/dL Calcium 9.4 (8.4-10.2) mg/dL Adrenal panel 04/13/20 Range/Units 09:05 Sodium 137 (137-145) mmol/L Potassium 4.7 (3.5-5.1) mmol/L Chloride 108 H (98-107) mmol/L Carbon Dioxide 20 L (22-30) mmol/L BUN 17 (9-20) mg/dL Creatinine 1.08 (0.66-1.25) mg/dL Glucose 85 (74-99) mg/dL Calcium 9.4 (8.4-10.2) mg/dL Total Bilirubin 1.2 (0.2-1.3) mg/dL AST 312 H (17-59) U/L ALT 180 H (4-49) U/L Alkaline Phosphatase 61 (38-126) U/L Total Protein 7.7 (6.3-8.2) g/dL Albumin 4.3 (3.5-5.0) g/dL
[2020-04-13] MEDS: HEPARIN SOD,PORK IN 0.45% NACL 25,000 UNIT in 0.45% NACL 1 250ML.BAG IV SCH (14:17)
[2020-04-13] MEDS ORDERED: 1: MVI, ADULT NO.4 WITH VIT K 10 ML, THIAMINE 100 MG, FOLIC ACID 1 MG in SODIUM CHLORIDE IV SCH ×14 (17:00→17:15)
[2020-04-13] MEDS ORDERED: [UNRECOGNIZED DRUG - REMARK] IV SCH ×4 (17:13)
[2020-04-13] MEDS: PANTOPRAZOLE 40 MG/10 ML VIAL IVP SCH (17:31)
--- NOTE | 2020-04-13 17:33 | P.HPIM ---
History of Present Illness H&P Date: 04/13/20 Chief Complaint: Chest pain, diffuse of downsloping This is a 59-year-old gentleman with history of alcohol abuse, drinks up to 2 pints of vodka daily, gastroesophageal reflux disease, history of GI bleed, hyperlipidemia, hypertension, osteoarthritis, nicotine dependence and multiple other medical issues presented to the ER with complaints of chest burning,chest pain, diffuse abdominal pain.reports stopped drinking 2 days prior developed shakes.denies nausea or vomiting. reports mid chest pain radiating from right nipple line to left,currently denies chest pain, palpitations or shortness of breath.troponins less than 0.012, 0.149, 0.075. EKG reported normal sinus rhy thm, ST abnormality possible anterior subendocardial injury.Echo completed reporting normal LV function, EF 60-65%. chest x-ray reporting mild right lower lobe infiltrate, possible atypical pneumonia, subsegmental atelectasis or early developing pneumonia.afebrile, normal WBC.lipase 732 on admission now down to 411.BUN 24, creatinine 1.56, improving with IV fluid hydration down to 17, 1.08 respectively.chloride trending up to 108, IV fluids adjusted to 0.45% saline. Review of Systems ROS Statement: Those systems with pertinent positive or pertinent negative responses have been documented in the HPI. ROS Other: All systems not noted in ROS Statement are negative. Past Medical History Past Medical History: GERD/Reflux, GI Bleed, Hyperlipidemia, Hypertension, Osteoarthritis (OA) Additional Past Medical History / Comment(s): alcholism , rectal bleed 09/2014, pancreatitis, Cervical disk disease on the neck, gringing History of Any Multi-Drug Resistant Organisms: None Reported Past Surgical History: No Surgical Hx Reported, Cholecystectomy Additional Past Surgical History / Comment(s): MAUREEN FUNDLAPLASTY, EGDs and colonoscopies with benign polypectomies, TOOTH EXTRACTIONS, Past Anesthesia/Blood Transfusion Reactions: No Reported Reaction Additional Past Anesthesia/Blood Transfusion Reaction / Comment(s): Pt has received blood without reaction. Past Psychological History: No Psychological Hx Reported Additional Psychological History / Comment(s): Pt states he lives alone. He is independent. He uses no assistive device. He drives. Smoking Status: Current some day smoker Past Alcohol Use History: Daily Additional Past Alcohol Use History / Comment(s): STATES SMOKES CIGARS OCCASIONALLY starting in 2009 Past Drug Use History: None Reported - Past Family History Mother Family Medical History: No Reported History Additional Family Medical History / Comment(s): . Father Family Medical History: Diabetes Mellitus, Hypertension Additional Family Medical History / Comment(s): Father at age 84 yrs. Medications and Allergies Home Medications Medication Instructions Recorded Confirmed Type Valsartan/Hydrochlorothiazide 1 tab PO DAILY 11/09/19 04/12/20 History [Diovan Hct 160-12.5 mg Tab] Omeprazole [PriLOSEC] 40 mg PO HS 04/12/20 04/12/20 History Sildenafil Citrate 25 mg PO DIRECTED PRN 04/12/20 04/12/20 History Allergies Allergy/AdvReac Type Severity Reaction Status Date / Time No Known Allergies Allergy Verified 04/12/20 13:59 Physical Exam Vitals: Vital Signs Temp Pulse Pulse Resp BP BP Pulse Ox 04/13/20 15:31 97.7 F 50 L 16 102/61 100 04/13/20 12:00 97.7 F 50 L 16 135/68 98 04/13/20 07:38 97.8 F 50 L 16 105/64 99 04/13/20 03:25 50 L 16 04/13/20 03:23 97.5 F L 50 L 16 115/62 100 04/12/20 23:52 54 L 18 04/12/20 23:50 98.0 F 54 L 18 120/75 100 04/12/20 20:00 98.1 F 52 L 18 133/71 99 04/12/20 18:20 54 L 16 04/12/20 18:16 97.7 F 54 L 16 137/75 100 04/12/20 17:39 98.3 F 60 18 122/89 100 04/12/20 17:00 60 18 122/89 100 Intake and Output 04/13/20 04/13/20 04/13/20 06:59 14:59 22:59 Intake Total 620 480.378 Balance 620 480.378 Intake: IV 20 Invasive Line 1 20 Intake, IV Titration 600 240.378 Amount Heparin Sod,Pork in 0.45% 240.378 NaCl 25,000 unit In 0.45 % NaCl 1 250ml.bag @ 12 UNITS/KG/HR 9.798 mls/hr IV .Q24H [facility] Rx#: [id number] Sodium Chloride 0.9% 1, 600 000 ml @ 100 mls/hr IV . Q10H [facility] Rx#:[id number] Oral 240 Other: Voiding Method Toilet Toilet # Voids 2 0 Weight 82.2 kg VITAL SIGNS: As above GENERAL: Sitting up in bed, no acute distress HEENT: Conjunctivae normal. eyes normal. Oral mucosa dry. NECK: No JVD. No thyroid enlargement. CARDIOVASCULAR: S1, S2 regular. No murmur RESPIRATION: Breath sounds diminished in the bases. No rhonchi or crackles. No bronchial breathing. ABDOMEN: Soft, mildly distended, diffuse tenderness. No guarding. no masses palpable. Bowel sounds heard. LEGS: No edema. no swelling. PSYCHIATRY: Alert and oriented X3, mood and affect normal. NERVOUS SYSTEM: Cranial N 2-12 grossly normal. Moves all 4 limbs. No focal deficits. Strength and sensation grossly intact.. Skin: no rash, normal skin turgor. Results CBC & Chem 7: 04/12/20 12:50 04/13/20 09:05 Labs: Abnormal Lab Results - Last 24 Hours (Table) 04/12/20 04/12/20 04/13/20 Range/Units 19:45 19:45 00:45 APTT 60.6 H (22.0-30.0) sec Chloride (98-107) mmol/L Carbon Dioxide (22-30) mmol/L AST (17-59) U/L ALT (4-49) U/L Troponin I 0.149 H* 0.075 H* (0.000-0.034) ng/mL Cholesterol (<200) mg/dL LDL Cholesterol, Calc (0-99) mg/dL Lipase (23-300) U/L 04/13/20 04/13/20 Range/Units 00:45 09:05 APTT (22.0-30.0) sec Chloride 108 H (98-107) mmol/L Carbon Dioxide 20 L (22-30) mmol/L AST 312 H (17-59) U/L ALT 180 H (4-49) U/L Troponin I (0.000-0.034) ng/mL Cholesterol 238 H (<200) mg/dL LDL Cholesterol, Calc 164 H (0-99) mg/dL Lipase 411 H (23-300) U/L Thrombosis Risk Factor Assmnt - Choose All That Apply Any of the Below Risk Factors Present?: Yes Each Factor Represents 1 point: Age 41-60 years Other Risk Factors: No Thrombosis Risk Factor Assessment Total Risk Factor Score: 1 Thrombosis Risk Factor Assessment Level: Low Risk Assessment and Plan Assessment: -Acute NSTEMI -alcohol abuse, with possible withdrawal -possible right lower lobe infiltrate, possible atypical pneumonia -acute on possibly chronic renal failure, stage III -Possible acute on chronic pancreatitis,lipase though only 732 on admission -Increased bilirubin with LFTs, possibly alcoholic hepatitis. -Alcohol dependence, drinks up to 2 pints of vodka daily -Hyperchloremia -Nicotine dependence -History of GI bleed -Hypertension -Hyperlipidemia -Cervical degenerative joint disease -History of Cal Fundoplasty, laparoscopic cholecystectomy. -Coronavirus not detected. Plan: Continue on current medication regime ,monitoring and symptomatic treatment. maintain CIWA protocol.gentle IV fluid hydration 0.45% Saline ,with one banana bag daily. Evaluated by cardiology and scheduled for cardiac catheterization tomorrow. continue on heparin drip. Evaluated by surgery, recommendations noted. All meds have been reviewed and resumed accordingly. close monitoring of LFTs, lipase with repeat labs ordered for a.m. Alcohol, nicotine cessation reinforced. The impression and plan of care has been dictated as directed. : I performed a history and examination of this patient, discussed the same with the dictator. I agree with the dictator's note ,documented as a scribe. Any additional findings or plans will be noted.
[2020-04-13] MEDS: 1: MVI, ADULT NO.4 WITH VIT K 10 ML, THIAMINE 100 MG, FOLIC ACID 1 MG in SODIUM CHLORIDE IV SCH (17:50)
[2020-04-14] MEDS: 1: MVI, ADULT NO.4 WITH VIT K 10 ML, THIAMINE 100 MG, FOLIC ACID 1 MG in SODIUM CHLORIDE IV SCH ×2 (02:14→20:51)
[2020-04-14] MEDS: MORPHINE SULFATE 4 MG/ML SYRINGE IVP PRN ×5 (02:50→23:57)
[2020-04-14] MEDS: ASPIRIN 325 MG TAB PO SCH (05:40)
[2020-04-14] MEDS: PANTOPRAZOLE 40 MG/10 ML VIAL IVP SCH (08:04)
[2020-04-14] MEDS: NITROGLYCERIN OINT 1 INCH/GM PACKET TOPICAL SCH (08:05)
[2020-04-14 08:10] LABS: ALT 268 U/L (4-49); AST 391 U/L (17-59); African American GFR (CKD) >90 (>60 ml/min/1.73 sqM); Albumin 3.8 g/dL (3.5-5.0); Alkaline Phosphatase 112 U/L (38-126); Anion Gap 8 mmol/L; Blood Urea Nitrogen 10 mg/dL (9-20); Calcium 9.3 mg/dL (8.4-10.2); Carbon Dioxide 24 mmol/L (22-30); Chloride 106 mmol/L (98-107); Glucose 91 mg/dL (74-99); Non-African American GFR(CKD) 82 (>60 ml/min/1.73 sqM); Potassium 4.2 mmol/L (3.5-5.1); Sodium 138 mmol/L (137-145); Total Bilirubin 0.7 mg/dL (0.2-1.3)
[2020-04-14] MEDS ORDERED: ATORVASTATIN 80 MG TAB PO STA (09:37)
[2020-04-14] MEDS ORDERED: SODIUM CHLORIDE 0.9% 1,000 ML in EMPTY BAG 1 BAG IV ONE (09:37)
[2020-04-14] MEDS ORDERED: ASPIRIN 325 MG TAB PO STA (09:37)
[2020-04-14] MEDS ORDERED: NITROGLYCERIN SL TABS 0.4 MG TAB SUBLINGUAL PRN (09:37)
[2020-04-14] MEDS ORDERED: ALPRAZolam 0.5 MG TAB PO PRN (09:37)
[2020-04-14] MEDS ORDERED: ALPRAZolam 0.25 MG TAB PO PRN (09:37)
--- NOTE | 2020-04-14 11:50 | P.PN ---
Subjective Progress Note Date: 04/14/20 This is a 59-year-old gentleman with history of alcohol abuse, drinks up to 2 pints of vodka daily, gastroesophageal reflux disease, history of GI bleed, hyperlipidemia, hypertension, osteoarthritis, nicotine dependence and multiple other medical issues presented to the ER with complaints of chest burning,chest pain, diffuse abdominal pain.reports stopped drinking 2 days prior developed shakes.denies nausea or vomiting. reports mid chest pain radiating from right nipple line to left,currently denies chest pain, palpitations or shortness of breath.troponins less than 0.012, 0.149, 0.075. EKG reported normal sinus rhythm, ST abnormality possible anterior subendocardial injury.Echo completed reporting normal LV function, EF 60-65%. chest x-ray reporting mild right lower lobe infiltrate, possible atypical pneumonia, subsegmental atelectasis or early developing pneumonia.afebrile, normal WBC.lipase 732 on admission now down to 411.BUN 24, creatinine 1.56, improving with IV fluid hydration down to 17, 1.08 respectively.chloride trending up to 108, IV fluids adjusted to 0.45% saline. 04/14/20 cardiac catheterization pending. Currently denies chest pain, palpitations or increased shortness of breath. No DTs, no shakes. AST, ALT remain elevated at 391, 268. Lipase continued to trend down currently 315. IV fluids adjusted with chloride trending down. Minimal diffuse abdominal tenderness. Afebrile. Objective - Vital Signs Vital signs: Vital Signs Temp 98.3 F 04/14/20 07:55 Pulse 59 L 04/14/20 07:55 Resp 18 04/14/20 07:55 BP 115/71 04/14/20 07:55 Pulse Ox 98 04/14/20 07:55 Intake & Output 04/13/20 04/14/20 04/14/20 18:59 06:59 18:59 Intake Total 031.525 9320.645 Balance 075.300 1808.645 Weight 81.8 kg Intake: IV 20 Invasive Line 1 20 Intake, IV Titration 343.185 0058.645 Amount Heparin Sod,Pork in 0.45% 240.378 57.645 NaCl 25,000 unit In 0.45 % NaCl 1 250ml.bag @ 12 UNITS/KG/HR 9.798 mls/hr IV .Q24H [facility] Rx#: [id number] Mvi, Adult No.4 with Vit 800 K 10 ml Thiamine 100 mg Folic Acid 1 mg In Sodium Chloride 0.45 % 1,000 ml @ 100 mls/hr IV .BY DURATION [facility] Rx#: [id number] Mvi, Adult No.4 with Vit 800 K 10 ml Thiamine 100 mg Folic Acid 1 mg In Sodium Chloride 0.9% 1,000 ml @ 100 mls/hr IV .BY DURATION [facility] Rx#: [id number] Oral 360 Other: Voiding Method Toilet Toilet # Voids 0 2 1 - Exam VITAL SIGNS: As above GENERAL: Sitting up in bed, no acute distress HEENT: Conjunctivae normal. eyes normal. Oral mucosa dry. NECK: No JVD. No thyroid enlargement. CARDIOVASCULAR: S1, S2 regular. No murmur RESPIRATION: Bilateral bases diminished. No rhonchi or crackles. No wheezing. ABDOMEN: Soft, minimally distended, diffuse tenderness. No guarding. no masses palpable. Positive Bowel sounds. LEGS: No edema. no swelling. PSYCHIATRY: Alert and oriented X3, mood and affect normal. NERVOUS SYSTEM: Cranial N 2-12 grossly normal. Moves all 4 limbs. No focal deficits. Strength and sensation grossly intact.. Skin: no rash, normal skin turgor. - Labs CBC & Chem 7: 04/12/20 12:50 04/14/20 06:17 Labs: Abnormal Lab Results - Last 24 Hours (Table) 04/13/20 04/13/20 04/14/20 Range/Units 09:05 19:14 01:53 APTT 34.8 H 46.2 H (22.0-30.0) sec Chloride 108 H (98-107) mmol/L Carbon Dioxide 20 L (22-30) mmol/L AST 312 H (17-59) U/L ALT 180 H (4-49) U/L Lipase 411 H (23-300) U/L 04/14/20 04/14/20 Range/Units 06:17 06:17 APTT 49.3 H (22.0-30.0) sec Chloride (98-107) mmol/L Carbon Dioxide (22-30) mmol/L AST 391 H (17-59) U/L ALT 268 H (4-49) U/L Lipase 315 H (23-300) U/L Assessment and Plan Assessment: -Acute NSTEMI -alcohol abuse, with possible withdrawal -possible right lower lobe infiltrate, possible atypical pneumonia -acute on possibly chronic renal failure, stage III -Possible acute on chronic pancreatitis,lipase though only 732 on admission -Increased bilirubin with LFTs, possibly alcoholic hepatitis. -Alcohol dependence, drinks up to 2 pints of vodka daily -Hyperchloremia -Nicotine dependence -History of GI bleed -Hypertension -Hyperlipidemia -Cervical degenerative joint disease -History of Cal Fundoplasty, laparoscopic cholecystectomy. -Coronavirus not detected. Plan: Continue on current medication regime ,monitoring and symptomatic treatment. Anticoagulated on heparin drip. Cardiac catheterization pending . Continue CIWA protocol. IV fluid hydration. Close monitoring of LFTs, with repeat labs ordered for a.m. Alcohol, nicotine cessation reinforced. The impression and plan of care has been dictated as directed. : I performed a history and examination of this patient, discussed the same with the dictator. I agree with the dictator's note ,documented as a scribe. Any additional findings or plans will be noted.
[2020-04-14] MEDS ORDERED: LIDOCAINE 1% INJ 10MG/ML (20 ML MDV) ONE (12:24)
[2020-04-14] MEDS ORDERED: fentaNYL (PF) 50 MCG/ML 2 ML AMP ONE (12:24)
[2020-04-14] MEDS ORDERED: IV FLUID CONTINUATION 1,000 ML IV ONE (12:45)
[2020-04-14] MEDS: fentaNYL (PF) 50 MCG/ML 2 ML AMP IV ONE ×2 (12:58→13:36)
[2020-04-14] MEDS ORDERED: LIDOCAINE 1% INJ 10MG/ML (10 ML MDV) IV ONE (12:58)
[2020-04-14] MEDS: MIDAZOLAM 2 MG/2 ML VIAL IV ONE ×2 (12:58→13:31)
[2020-04-14] MEDS ORDERED: BIVALIRUDIN BOLUS 250 MG/50 ML IV ONE (13:15)
[2020-04-14] MEDS ORDERED: BIVALIRUDIN 250 MG in SODIUM CHLORIDE 0.9% 50 ML IV ONE (13:19)
--- NOTE | 2020-04-14 13:31 | P.PN ---
Subjective Progress Note Date: 04/14/20 CHIEF COMPLAINT: Acute pancreatitis HISTORY OF PRESENT ILLNESS: Patient examined at the bedside with Dr. Melchor. Patient continues to report some right upper quadrant abdominal pain. He is currently nothing by mouth and scheduled for cardiac catheterization. Lipase improved to 315 today. PHYSICAL EXAM: VITAL SIGNS: Reviewed. GENERAL: Well-developed in no acute distress. HEENT: No sclera icterus. Extraocular movements grossly intact. Moist buccal mucosa. Head is atraumatic, normocephalic. ABDOMEN: Soft. Nondistended. Nontender. NEUROLOGIC: Alert and oriented. Cranial nerves II through XII grossly intact. ASSESSMENT: 1. Acute pancreatitis 2. History of alcohol use PLAN: Patient scheduled for cardiac catheterization today. He is currently nothing by mouth. May resume diet post cath. Monitor labs Continue IV fluids No surgical intervention recommended Nurse practitioner note has been reviewed by physician. Signing provider agrees with the documented findings, assessment, and plan of care. Objective - Vital Signs Vital signs: Vital Signs Temp 97.6 F 04/14/20 11:42 Pulse 51 L 04/14/20 11:42 Resp 16 04/14/20 11:42 BP 123/72 04/14/20 11:42 Pulse Ox 100 04/14/20 11:42 Intake & Output 04/13/20 04/14/20 04/14/20 18:59 06:59 18:59 Intake Total 272.856 0860.645 173.091 Balance 798.071 7095.645 173.091 Weight 81.8 kg Intake: IV 20 Invasive Line 1 20 Intake, IV Titration 192.195 6732.645 173.091 Amount Heparin Sod,Pork in 0.45% 240.378 57.645 173.091 NaCl 25,000 unit In 0.45 % NaCl 1 250ml.bag @ 12 UNITS/KG/HR 9.798 mls/hr IV .Q24H [facility] Rx#: [id number] Mvi, Adult No.4 with Vit 800 K 10 ml Thiamine 100 mg Folic Acid 1 mg In Sodium Chloride 0.45 % 1,000 ml @ 100 mls/hr IV .BY DURATION [facility] Rx#: [id number] Mvi, Adult No.4 with Vit 800 K 10 ml Thiamine 100 mg Folic Acid 1 mg In Sodium Chloride 0.9% 1,000 ml @ 100 mls/hr IV .BY DURATION [facility] Rx#: [id number] Oral 360 Other: Voiding Method Toilet Toilet Toilet # Voids 0 2 1 - Labs CBC & Chem 7: 04/12/20 12:50 04/14/20 06:17 Labs: Abnormal Lab Results - Last 24 Hours (Table) 04/13/20 04/14/20 04/14/20 Range/Units 19:14 01:53 06:17 APTT 34.8 H 46.2 H (22.0-30.0) sec AST 391 H (17-59) U/L ALT 268 H (4-49) U/L Lipase 315 H (23-300) U/L 04/14/20 Range/Units 06:17 APTT 49.3 H (22.0-30.0) sec AST (17-59) U/L ALT (4-49) U/L Lipase (23-300) U/L
[2020-04-14] MEDS: NITROGLYCERIN 1000MCG/10ML SYRINGE INTRACORON ONE ×3 (13:33→13:50)
[2020-04-14] MEDS ORDERED: TICAGRELOR 90 MG TAB ONE (13:41)
[2020-04-14] MEDS ORDERED: TICAGRELOR 90 MG TAB PO ONE (13:44)
[2020-04-14] MEDS ORDERED: IOPAMIDOL-370 125ML BTL INJ ONE (13:45)
[2020-04-14] MEDS ORDERED: niCARdipine Syringe (1,000 mcg/10 mL) INTRACORON ONE (14:12)
[2020-04-14] MEDS ORDERED: NITROGLYCERIN 1000MCG/10ML SYRINGE INTRACORON ONE (14:12)
[2020-04-14] MEDS ORDERED: IOPAMIDOL-370 100ML BTL INJ ONE (14:12)
[2020-04-14] MEDS ORDERED: SILDENAFIL CITRATE 25 MG PO PRN (14:21)
[2020-04-14] MEDS ORDERED: RX INFO: IV CONTRAST WAS GIVEN 1 EACH MISC MISCELLANE PRN (14:28)
[2020-04-14] MEDS ORDERED: MAG HYDROX/AL HYDROX/SIMETH 30 ML CUP PO PRN (14:28)
[2020-04-14] MEDS ORDERED: ATROPINE SULFATE 0.1 MG/ML 10ML SYRINGE IV PRN (14:28)
[2020-04-14] MEDS ORDERED: ZOLPIDEM 5 MG TAB PO PRN (14:28)
[2020-04-14] MEDS ORDERED: SODIUM CHLORIDE 0.9% 1,000 ML IV SCH (14:30)
[2020-04-14] MEDS: HEPARIN SOD,PORK IN 0.45% NACL 25,000 UNIT in 0.45% NACL 1 250ML.BAG IV SCH (15:25)
[2020-04-14] MEDS: TICAGRELOR 90 MG TAB PO SCH (20:12)
--- NOTE | 2020-04-14 20:27 | CC ---
CARDIAC CATHETERIZATION REPORT REFERRING PHYSICIAN: Dr. Yang. INDICATION: Acute non ST-segment elevation ME. PROCEDURE NOTE: After obtaining informed consent, left heart catheterization and coronary angiogram are performed via the right femoral artery using standard Janeth catheters. The patient tolerated the procedure well without any obvious immediate complications. The patient underwent a femoral angiogram and Angio-Seal will be deployed. The patient received moderate conscious sedation. Total sedation time was 8 minutes. FINDINGS: HEMODYNAMICS: Left ventricular end-diastolic pressure is 12-14 mm. There is no significant gradient across the aortic valve. LEFT VENTRICULOGRAM: Is not performed. ANGIOGRAPHIC DATA: LEFT MAIN CORONARY ARTERY: Left main coronary artery is a normal-sized vessel and is free of stenosis. Divides into left anterior descending coronary artery and circumflex coronary artery. LEFT ANTERIOR DESCENDING CORONARY ARTERY: LAD shows a focal 90% stenosis in the mid LAD. CIRCUMFLEX CORONARY ARTERY: Circumflex coronary artery and its branches are free of significant stenosis. RIGHT CORONARY ARTERY: Right coronary artery shows a focal 80% stenosis in the mid RCA. The left and the right coronary artery calcified. CONCLUSION: Severe 2 vessel coronary artery disease as described above. PLAN: Patient will undergo angioplasty with stent placement of both these vessels. MMODL / IJN: [id number] /
--- NOTE | 2020-04-14 20:31 | LTR ---
DATE OF SERVICE: 04/14/[address] Yang: I performed cardiac catheterization on Teo Fernandez. A detailed cardiac catheterization note is enclosed for your records. In brief, the cardiac catheterization revealed severe 2 vessel coronary artery disease and patient will undergo angioplasty with stent placement of the same. Thank you for giving us the privilege to participate in the care of this pleasant gentleman. Sincerely, MMCINDY / MAGON: [id number] /
[2020-04-14] MEDS ORDERED: PANTOPRAZOLE 40 MG TABLET PO SCH (21:00)
[2020-04-14] MEDS ORDERED: ATORVASTATIN 80 MG TAB PO SCH (21:00)
--- NOTE | 2020-04-15 00:55 | PTCA ---
PERCUTANEOUSTRANS CORORONARY ANGIOGRAPHY DATE OF SERVICE: April 14, 2020. PERFORMING PHYSICIAN: Kedar Ayala MD. PROCEDURE PERFORMED: 1. Successful stenting of the mid left anterior descending artery using 2.5 x 12 mm Xience NICOLASA which was postdilated using 3.0 mm balloon with excellent angiographic results and reduction of stenosis from 99% to 0%. 2. Successful stenting of the mid right coronary artery using 2.5 x 12 mm Xience NICOLASA with angiographic results and reduction of stenosis from 90% to 0%. INDICATION: This is a very pleasant 59-year-old gentleman with hypertension and dyslipidemia who was admitted to the hospital with chest discomfort. He underwent a heart catheterization by Dr. Begum and that revealed critical 2-vessel coronary artery disease involving the mid LAD as well as mid RCA. The decision was made toward percutaneous coronary intervention. APPROACH: Right common femoral artery. COMPLICATION: None. LEVEL OF SEDATION: Moderate with sedation length of 15 minutes. PROCEDURE DESCRIPTION: Please refer to the diagnostic heart catheterization that was performed by Dr. Begum earlier today. Anticoagulation was initiated using Angiomax with bolus and drip per protocol. Subsequently I did engage the left main coronary artery using an XP35 LAD guide. I did wire the LAD using a Whisper J wire and the wire was advanced all the way to the distal LAD. I did use a 2.0 x 12 mm over the wire balloon to support the wire and cross the lesion. Subsequently, I did PTCA ballooning of the mid LAD using the over the wire 2.0 x 12 mm balloon which was inflated under 14 atmospheres for 20 seconds. Subsequently I did wire the LAD with another wire as a bhumika wire and that was a run-through just because the LAD proximal to the lesion was extremely calcified and tortuous. Attempting advancing 2.5 x 12 mm Xience NICOLASA over the run-through wire was unsuccessful but was successful over the Whisper wire. The stent was positioned under fluoroscopy guidance and then deployed under 16 atmospheres for 20 seconds after the bhumika wire was pulled out. After that I did postdilatation of the stent using 3.0 x 8 mm NC balloon which was inflated under 16 and 18 atmospheres for 20 seconds. The following angiogram showed excellent angiographic results on the LAD. To do a PCI on the right coronary artery initially I engaged the right coronary artery using an Amplatzer an AL1 guiding catheter. Subsequently, the guiding catheter was diving in and because of that, I pulled it out and I did engage the RCA using an AR1 catheter. Subsequently I did wire the RCA using initially a Whisper J wire and subsequently a run-through wire. After that I did PTCA ballooning of the right coronary artery using 2.5 x 12 mm balloon before I deployed 2.5 x 12 mm Xience NICOLASA where the stent was positioned under fluoroscopy guidance and deployed under about 14 atmospheres for 20 seconds after the bhumika wire was pulled out. The following angiogram showed excellent angiographic results and the procedure was completed without any complication. POSTPROCEDURE MANAGEMENT: 1. Dual anti-platelet therapy. 2. Risk factors modifications. 3. Follow up with the patient. MMODL / IJN: [id number] /
[2020-04-15 08:06] VITALS: RESP 16
[2020-04-15] MEDS: TICAGRELOR 90 MG TAB PO SCH (08:18)
[2020-04-15] MEDS: MORPHINE SULFATE 4 MG/ML SYRINGE IVP PRN (08:23)
[2020-04-15 08:32] LABS: Basophils % (A) 0 %; Eosinophils # (A) 0.2 k/uL (0-0.7); Eosinophils % (A) 4 %; HGB 11.5 gm/dL (13.0-17.5); Lymphocytes # (A) 0.7 k/uL (1.0-4.8); Lymphocytes % (A) 13 %; MCH 34.7 pg (25.0-35.0); MCHC 32.8 g/dL (31.0-37.0); MCV 105.7 fL (80.0-100.0); Macrocytosis Moderate; Mean Platelet Volume 12.8; Monocytes # (A) 0.3 k/uL (0-1.0); Monocytes % (A) 6 %; Neutrophils # (A) 3.8 k/uL (1.3-7.7); Neutrophils % (A) 75 %; Platelet Count 159 k/uL (150-450); RBC 3.31 m/uL (4.30-5.90); RDW 13.3 % (11.5-15.5); WBC 5.1 k/uL (3.8-10.6)
[2020-04-15 08:45] LABS: Calcium 9.8 mg/dL (8.4-10.2); Potassium 3.9 mmol/L (3.5-5.1); Total Bilirubin 0.7 mg/dL (0.2-1.3); Total Protein 7.3 g/dL (6.3-8.2)
[2020-04-15] MEDS ORDERED: ASPIRIN 81 MG PO SCH (09:00)
[2020-04-15] MEDS ORDERED: HYDROCHLOROTHIAZIDE 12.5 MG CAP PO SCH (09:00)
[2020-04-15] MEDS ORDERED: PANTOPRAZOLE 40 MG TABLET PO SCH (09:00)
[2020-04-15] MEDS ORDERED: VALSARTAN 160 MG TAB PO SCH (09:00)
--- NOTE | 2020-04-15 10:10 | P.DS ---
Providers Date of admission: 04/13/20 11:56 Expected date of discharge: 04/15/20 Attending physician: Jeffry Yang Consults: 04/12/20 14:02 Consult Physician Urgent Consulting Provider: Kedar Ayala Consult Reason/Comments: chest pain Do you want consulting provider notified?: Yes 04/12/20 14:44 Consult Physician Urgent Consulting Provider: Noam Melchor Consult Reason/Comments: Acute pancreatitis Do you want consulting provider notified?: Yes 04/14/20 14:28 Consult Physician Routine Consulting Provider: [facility] Consult Reason/Comments: Post Interventional patient Do you want consulting provider notified?: Already Contacted Primary care physician: Jeffry Yang [facility] Course: Final Diagnoses, -Acute NSTEMI, status post cardiac catheterization with successful stenting of the mid LAD and mid RCA -alcohol abuse, with possible withdrawal, no DTs -possible right lower lobe infiltrate, possible atypical pneumonia, suspect subsegmental atelectasis. Empiric antibiotics. -acute on possibly chronic renal failure, stage III -Possible acute on chronic pancreatitis,lipase though only 732 on admission -Increased bilirubin with LFTs, possibly alcoholic hepatitis. -Alcohol dependence, drinks up to 2 pints of vodka daily -Hyperchloremia -Nicotine dependence -History of GI bleed -Hypertension -Hyperlipidemia -Cervical degenerative joint disease -History of Cal Fundoplasty, laparoscopic cholecystectomy. -Coronavirus not detected. Hospital course:This is a 59-year-old gentleman with history of alcohol abuse, drinks up to 2 pints of vodka daily, gastroesophageal reflux disease, history of GI bleed, hyperlipidemia, hypertension, osteoarthritis, nicotine dependence and multiple other medical issues presented to the ER with complaints of chest burning,chest pain, diffuse abdominal pain.reports stopped drinking 2 days prior developed shakes.denies nausea or vomiting. reports mid chest pain radiating from right nipple line to left,currently denies chest pain, palpitations or shortness of breath.troponins less than 0.012, 0.149, 0.075. EKG reported normal sinus rhythm, ST abnormality possible anterior subendocardial injury.Echo completed reporting normal LV function, EF 60-65%. chest x-ray reporting mild right lower lobe infiltrate, possible atypical pneumonia, subsegmental atelectasis or early developing pneumonia.afebrile, normal WBC.lipase 732 on admission now down to 411.BUN 24, creatinine 1.56, improving with IV fluid hydration down to 17, 1.08 respectively.chloride trending up to 108, IV fluids adjusted to 0.45% saline. 04/14/20 cardiac catheterization pending. Currently denies chest pain, palpitations or increased shortness of breath. No DTs, no shakes. AST, ALT remain elevated at 391, 268. Lipase continued to trend down currently 315. IV fluids adjusted with chloride trending down. Minimal diffuse abdominal tenderness. Afebrile. Completed cardiac catheterization reporting 2 vessel CAD involving mid LAD and mid RCA, and proceeded with percutaneous coronary intervention. Successful stenting of the mid LAD and mid RCA. Significant clinical improvement. Patient is being discharged home in a stable condition with guarded prognosis pending final DC recommendations and clearance from cardiology. Alcohol cessation reinforced. The impression and plan of care has been dictated as directed. : I performed a history and examination of this patient, discussed the same with the dictator. I agree with the dictator's note ,documented as a scribe. Any additional findings or plans will be noted. Patient Condition at Discharge: Stable Plan - Discharge Summary Discharge Rx Participant: No New Discharge Prescriptions: New Aspirin 81 mg PO DAILY #30 chew Ticagrelor [Brilinta] 90 mg PO BID #60 tab Cefuroxime Axetil [Ceftin] 500 mg PO BID 3 Days #6 tab Atorvastatin [Lipitor] 80 mg PO HS #30 tab Nitroglycerin Sl Tabs [Nitrostat] 0.4 mg SUBLINGUAL Q5M PRN #100 tab PRN Reason: Chest Pain Folic Acid 1 mg PO DAILY #30 tablet Thiamine [Vitamin B-1] 100 mg PO DAILY #30 tablet traMADol HCL [Ultram] 50 mg PO Q6HR PRN 3 Days #12 tab PRN Reason: Pain Continue Valsartan/Hydrochlorothiazide [Diovan Hct 160-12.5 mg Tab] 1 tab PO DAILY Omeprazole [PriLOSEC] 40 mg PO HS Discontinued Sildenafil Citrate 25 mg PO DIRECTED PRN PRN Reason: E.D. Discharge Medication List Valsartan/Hydrochlorothiazide [Diovan Hct 160-12.5 mg Tab] 1 tab PO DAILY 11/09/19 [History] Omeprazole [PriLOSEC] 40 mg PO HS 04/12/20 [History] Aspirin 81 mg PO DAILY #30 chew 04/15/20 [Rx] Atorvastatin [Lipitor] 80 mg PO HS #30 tab 04/15/20 [Rx] Cefuroxime Axetil [Ceftin] 500 mg PO BID 3 Days #6 tab 04/15/20 [Rx] Folic Acid 1 mg PO DAILY #30 tablet 04/15/20 [Rx] Nitroglycerin Sl Tabs [Nitrostat] 0.4 mg SUBLINGUAL Q5M PRN #100 tab 04/15/20 [Rx] Thiamine [Vitamin B-1] 100 mg PO DAILY #30 tablet 04/15/20 [Rx] Ticagrelor [Brilinta] 90 mg PO BID #60 tab 04/15/20 [Rx] traMADol HCL [Ultram] 50 mg PO Q6HR PRN 3 Days #12 tab 04/15/20 [Rx] Follow up Appointment(s)/Referral(s): Jeffry Yang DO [Primary Care Provider] - 3 Days Activity/Diet/Wound Care/Special Instructions: Confirm cardiology final DC recommendations and clearance
[2020-04-15 10:50] VITALS: BMI 24.5
[2020-04-15 11:02] VITALS: BP 122/76; PULSE 45; TEMP 98.3
--- NOTE | 2020-04-15 11:46 | P.PN ---
Subjective Progress Note Date: 04/15/20 CHIEF COMPLAINT: Acute pancreatitis HISTORY OF PRESENT ILLNESS: Patient examined at the bedside with Dr. Melchor. Patient denies abdominal pain. Tolerating diet without nausea or vomiting. Lipase is improving. PHYSICAL EXAM: VITAL SIGNS: Reviewed. GENERAL: Well-developed in no acute distress. HEENT: No sclera icterus. Extraocular movements grossly intact. Moist buccal mucosa. Head is atraumatic, normocephalic. ABDOMEN: Soft. Nondistended. Nontender. NEUROLOGIC: Alert and oriented. Cranial nerves II through XII grossly intact. ASSESSMENT: 1. Acute pancreatitis 2. History of alcohol use PLAN: Continue diet as tolerated Monitor labs No surgical intervention recommended Stable for discharge home today from a surgical standpoint. Nurse practitioner note has been reviewed by physician. Signing provider agrees with the documented findings, assessment, and plan of care. Objective - Vital Signs Vital signs: Vital Signs Temp 98.3 F 04/15/20 11:02 Pulse 45 L 04/15/20 11:02 Resp 16 04/15/20 11:02 BP 122/76 04/15/20 11:02 Pulse Ox 99 04/15/20 11:02 Intake & Output 04/14/20 04/15/20 04/15/20 18:59 06:59 18:59 Intake Total 867.532 3020 Output Total 600 500 Balance 18.091 500 Weight 82.2 kg 82.2 kg Intake: IV 445 Sodium Chloride 0.9% 1, 160 000 ml @ 100 mls/hr IV . BY DURATION [facility] Rx#: [id number] cefTRIAXone 1 gm In 100 Sodium Chloride 0.9% 50 ml @ 100 mls/hr IVPB Q24HR [facility] Rx#:[id number] Intake, IV Titration 675.264 8820 Amount Heparin Sod,Pork in 0.45% 173.091 NaCl 25,000 unit In 0.45 % NaCl 1 250ml.bag @ 12 UNITS/KG/HR 9.798 mls/hr IV .Q24H [facility] Rx#: [id number] Sodium Chloride 0.9% 1, 1000 000 ml @ 75 mls/hr IV . [id number] [facility] Rx#:[id number] Output: Urine 600 500 Other: Voiding Method Urinal Urinal Toilet # Voids 1 1 - Labs CBC & Chem 7: 04/15/20 08:08 04/15/20 08:08 Labs: Abnormal Lab Results - Last 24 Hours (Table) 04/15/20 04/15/20 Range/Units 08:08 08:08 RBC 3.31 L (4.30-5.90) m/uL Hgb 11.5 L (13.0-17.5) gm/dL Hct 35.0 L (39.0-53.0) % MCV 105.7 H (80.0-100.0) fL Carbon Dioxide 20 L (22-30) mmol/L BUN 8 L (9-20) mg/dL AST 160 H (17-59) U/L ALT 195 H (4-49) U/L
--- NOTE | 2020-04-15 14:50 | PN ---
PROGRESS NOTE Teo is a 59-year-old gentleman who is admitted to hospital with non ST-segment elevation PA and underwent cardiac catheterization and angioplasty of LAD and right coronary artery. This morning, he is doing well and is free of symptoms. PHYSICAL EXAM: Comfortable at rest. Vital signs are stable. There is no jugular venous distention. Chest exam reveals good air entry bilaterally. Heart exam reveals first and second heart sounds. No gallop. Exam of extremities did not reveal any edema. Groin is free of bleeding, bruit, hematoma. Foot pulses are intact. LABS: Show that the hemoglobin is 11.5. Potassium is 3.9, creatinine is 1. Liver enzymes are elevated. ASSESSMENT: 1. Acute non ST-segment elevation myocardial infarction, status post catheterization and multivessel angioplasty. 2. Hypertension. 3. Dyslipidemia. PLAN: The patient will be discharged home on aspirin, Brilinta, Diovan, Lipitor and aspirin. He has a significant history of ETOH abuse. He was advised to quit drinking. MMODL / IJN: [id number] /
== END 2020-04-15 14:42 | disposition home or self-care (01) | DRG 246 ==
LOC: EC 12:25 → 3SCARD 15:00 → OBSVTOIN 04-13 11:56
PROVIDERS: ADMIT Family Medicine; ATTEND Family Medicine
PROC: 027135Z Dilation of Coronary Artery, Two Arteries with Two Drug-eluting Intraluminal Devices, Percutaneous Approach (ICD-10-PCS; principal; 2020-04-14 15:00)
PROC: 4A023N7 Measurement of Cardiac Sampling and Pressure, Left Heart, Percutaneous Approach (ICD-10-PCS; 2020-04-14 15:00)
PROC: B2111ZZ Fluoroscopy of Multiple Coronary Arteries using Low Osmolar Contrast (ICD-10-PCS; 2020-04-14 15:00)
DX: I21.4 Non-ST elevation (NSTEMI) myocardial infarction (principal); K85.90 Acute pancreatitis without necrosis or infection, unspecified; J18.9 Pneumonia, unspecified organism; F10.239 Alcohol dependence with withdrawal, unspecified; N17.9 Acute kidney failure, unspecified; K86.1 Other chronic pancreatitis; J98.11 Atelectasis; E87.8 Other disorders of electrolyte and fluid balance, not elsewhere classified; N18.3 Chronic kidney disease, stage 3 (moderate); K70.10 Alcoholic hepatitis without ascites; E78.5 Hyperlipidemia, unspecified; F17.290 Nicotine dependence, other tobacco product, uncomplicated; I25.10 Atherosclerotic heart disease of native coronary artery without angina pectoris; M50.30 Other cervical disc degeneration, unspecified cervical region; K21.9 Gastro-esophageal reflux disease without esophagitis; M19.90 Unspecified osteoarthritis, unspecified site; I12.9 Hypertensive chronic kidney disease with stage 1 through stage 4 chronic kidney disease, or unspecified chronic kidney disease; Z11.59 Encounter for screening for other viral diseases; Z79.899 Other long term (current) drug therapy; Z90.49 Acquired absence of other specified parts of digestive tract; Z86.010 Personal history of colon polyps; Z82.49 Family history of ischemic heart disease and other diseases of the circulatory system; Z83.3 Family history of diabetes mellitus
CPT/HCPCS: 36415; 71046; 80053; 80061; 82150; 83690; 83735; 83880; 84484; 85025; 85610; 85730; 87635; 93005; 93306; 93458; 96365; 96366; 96375; 96376; 99285

== ENCOUNTER 2020-04-15 21:44 | Emergency (ER) | payer MEDICARE, OTHER ==
[2020-04-15 21:51] VITALS: BP 113/86; PULSE 86; RESP 20; TEMP 98.1
--- NOTE | 2020-04-15 22:26 | ED ---
Recheck HPI - General Chief Complaint: Recheck/Abnormal Lab/Rx Stated Complaint: recheck, IV site Time Seen by Provider: 04/15/20 21:57 Source: patient Mode of arrival: ambulatory Limitations: no limitations - History of Present Illness Initial Comments: Patient is a 59-year-old male presenting to emergency department with a chief complaint of IV site bleeding. Patient reports was recently discharged from the hospital after stent placement and was started on [place]. She reports after discharge today, he had a gauze in his left AC. States after he took it off at home, he noticed significant amounts of bleeding and he was able to compress it with gauze. He denies any nausea vomiting diarrhea. Denies any lightheadedness dizziness headaches chest pain or shortness of breath. - Related Data Home Medications Medication Instructions Recorded Confirmed Valsartan/Hydrochlorothiazide 1 tab PO DAILY 11/09/19 04/12/20 [Diovan Hct 160-12.5 mg Tab] Omeprazole [PriLOSEC] 40 mg PO HS 04/12/20 04/12/20 Previous Rx's Medication Instructions Recorded Aspirin 81 mg PO DAILY #30 chew 04/15/20 Atorvastatin [Lipitor] 80 mg PO HS #30 tab 04/15/20 Cefuroxime Axetil [Ceftin] 500 mg PO BID 3 Days #6 tab 04/15/20 Folic Acid 1 mg PO DAILY #30 tablet 04/15/20 Nitroglycerin Sl Tabs [Nitrostat] 0.4 mg SUBLINGUAL Q5M PRN #100 tab 04/15/20 Thiamine [Vitamin B-1] 100 mg PO DAILY #30 tablet 04/15/20 Ticagrelor [Brilinta] 90 mg PO BID #60 tab 04/15/20 traMADol HCL [Ultram] 50 mg PO Q6HR PRN 3 Days #12 tab 04/15/20 Allergies Allergy/AdvReac Type Severity Reaction Status Date / Time No Known Allergies Allergy Verified 04/15/20 21:51 Review of Systems ROS Statement: Those systems with pertinent positive or pertinent negative responses have been documented in the HPI. ROS Other: All systems not noted in ROS Statement are negative. Past Medical History Past Medical History: Coronary Artery Disease (CAD), GERD/Reflux, GI Bleed, Hyperlipidemia, Hypertension, Osteoarthritis (OA) Additional Past Medical History / Comment(s): alcholism , rectal bleed 09/2014, pancreatitis, Cervical disk disease on the neck, gringing History of Any Multi-Drug Resistant Organisms: None Reported Past Surgical History: Cholecystectomy, Heart Catheterization With Stent Additional Past Surgical History / Comment(s): MAUREEN FUNDLAPLASTY, EGDs and colonoscopies with benign polypectomies, TOOTH EXTRACTIONS, Past Anesthesia/Blood Transfusion Reactions: No Reported Reaction Additional Past Anesthesia/Blood Transfusion Reaction / Comment(s): Pt has received blood without reaction. Past Psychological History: No Psychological Hx Reported Smoking Status: Current some day smoker Past Alcohol Use History: Daily Past Drug Use History: None Reported - Past Family History Mother Family Medical History: No Reported History Additional Family Medical History / Comment(s): . Father Family Medical History: Diabetes Mellitus, Hypertension Additional Family Medical History / Comment(s): Father at age 84 yrs. General Exam Limitations: no limitations General appearance: alert, in no apparent distress Head exam: Present: atraumatic, normocephalic, normal inspection Eye exam: Present: normal appearance, PERRL, EOMI Pupils: Present: normal accommodation ENT exam: Present: normal exam, normal oropharynx, mucous membranes moist Neck exam: Present: normal inspection, full ROM Respiratory exam: Present: normal lung sounds bilaterally Cardiovascular Exam: Present: regular rate, normal rhythm, normal heart sounds Extremities exam: Present: normal inspection (Left AC site bleeding ), full ROM Back exam: Present: normal inspection, full ROM Neurological exam: Present: alert, oriented X3 Psychiatric exam: Present: normal affect, normal mood Skin exam: Present: warm, dry, intact, normal color Course Vital Signs 04/15/20 21:49 Temperature 98.1 F Pulse Rate 86 Respiratory 20 Rate Blood Pressure 113/86 O2 Sat by Pulse 100 Oximetry Medical Decision Making - Medical Decision Making Patient is 59-year-old male presenting to emergency department with a chief complaint of IV site malfunction. Gauze with [place] was applied the patient was observed for over half an hour. No bleeding was coming through the gauze. No signs of superficial venous thrombus. Patient asked to follow-up with her care. Return parameters thoroughly discussed the patient is a sitting ago. Case discussed with physician. Disposition Clinical Impression: Complication of intravenous catheter site Disposition: HOME SELF-CARE Condition: Stable Instructions (If sedation given, give patient instructions): IV Infiltration (ED) Additional Instructions: Follow-up with primary care. Return to emergency department if symptoms worsen. Is patient prescribed a controlled substance at d/c from ED?: No Referrals: Jeffry Yang DO [Primary Care Provider] - 1-2 days Time of Disposition: 22:27
== END 2020-04-15 23:03 | disposition home or self-care (01) ==
LOC: EC 21:44
DX: T80.90XA Unspecified complication following infusion and therapeutic injection, initial encounter (principal); I25.10 Atherosclerotic heart disease of native coronary artery without angina pectoris; I10 Essential (primary) hypertension; F17.200 Nicotine dependence, unspecified, uncomplicated; Z79.899 Other long term (current) drug therapy; Z95.5 Presence of coronary angioplasty implant and graft
CPT/HCPCS: 99283

== ENCOUNTER 2020-04-29 12:42 | Inpatient (IN) | payer MEDICARE, OTHER ==
[2020-04-29 13:17] LABS: Basophils # (A) 0.1 k/uL (0-0.2); Basophils % (A) 1 %; Eosinophils # (A) 0.2 k/uL (0-0.7); Eosinophils % (A) 2 %; HCT 25.9 % (39.0-53.0); Hypochromasia Slight; Lymphocytes % (A) 22 %; MCH 31.4 pg (25.0-35.0); MCHC 31.2 g/dL (31.0-37.0); Macrocytosis Slight; Mean Platelet Volume 14.5; Monocytes # (A) 0.6 k/uL (0-1.0); Monocytes % (A) 6 %; Neutrophils # (A) 6.2 k/uL (1.3-7.7); Neutrophils % (A) 66 %; Platelet Count 256 k/uL (150-450); RBC 2.57 m/uL (4.30-5.90); RDW 13.1 % (11.5-15.5); WBC 9.4 k/uL (3.8-10.6)
--- NOTE | 2020-04-29 13:22 | XR ---
EXAMINATION TYPE: XR chest 1V portable DATE OF EXAM: 04/29/2020 COMPARISON: Chest x-ray April 12, 2020. HISTORY: Shortness of breath. TECHNIQUE: Single AP portable frontal upright view of the chest is obtained. FINDINGS: There is chronic parenchymal change without suspicious new focal air space opacity, pleura l effusion, or pneumothorax seen bilaterally. The cardiac silhouette size is upper limits of normal. Fusion plate in the cervical spine is partially imaged. IMPRESSION: Chronic changes without acute pulmonary process.
[2020-04-29 13:26] LABS: Albumin 4.4 g/dL (3.5-5.0); Potassium 4.3 mmol/L (3.5-5.1); Total Bilirubin 0.3 mg/dL (0.2-1.3); Total Protein 7.7 g/dL (6.3-8.2)
[2020-04-29 13:28] LABS: HGB 8.1 gm/dL (13.0-17.5); MCV 100.7 fL (80.0-100.0)
[2020-04-29 13:36] LABS: Large Platelets Present; Poikilocytosis (M) Present; Polychromasia Present
--- NOTE | 2020-04-29 13:42 | ED ---
General Adult HPI - General Chief complaint: Chest Pain Stated complaint: SOB, CHEST PAIN Time Seen by Provider: 04/29/20 13:06 Source: patient Mode of arrival: ambulatory Limitations: no limitations - History of Present Illness Initial comments: Dictation was produced using [employer] dictation software. please excuse any grammatical, word or spelling errors. This patient was cared for during a federal and state declared state of emergency secondary to Covid 19 Chief Complaint: 59-year-old male presents with chest pain and shortness of breath. History of Present Illness: Patient is 59-year-old male presents with 2 weeks ago patient had coronary artery stents. Patient had a stent placed to the left and right coronary arteries's ago for coronary artery disease. Patient reports that since then he's been having burning chest pain and dyspnea. He really noticed it 3 days ago when he tried to get up from sitting down for a while. Denies any lower extremity swelling. Denies any leg pain. Patient describes the pain as burning sensation to his anterior chest. Denies any exacerbating or mitigating factors. The ROS documented in this emergency department record has been reviewed and confirmed by me. Those systems with pertinent positive or negative responses have been documented in the HPI. All other systems are other negative and/or noncontributory. PHYSICAL EXAM: General Impression: Alert and oriented x3, not in acute distress HEENT: Normocephalic atraumatic, extra-ocular movements intact, pupils equal and reactive to light bilaterally, mucous membranes moist. Cardiovascular: Heart regular rate and rhythm Chest: Able to complete full sentences, no retractions, no tachypnea Abdomen: abdomen soft, non-tender, non-distended, no organomegaly Musculoskeletal: Pulses present and equal in all extremities, no peripheral edema Motor: no focal deficits noted Neurological: CN II-XII grossly intact, no focal motor or sensory deficits noted Skin: Intact with no visualized rashes Psych: Normal affect and mood ED course: 59-year-old male presents with chest pain shortness of breath. Patient pain is atypical with typical features however he did just recently have a cardiac catheterization performed 2 weeks ago. Patient is well-appearing. Vital signs upon arrival are within acceptable limits. EKG shows nonspecific changes to the inferior leads and anterior precordial leads. Overall these findings are nonspecific. Laboratory evaluation obtained. Hemoglobin is 8.1 which is lower than his baseline. He has been complaining of some dark stools concerning for GI bleed. D-dimer elevated 0.86. Metabolic panel is unremarkable. Does have a mild non- gap acidosis. Cardiac enzymes negative. Prematurity peptide is negative. Chest x-ray shows no acute findings. Given elevated d-dimer CT angioma was ob tained showing no findings to suggest pulmonary embolus or dissection. Patient is given aspirin for concerns of chest pain related to acute coronary syndrome. Is also given Protonix. Patient be admitted with GI consultation, cardiology consultation. Patient given aspirin for findings concerning for possible acute cord syndrome given history of coronary artery disease and recent cardiac stents. Patient reevaluated at bedside after placement 3 hours and urgency department. Patient states he still continues to feel some discomfort however he is well-appearing not showing any signs of distress. EKG interpretation: Ventricular rate 84, sinus bradycardia, NC interval 156, QRS 76, QTC 428. No NC prolongation, no QTC prolongation. When compared to EKG from 04/13/[address] depressions in lead V4 and V5. There is also T-wave inversions in inferior leads. There are no ST elevations.. EKG does not suggest ST segment elevation IA at this time. - Related Data Home Medications Medication Instructions Recorded Confirmed Valsartan/Hydrochlorothiazide 1 tab PO DAILY 11/09/19 04/29/20 [Diovan Hct 160-12.5 mg Tab] Omeprazole [PriLOSEC] 40 mg PO HS 04/12/20 04/29/20 Previous Rx's Medication Instructions Recorded Aspirin 81 mg PO DAILY #30 chew 04/15/20 Atorvastatin [Lipitor] 80 mg PO HS #30 tab 04/15/20 Folic Acid 1 mg PO DAILY #30 tablet 04/15/20 Nitroglycerin Sl Tabs [Nitrostat] 0.4 mg SUBLINGUAL Q5M PRN #100 tab 04/15/20 Thiamine [Vitamin B-1] 100 mg PO DAILY #30 tablet 04/15/20 Ticagrelor [Brilinta] 90 mg PO BID #60 tab 04/15/20 Allergies Allergy/AdvReac Type Severity Reaction Status Date / Time No Known Allergies Allergy Verified 04/29/20 14:34 Review of Systems ROS Statement: Those systems with pertinent positive or pertinent negative responses have been documented in the HPI. ROS Other: All systems not noted in ROS Statement are negative. Past Medical History Past Medical History: Coronary Artery Disease (CAD), GERD/Reflux, GI Bleed, Hyperlipidemia, Hypertension, Osteoarthritis (OA) Additional Past Medical History / Comment(s): alcholism , rectal bleed 09/2014, pancreatitis, Cervical disk disease on the neck, gringing History of Any Multi-Drug Resistant Organisms: None Reported Past Surgical History: Cholecystectomy, Heart Catheterization With Stent Additional Past Surgical History / Comment(s): MAUREEN FUNDLAPLASTY, EGDs and colonoscopies with benign polypectomies, TOOTH EXTRACTIONS, Past Anesthesia/Blood Transfusion Reactions: No Reported Reaction Additional Past Anesthesia/Blood Transfusion Reaction / Comment(s): Pt has received blood without reaction. Past Psychological History: No Psychological Hx Reported Smoking Status: Light tobacco smoker Past Alcohol Use History: None Reported Past Drug Use History: None Reported - Past Family History Mother Family Medical History: No Reported History Additional Family Medical History / Comment(s): . Father Family Medical History: Diabetes Mellitus, Hypertension Additional Family Medical History / Comment(s): Father at age 84 yrs. General Exam Limitations: no limitations Course Vital Signs 04/29/20 04/29/20 12:48 13:08 Temperature 98.1 F 97.4 F L Pulse Rate 75 57 L Respiratory 18 Rate Blood Pressure 138/76 133/81 O2 Sat by Pulse 98 100 Oximetry Medical Decision Making - Lab Data Result diagrams: 04/29/20 13:05 04/29/20 13:05 Lab Results 04/29/20 04/29/20 04/29/20 Range/Units 13:05 13:05 13:05 WBC 9.4 (3.8-10.6) k/uL RBC 2.57 L (4.30-5.90) m/uL Hgb 8.1 L D (13.0-17.5) gm/dL Hct 25.9 L (39.0-53.0) % MCV 100.7 H D (80.0-100.0) fL MCH 31.4 (25.0-35.0) pg MCHC 31.2 (31.0-37.0) g/dL RDW 13.1 (11.5-15.5) % Plt Count 256 (150-450) k/uL Neutrophils % 66 % Lymphocytes % 22 % Monocytes % 6 % Eosinophils % 2 % Basophils % 1 % Neutrophils # 6.2 (1.3-7.7) k/uL Lymphocytes # 2.0 (1.0-4.8) k/uL Monocytes # 0.6 (0-1.0) k/uL Eosinophils # 0.2 (0-0.7) k/uL Basophils # 0.1 (0-0.2) k/uL Differential Comment Manual Slide Review Performed Large Platelets Present Polychromasia Present Hypochromasia Slight Poikilocytosis (manual Present Macrocytosis Slight D-Dimer (<0.60) mg/L FEU Sodium 137 (137-145) mmol/L Potassium 4.3 (3.5-5.1) mmol/L Chloride 107 (98-107) mmol/L Carbon Dioxide 19 L (22-30) mmol/L Anion Gap 11 mmol/L BUN 16 (9-20) mg/dL Creatinine 1.09 (0.66-1.25) mg/dL Est GFR (CKD-EPI)AfAm 85 (>60 ml/min/1.73 sqM) Est GFR (CKD-EPI)NonAf 73 (>60 ml/min/1.73 sqM) Glucose 98 (74-99) mg/dL Calcium 10.0 (8.4-10.2) mg/dL Total Bilirubin 0.3 (0.2-1.3) mg/dL AST 44 (17-59) U/L ALT 48 (4-49) U/L Alkaline Phosphatase 83 (38-126) U/L CK-MB (CK-2) 0.3 (0.0-2.4) ng/mL Troponin I <0.012 (0.000-0.034) ng/mL NT-Pro-B Natriuret Pep pg/mL Total Protein 7.7 (6.3-8.2) g/dL Albumin 4.4 (3.5-5.0) g/dL 04/29/20 04/29/20 Range/Units 13:05 13:05 WBC (3.8-10.6) k/uL RBC (4.30-5.90) m/uL Hgb (13.0-17.5) gm/dL Hct (39.0-53.0) % MCV (80.0-100.0) fL MCH (25.0-35.0) pg MCHC (31.0-37.0) g/dL RDW (11.5-15.5) % Plt Count (150-450) k/uL Neutrophils % % Lymphocytes % % Monocytes % % Eosinophils % % Basophils % % Neutrophils # (1.3-7.7) k/uL Lymphocytes # (1.0-4.8) k/uL Monocytes # (0-1.0) k/uL Eosinophils # (0-0.7) k/uL Basophils # (0-0.2) k/uL Differential Comment Manual Slide Review Large Platelets Polychromasia Hypochromasia Poikilocytosis (manual Macrocytosis D-Dimer 0.86 H (<0.60) mg/L FEU Sodium (137-145) mmol/L Potassium (3.5-5.1) mmol/L Chloride (98-107) mmol/L Carbon Dioxide (22-30) mmol/L Anion Gap mmol/L BUN (9-20) mg/dL Creatinine (0.66-1.25) mg/dL Est GFR (CKD-EPI)AfAm (>60 ml/min/1.73 sqM) Est GFR (CKD-EPI)NonAf (>60 ml/min/1.73 sqM) Glucose (74-99) mg/dL Calcium (8.4-10.2) mg/dL Total Bilirubin (0.2-1.3) mg/dL AST (17-59) U/L ALT (4-49) U/L Alkaline Phosphatase (38-126) U/L CK-MB (CK-2) (0.0-2.4) ng/mL Troponin I (0.000-0.034) ng/mL NT-Pro-B Natriuret Pep 188 pg/mL Total Protein (6.3-8.2) g/dL Albumin (3.5-5.0) g/dL Disposition Clinical Impression: Anemia, Dyspnea Disposition: ADMITTED IP TO THIS [facility] Condition: Fair Referrals: Jeffry Yang DO [Primary Care Provider] - 1-2 days Decision Time: 15:28
[2020-04-29 13:51] LABS: Creatine Kinase MB 0.3 ng/mL (0.0-2.4); Troponin I <0.012 ng/mL (0.000-0.034)
[2020-04-29] MEDS ORDERED: PANTOPRAZOLE 40 MG/10 ML VIAL IVP ONE (14:08)
[2020-04-29] MEDS ORDERED: ASPIRIN 81 MG PO STA (15:11)
--- NOTE | 2020-04-29 15:18 | CT ---
EXAMINATION TYPE: CT angio chest DATE OF EXAM: 04/29/2020 COMPARISON: NONE HISTORY: Post cardiac stent placement March 2020. Shortness of breath CT DLP: 384.4 mGycm. Automated Exposure Control for Dose Reduction was Utilized. CONTRAST: CTA scan of the thorax is performed with IV Contrast, patient injected with 100 mL of Isovue 300, pul monary embolism protocol. MIP Images are created on CT scanner and reviewed. FINDINGS: LUNGS: There is a left midlung bulla noted measuring 5.7 cm. Punctate calcified pleural plaque on [address] 62 on the left anterolaterally versus small calcified subpleural benign granuloma. Minimal bibasil ar subsegmental atelectasis. Left basilar pleural-parenchymal scarring. Lungs are grossly clear, ther e is no concerning parenchymal mass or nodule identified. There is no pleural effusion or pneumotho rax seen. The tracheobronchial tree is patent. MEDIASTINUM: There is satisfactory enhancement of the pulmonary artery and its branches, there is no CT evidence for pulmonary embolism. There are no greater than 1 cm hilar or mediastinal lymph nodes. Incidentally noted normal variant bovine aortic arch. Mild atherosclerosis of the thoracic aorta. Co ronary artery stent and background moderate [place] coronary artery calcifications. Heart is mildly en larged. No pericardial effusion. No thoracic aortic dissection or aneurysm seen although the aortic r oot is somewhat limited given motion. OTHER: Mild bilateral retroareolar probable symmetric gynecomastia. Postsurgical change at the gastro esophageal junction. Slight thickening of the bilateral adrenal glands, possibly bilateral adrenal gl and hyperplasia. Hypoattenuated ill-defined right renal lesion may represent a renal sinus cyst on im age 89. 2 small to accurately characterize hepatic lesion is marked on image 144. Gallbladder surgic ally absent. Partially visualized cervical fusion device. Moderate degenerative change of the spine. Likely calcified posterior disc fragment and T9-T10 that could be further evaluated with MRI. IMPRESSION: 1. No CT evidence of pulmonary embolus. 2. No thoracic aortic dissection or aneurysm in the ascending aorta, aortic root or descending thorac ic aorta. 3. Multiple incidental findings as above.
[2020-04-29] MEDS ORDERED: ONDANSETRON 4 MG/2 ML VIAL IVP PRN (15:22)
[2020-04-29] MEDS ORDERED: NALOXONE 0.4 MG/ML 1 ML VIAL IV PRN (15:22)
[2020-04-29] MEDS ORDERED: ACETAMINOPHEN TAB 325 MG TAB PO PRN (15:22)
[2020-04-29] MEDS: MORPHINE SULFATE 4 MG/ML SYRINGE IVP PRN ×2 (15:37→20:06)
--- NOTE | 2020-04-29 18:41 | US ---
EXAMINATION TYPE: US venous doppler duplex LE DATE OF EXAM: 04/29/2020 6:34 PM COMPARISON: NONE CLINICAL HISTORY: leg pain, positive ddimer; rule out DVT. SIDE PERFORMED: Bilateral TECHNIQUE: The lower extremity deep venous system is examined utilizing real time linear array sonog sangita with graded compression, doppler sonography and color-flow sonography. VESSELS IMAGED: External Iliac Vein (EIV) Common Femoral Vein Deep Femoral Vein Greater Saphenous Vein * Femoral Vein Popliteal Vein Small Saphenous Vein * Proximal Calf Veins (* superficial vessels) Right Leg: Negative for DVT Left Leg: Negative for DVT IMPRESSION: 1. Bilateral lower extremity ultrasound negative for deep venous thrombosis.
[2020-04-29] MEDS: SODIUM CHLORIDE 0.9% 1,000 ML IV SCH (18:43)
[2020-04-29] MEDS: ATORVASTATIN 80 MG TAB PO SCH (21:42)
[2020-04-30] MEDS ORDERED: NITROGLYCERIN SL TABS 0.4 MG TAB SUBLINGUAL PRN (00:10)
[2020-04-30] MEDS ORDERED: THIAMINE 100 MG/ML 2 ML VIAL IM STA (00:12)
[2020-04-30] MEDS ORDERED: LORazepam 2 MG/ML INJ IV PRN ×3 (00:12)
[2020-04-30] MEDS: MORPHINE SULFATE 4 MG/ML SYRINGE IVP PRN (00:24)
[2020-04-30] MEDS: SODIUM CHLORIDE 0.9% 1,000 ML IV SCH ×2 (04:47→08:05)
[2020-04-30] MEDS: MORPHINE SULFATE 4 MG/ML SYRINGE IV PRN ×2 (04:47→11:09)
[2020-04-30] MEDS: THIAMINE 100 MG TAB PO SCH (08:05)
[2020-04-30] MEDS: HYDROCHLOROTHIAZIDE 25 MG TAB PO SCH (08:05)
[2020-04-30] MEDS: FOLIC ACID 1 MG TAB PO SCH (08:05)
[2020-04-30] MEDS: PANTOPRAZOLE 40 MG/10 ML VIAL IV SCH (08:05)
[2020-04-30] MEDS: VALSARTAN 160 MG TAB PO SCH (08:05)
--- NOTE | 2020-04-30 08:05 | HP ---
HISTORY AND PHYSICAL DATE OF SERVICE: 04/30/2020 CHIEF COMPLAINTS: Chest pain, asthma and GI bleed. HISTORY OF PRESENT ILLNESS: This 59-year-old gentleman with a past medical history of multiple medical problems including history of CAD, history GERD, GI bleed, hypertension, DJD, history of alcoholism, history of cholecystectomy, CAD/stent being followed by Dr. Yang in the outpatient setting was recently admitted 2 weeks ago with acute [id number]- elevation myocardial infarction. Patient underwent stenting of the mid LAD and mid RCA and the patient went home and subsequently patient was complaining of chest pain which was felt in the left side of the chest and across the chest also, especially occurring up to exertion, even 15 minutes after exertion. Patient also noted some black colored stools for the last several days and because of the symptoms, patient came to [facility] and admitted for further evaluation and treatment. Patient apparently had an episode of gastrointestinal bleed about 3 years ago. Investigative reports are not available at this time. Hemoglobin is found to be 8.1. Hemoglobin during the recent admission was 10.5, not indicating significant drop at this time. MCV was 100.7, D-dimer 0.86. There is no history of fever, rigors. No headache, loss of consciousness, seizures. PAST MEDICAL HISTORY: History of CAD, history of GERD, GI bleed, hypertension, hyperlipidemia, history of DJD, history of alcoholism, history of cholecystectomy, history of CAD/stent. MEDICATIONS: 1. Diovan 1 p.o. daily. 2. Brilinta 90 mg p.o. b.i.d. 3. Vitamin B1 100 mg. 4. Nexium 40 mg. 5. Nitrostat p.r.n. 6. Folic acid 1 mg daily. 7. Lipitor 80 mg q.h.s. 8. Aspirin 81 mg daily. ALLERGIES: None. FAMILY HISTORY: History of diabetes and hypertension in the family. SOCIAL HISTORY: History of light smoking. No history of alcohol intake. REVIEW OF SYSTEMS: ENT No history of diminished hearing or vision. CARDIOVASCULAR As mentioned earlier. RESPIRATORY As mentioned earlier. GI As mentioned earlier. No dysuria or hematuria. NERVOUS No numbness or weakness. ALLERGY/IMMUNOLOGY No asthma or hayfever. MUSCULOSKELETAL As mentioned earlier. HEMATOLOGY/ONCOLOGY Negative. ENDOCRINE As mentioned earlier. CONSTITUTIONAL No history of fever or weight loss. DERMATOLOGY Negative. RHEUMATOLOGY Negative, PSYCHIATRY As mentioned earlier. PHYSICAL EXAMINATION: Alert and oriented x3. Pulse 59, blood pressure 130/67, respiration 17, temperature is 98.3, pulse ox 100% on room air. HEENT: Conjunctivae normal. Oral mucosa moist. NECK: No jugular venous distention. No lymph node enlargement. CARDIOVASCULAR: S1, S2. RESPIRATORY: Diminished breath sounds at the bases. No rhonchi, no crackles. ABDOMEN: Soft, nontender, obese. No mass palpable. LEGS: No edema, no swelling. NERVOUS SYSTEM: Higher functions mentioned earlier. Moves all four limbs. No focal deficits. LYMPHATICS: No lymph node in neck or axilla. SKIN: No rash. JOINTS: No active deforming arthropathy. LAB STUDIES: WBC 9.2, hemoglobin is 8.1, MCV 100.7, D-dimer is 0.86, CO2 is 19. ASSESSMENT: 1. Chest pain, possible unstable angina. 2. History of recent cardiac cath, coronary artery disease and stent with acute non-ST- segment-elevation myocardial infarction, stenting of the mid LAD and mid RCA. 3. Acute gastrointestinal bleed, rule out peptic ulcer disease. 4. Anemia, acute blood loss anemia. 5. Increased MCV. 6. Previous history of gastrointestinal bleed. 7. Gastroesophageal reflux disease. 8. Hypertension. 9. Hyperlipidemia. 10.History of degenerative joint disease. 11.History of alcoholism. 12.History of rectal bleeding. 13.History of pancreatitis. 14.Cervical degenerative joint disease. 15.History of cholecystectomy. RECOMMENDATIONS AND DISCUSSION: In this 59-year-old gentleman who presented with multiple complex medical issues, we will monitor the patient closely, continue the current management and symptomatic treatment. Otherwise, at this time I recommend cardiology evaluation. We will monitor the hemoglobin closely and if the hemoglobin is less than 7 we will transfuse the patient. Also, recommend a GI consultation for possible endoscopies. Otherwise, resume the home medications and guarded prognosis because of multiple complex medical conditions. Will also recommend repeat labs as well. Alcohol cessation and CIWA protocol will also be used. MMODL / IJN: [id number] /
[2020-04-30] MEDS: HYDROcodone/APAP 5-325MG 1 EACH TAB PO PRN (08:08)
--- NOTE | 2020-04-30 09:16 | P.CRDCN ---
History of Present Illness History of present illness: This is Dr. Gandhi dictating a consult on this patient The patient was interviewed and examined IMPRESSION / ASSESSMENT: Impression presenting with chest discomfort and shortness of breath with EKG changes with T-wave inversions in the lateral precordial leads and the prior ECG showing ST depression in those same leads Drop in hemoglobin from around 11-13 g/dL down to 8.1 now Antiplatelet agents on hold Exertional burning discomfort similar to when he came in for the stent Darkstools for the last week with diarrhea PLAN: HPI 59-year-old male patient presented with a burning discomfort and dyspnea for the last 3 days He also complains of shortness of breath He complained of dark stools Hemoglobin is 8.1 she was lower than his baseline ROS: No fever chills or rigors, no cough, phlegm or expectoration, no nausea, vomiting or diarrhea, no hematuria, dysuria, no musculoskeletal complaints, no strokes or seizures, no skin lesions. EXAMINATION: Heart rate in the 50s, afebrile 98.3, blood pressure 100/54 mmHg Systolic murmur Lungs are clear normal breath sounds No JVD No lower extremity edema REVIEW OF LABS, ECG & MEDICAL DATA No acute changes on chest x-ray Twelve-lead ECG shows sinus rhythm heart is 54 beats a minute biphasic T waves in V3 and T-wave inversions in V4 and V5 Previous ECG showed ST depression in V4 V5 V6 Hemoglobin 8.1 MCV 100 D-dimer 0.[address] did not show any pulmonary embolism 3 normal cardiac enzymes Normal S normal kidney function Past Medical History Past Medical History: Coronary Artery Disease (CAD), GERD/Reflux, GI Bleed, Hyperlipidemia, Hypertension, Osteoarthritis (OA) Additional Past Medical History / Comment(s): alcholism , rectal bleed 09/2014, pancreatitis, Cervical disk disease on the neck fused 3 disks, gringing, arthritis in neck History of Any Multi-Drug Resistant Organisms: None Reported Past Surgical History: Cholecystectomy, Heart Catheterization With Stent, Hernia Repair Additional Past Surgical History / Comment(s): MAUREEN FUNDLAPLASTY, EGDs and c olonoscopies with benign polypectomies, TOOTH EXTRACTIONS, gallbladder out sep 2020, bunion R foot removed Past Anesthesia/Blood Transfusion Reactions: No Reported Reaction Additional Past Anesthesia/Blood Transfusion Reaction / Comment(s): Pt has re ceived blood without reaction. Date of Last Stent Placement:: 04/14/20 Past Psychological History: No Psychological Hx Reported Additional Psychological History / Comment(s): Pt states he lives alone. He is independent. He uses no assistive device. He drives. Smoking Status: Light tobacco smoker Past Alcohol Use History: None Reported Additional Past Alcohol Use History / Comment(s): STATES SMOKES CIGARS OCCASIONALLY starting in 2009 Past Drug Use History: None Reported - Past Family History Mother Family Medical History: No Reported History Additional Family Medical History / Comment(s): . Father Family Medical History: Diabetes Mellitus, Hypertension, Myocardial Infarction ([place]) Additional Family Medical History / Comment(s): Father at age 84 yrs. Medications and Allergies Home Medications Medication Instructions Recorded Confirmed Type Valsartan/Hydrochlorothiazide 1 tab PO DAILY 11/09/19 04/29/20 History [Diovan Hct 160-12.5 mg Tab] Omeprazole [PriLOSEC] 40 mg PO HS 04/12/20 04/29/20 History Aspirin 81 mg PO DAILY #30 chew 04/15/20 04/29/20 Rx Atorvastatin [Lipitor] 80 mg PO HS #30 tab 04/15/20 04/29/20 Rx Folic Acid 1 mg PO DAILY #30 tablet 04/15/20 04/29/20 Rx Nitroglycerin Sl Tabs [Nitrostat] 0.4 mg SUBLINGUAL Q5M PRN #100 tab 04/15/20 04/29/20 Rx Thiamine [Vitamin B-1] 100 mg PO DAILY #30 tablet 04/15/20 04/29/20 Rx Ticagrelor [Brilinta] 90 mg PO BID #60 tab 04/15/20 04/29/20 Rx Allergies Allergy/AdvReac Type Severity Reaction Status Date / Time No Known Allergies Allergy Verified 04/29/20 14:34 Physical Exam Vitals: Vital Signs Temp Pulse Pulse Pulse Resp BP BP 04/30/20 08:00 98.3 F 54 L 18 100/54 04/30/20 04:00 97.5 F L 50 L 18 102/54 04/30/20 00:00 98.2 F 59 L 52 L 17 109/59 04/29/20 20:00 98.3 F 59 L 59 L 17 131/67 04/29/20 16:19 97.6 F 54 L 18 124/71 04/29/20 15:32 55 L 18 124/71 04/29/20 13:08 97.4 F L 57 L 133/81 04/29/20 12:48 98.1 F 75 18 138/76 Pulse Ox 04/30/20 08:00 100 04/30/20 04:00 98 04/30/20 00:00 100 04/29/20 20:00 100 04/29/20 16:19 100 04/29/20 15:32 04/29/20 13:08 100 04/29/20 12:48 98 Intake and Output 04/29/20 04/30/20 04/30/20 22:59 06:59 14:59 Other: # Voids 1 Weight 79.379 kg 76.7 kg Results 04/29/20 13:05 04/29/20 13:05 Cardiac Enzymes 04/29/20 04/29/20 04/29/20 Range/Units 13:05 13:05 19:12 AST 44 (17-59) U/L CK-MB (CK-2) 0.3 (0.0-2.4) ng/mL Troponin I <0.012 <0.012 (0.000-0.034) ng/mL 04/30/20 Range/Units 00:44 AST (17-59) U/L CK-MB (CK-2) (0.0-2.4) ng/mL Troponin I <0.012 (0.000-0.034) ng/mL CBC 04/29/20 Range/Units 13:05 WBC 9.4 (3.8-10.6) k/uL RBC 2.57 L (4.30-5.90) m/uL Hgb 8.1 L D (13.0-17.5) gm/dL Hct 25.9 L (39.0-53.0) % Plt Count 256 (150-450) k/uL Comprehensive Metabolic Panel 04/29/20 Range/Units 13:05 Sodium 137 (137-145) mmol/L Potassium 4.3 (3.5-5.1) mmol/L Chloride 107 (98-107) mmol/L Carbon Dioxide 19 L (22-30) mmol/L BUN 16 (9-20) mg/dL Creatinine 1.09 (0.66-1.25) mg/dL Glucose 98 (74-99) mg/dL Calcium 10.0 (8.4-10.2) mg/dL AST 44 (17-59) U/L ALT 48 (4-49) U/L Alkaline Phosphatase 83 (38-126) U/L Total Protein 7.7 (6.3-8.2) g/dL Albumin 4.4 (3.5-5.0) g/dL Current Medications Generic Name Dose Route Start Last Admin Trade Name Freq PRN Reason Stop Dose Admin Acetaminophen 650 mg 04/29/20 15:22 Tylenol Tab PO Q6HR PRN Mild Pain or Fever > 100.5 Hydrocodone Bitart/Acetaminophen 1 each 04/30/20 00:12 04/30/20 08:08 [place] 5-325 PO 1 each Q6HR PRN Administration Pain Atorvastatin Calcium 80 mg 04/29/20 21:00 04/29/20 21:42 Lipitor PO 80 mg HS LOLA Administration Folic Acid 1 mg 04/30/20 09:00 04/30/20 08:05 Folic Acid PO 1 mg DAILY LOLA Administration Hydrochlorothiazide 12.5 mg 04/30/20 09:00 04/30/20 08:05 Hydrodiuril PO 12.5 mg DAILY LOLA Administration Sodium Chloride 1,000 mls @ 75 mls/hr 04/29/20 15:30 04/30/20 08:05 Saline 0.9% IV Not Given .[id number] LOLA Lorazepam 1 mg 04/30/20 00:12 Ativan IV Q2HR PRN CIWA 8 or 9 Lorazepam 1 mg 04/30/20 00:12 Ativan IV Q1HR PRN CIWA 10 to 15 Lorazepam 2 mg 04/30/20 00:12 Ativan IV 05/02/20 00:12 Q10M PRN CIWA 16 or higher Morphine Sulfate 4 mg 04/29/20 15:14 04/30/20 00:24 Morphine Sulfate (Inj) IVP 4 mg ONCE PRN Administration Pain Morphine Sulfate 4 mg 04/29/20 15:22 04/30/20 04:47 Morphine Sulfate (Inj) IV 4 mg Q4HR PRN Administration Severe Pain Naloxone HCl 0.2 mg 04/29/20 15:22 Narcan IV Q2M PRN Opioid Reversal Nitroglycerin 0.4 mg 04/30/20 00:10 Nitrostat SUBLINGUAL Q5M PRN Chest Pain Ondansetron HCl 4 mg 04/29/20 15:22 Zofran IVP Q8HR PRN Nausea And Vomiting Pantoprazole Sodium 40 mg 04/30/20 09:00 04/30/20 08:05 Protonix IV 40 mg DAILY LOLA Administration Thiamine HCl 100 mg 04/30/20 09:00 04/30/20 08:05 Vitamin B-1 PO 100 mg DAILY LOLA Administration Valsartan 160 mg 04/30/20 09:00 04/30/20 08:05 Diovan PO 160 mg DAILY LOLA Administration Intake and Output 04/29/20 04/30/20 04/30/20 22:59 06:59 14:59 Other: # Voids 1 Weight 79.379 kg 76.7 kg 04/29/20 13:05 04/29/20 13:05
[2020-04-30] MEDS: NITROGLYCERIN OINT 1 INCH/GM PACKET TOPICAL SCH ×2 (11:08→12:58)
[2020-04-30 12:54] LABS: HCT 22.5 % (39.0-53.0); HGB 7.1 gm/dL (13.0-17.5); Hypochromasia Marked; MCH 32.9 pg (25.0-35.0); MCHC 31.7 g/dL (31.0-37.0); MCV 103.8 fL (80.0-100.0); Macrocytosis Slight; Mean Platelet Volume 14.6; Platelet Count 191 k/uL (150-450); RBC 2.17 m/uL (4.30-5.90); RDW 13.4 % (11.5-15.5)
[2020-04-30 13:54] LABS: Eosinophils # (M) 0.14 k/uL (0-0.7); Lymphocytes # (M) 1.54 k/uL (1.0-4.8); Monocytes # (M) 0.98 k/uL (0-1.0); Neutrophils # (M) 4.34 k/uL (1.3-7.7); Neutrophils % (M) 62 %; Nucleated Red Blood Cells 0 /100 WBC (0-0); Total Cells Counted 100
[2020-04-30 13:58] LABS: Large Platelets Present
[2020-04-30 14:02] LABS: Rouleaux Present
--- NOTE | 2020-04-30 14:56 | CONS ---
CONSULTATION DATE OF DICTATION: April 30, 2020. REQUESTING PHYSICIAN: Dr. Jeffry Yang. REASON FOR CONSULTATION: Black tarry stools of 3 days duration. HISTORY OF PRESENT ILLNESS: The patient is a 59-year-old pleasant white male with history of coronary artery disease status post recent hospitalization with stent placement, history of gastroesophageal reflux disease and hypertension, was admitted to the hospital with some chest pain, epigastric discomfort and black tarry stools for the last 3 days duration. He had some chest tightness. He had an EKG done that did not show any changes. Troponins were negative. Cardiology has been consulted for further evaluation. In the meantime, patient has been complaining of black tarry stools for the last 2 days duration. He has 1 or 2 episodes every day. His hemoglobin at the time of admission to the hospital was 8.1 g/dL and recently prior to the discharge from the hospital 2 weeks ago, it was 10.5 g/dL. He denies any recent NSAID use. No prior history of peptic ulcer disease. PAST MEDICAL HISTORY: Significant for GERD, coronary artery disease, hypertension, hyperlipidemia, degenerative joint disease, prior history of alcohol use. PAST SURGICAL HISTORY: Cholecystectomy recently, recent cardiac catheterization with stent placement. MEDICATIONS: At home include Diovan, Brilinta, vitamin B1, Nexium, Nitrostat, folic acid, Lipitor, and aspirin. ALLERGIES: None. SOCIAL HISTORY: Chronic smoker. Prior history of alcohol use. He quit drinking about 3 years ago. FAMILY HISTORY: History of diabetes mellitus and hypertension in mom and dad. REVIEW OF SYSTEMS: Cardiopulmonary: Chest pain as mentioned above Genitourinary: No dysuria or hematuria. MUSCULOSKELETAL unremarkable. Skin unremarkable. Endocrine unremarkable. Neurology unremarkable. Psychiatric unremarkable. ENT/VISION: Unremarkable. CONSTITUTIONAL: No recent weight loss. No fever, chills, night sweats. HEMATOLOGY: Anemia as mentioned above. PHYSICAL EXAMINATION: He appears comfortable. No apparent distress. VITAL SIGNS stable. Blood pressure is 112/56, pulse rate 58, temperature 97.9. HEENT examination unremarkable. Conjunctivae pink. Sclerae anicteric. Oral cavity no lesions. NECK no JVD or lymph node enlargement. CHEST was clear to auscultation. HEART: Regular rate and rhythm. ABDOMEN: Soft. Mild tenderness in the epigastric area. Bowel sounds are positive. No organomegaly. EXTREMITIES: No pedal edema. SKIN no rashes. NEUROLOGIC: Alert and oriented x3. No focal deficits. LABS: WBC 9.4, hemoglobin 8.1, platelets normal, MCV 100. Basic metabolic panel is within normal limits. Troponin x3 was negative. IMPRESSION: 1. Black tarry stools for the last 3 days duration and anemia with a hemoglobin of 8.1 g/dL. Clinically he remains hemodynamically stable. Most likely upper GI source of bleeding. The patient was recently started on Brilinta and aspirin after having a cardiac cath with stent placement 2 weeks ago. 2. Chest pain. Cardiology has been consulted who has not seen the patient yet. 3. Anemia. 4. History of alcohol abuse in the past. 5. History of hypertension and hyperlipidemia. RECOMMENDATIONS: 1. Continue with Protonix 40 mg twice daily. 2. Hold off on aspirin and Brilinta. 3. Await cardiology evaluation. 4. Repeat CBC in the morning. 5. We will proceed with an upper endoscopy tomorrow. I discussed with the patient risks, benefits and complications of procedure and he is agreeable to it. Thank you for this consultation. MMODL / IJN: [id number] /
[2020-04-30] MEDS: HYDROmorphone 0.5 MG/0.5 ML SYRINGE IVP PRN ×2 (15:05→21:02)
--- NOTE | 2020-04-30 16:00 | ECHOF ---
Referral Reason:abn ecg MEASUREMENTS -------- HEIGHT: 182.9 cm WEIGHT: 76.7 kg BP: 100/54 IVSd: 1.3 cm (0.6 - 1.1) LVIDd: 3.7 cm (3.9 - 5.3) LVPWd: 1.3 cm (0.6 - 1.1) IVSs: 1.7 cm LVIDs: 2.5 cm LVPWs: 1.7 cm LA Diam: 3.3 cm (2.7 - 3.8) RVIDd: 3.6 cm (< 3.3) LAESV Index (A-L): 36.44 ml/m Ao Diam: 3.1 cm (2.0 - 3.7) AV Cusp: 2.5 cm (1.5 - 2.6) EPSS: 0.2 cm MV E Benji: 1.11 m/s MV DecT: 269 ms MV A Benji: 0.59 m/s MV E/A Ratio: 1.88 MV EF SLOPE: 47.44 mm/s (70 - 150) MV EXCURSION: 15.62 mm (> 18.000) FINDINGS -------- Resting bradycardia (HR<60bpm). This was a technically good study. The left ventricular size is normal. There is mild concentric left ventricular hypertrophy. Overa ll left ventricular systolic function is normal with, an EF between 60 - 65 %. The right ventricle is mildly enlarged. LA is moderately dilated 34-39 ml/m2 The right atrium is normal in size. Interatrial and interventricular septum intact. The aortic valve is trileaflet and appears structurally normal. There is trace to mild mitral regurgitation. Trace tricuspid regurgitation present. Trace/mild (physiologic) pulmonic regurgitation. The aortic root size is normal. Normal inferior vena cava with normal inspiratory collapse consistent with estimated right atrial pre ssure of 5 mmHg. There is no pericardial effusion. CONCLUSIONS -------- 1. Resting bradycardia (HR<60bpm). 2. This was a technically good study. 3. The left ventricular size is normal. 4. There is mild concentric left ventricular hypertrophy. 5. Overall left ventricular systolic function is normal with, an EF between 60 - 65 %. 6. The right ventricle is mildly enlarged. 7. LA is moderately dilated 34-39 ml/m2 8. The right atrium is normal in size. 9. Interatrial and interventricular septum intact. 10. The aortic valve is trileaflet and appears structurally normal. 11. There is trace to mild mitral regurgitation. 12. Trace tricuspid regurgitation present. 13. Trace/mild (physiologic) pulmonic regurgitation. 14. The aortic root size is normal. 15. Normal inferior vena cava with normal inspiratory collapse consistent with estimated right atrial pressure of 5 mmHg. 16. There is no pericardial effusion. TRUCK LOADER AND UNLOADER: Rosalee Walters RDCS
--- NOTE | 2020-04-30 20:20 | PN ---
PROGRESS NOTE DATE OF SERVICE: 04/30/2020 This 59-year-old gentleman who was admitted with chest pain is being closely monitored at this time. The patient had a 2D echo. The patient also had GI bleed also. Dr. Begum has seen the patient and recommending possible EGD tomorrow. The 2D echo showed ejection fraction 60 to 65%. Cardiology is also following the patient closely. The patient is being transfused 1 unit for symptomatic anemia at this time. Hemoglobin has fallen to 7.1 from 8.1, it was 8.1 yesterday. PAST MEDICAL HISTORY: Reviewed. REVIEW OF SYSTEMS: CARDIOVASCULAR System as mentioned earlier. RESPIRATORY: As mentioned earlier. GI: As mentioned earlier. no dysuria. NERVOUS SYSTEM: No numbness or weakness. CURRENT MEDICATIONS: Reviewed and include: 1. Tylenol. 2. [place] 5 mg. 3. Lipitor. 4. Folic acid. 5. HydroDIURIL. 6. Dilaudid. 7. Ativan. 8. Narcan. 9. Nitrostat. 10.Nitro-Bid. 11.Zofran. 12.Protonix. 13.Vitamin B1. 14.Diovan. PHYSICAL EXAMINATION: Patient is alert, oriented x3. Pulse is 51, blood pressure 96/49, respiration 18, temperature 98 degrees, pulse ox normal. HEENT: Conjunctivae normal. NECK: No JVD. CARDIOVASCULAR: S1, S2 muffled. RESPIRATORY: Breath sounds diminished in the bases. A few scattered rhonchi. ABDOMEN: Soft. Nontender. LEGS are no edema. No swelling. NERVOUS SYSTEM: No focal deficits. LABS: At this time shows hemoglobin 7.1, otherwise a chest x-ray which was done at the time of admission showed chronic changes. ASSESSMENT: 1. Chest pain, possible unstable angina. 2. History of recent cardiac cath, coronary artery disease/stent with acute non-ST- segment-elevation myocardial infarction, stenting of the mid LAD and mid RCA. 3. Acute gastrointestinal bleed with acute blood loss anemia possibly peptic ulcer disease. 4. Increased MCV. 5. Previous history of gastrointestinal bleed. 6. Gastroesophageal reflux disease. 7. Hypertension. 8. Hyperlipidemia. 9. History of degenerative joint disease. 10.History of alcoholism. 11.History of rectal bleeding. 12.History of pancreatitis. 13.Cervical degenerative joint disease. 14.History of cholecystectomy. RECOMMENDATIONS AND DISCUSSION: In this 59-year-old gentleman who presented with multiple complex medical issues, we will monitor the patient closely, continue the current management and treatment. I would recommend 1 unit transfusion for symptomatic anemia. Closely follow with Cardiology. Gastroenterology evaluation. Possible endoscopies. Prognosis guarded because of multiple complex medical issues. Further recommendations to follow. Discussed with the patient. Also recommend pain medications also at this time. See orders for details. I would recommend full admission with more than 2 midnights for further evaluation and treatment of the above mentioned multiple complex medical issues. MMODL / IJN: [id number] /
[2020-04-30] MEDS ORDERED: NON FORMULARY DRUG (Omeprazole 40 MG) PO SCH (21:00)
[2020-04-30] MEDS: ATORVASTATIN 80 MG TAB PO SCH (21:03)
[2020-05-01] MEDS: HYDROcodone/APAP 5-325MG 1 EACH TAB PO PRN (01:12)
[2020-05-01] MEDS: HYDROmorphone 0.5 MG/0.5 ML SYRINGE IVP PRN ×5 (04:34→20:56)
[2020-05-01] MEDS: SODIUM CHLORIDE 0.9% 1,000 ML IV SCH ×2 (05:58→08:39)
[2020-05-01] MEDS: NITROGLYCERIN OINT 1 INCH/GM PACKET TOPICAL SCH ×3 (06:13→11:08)
[2020-05-01 06:31] LABS: HCT 26.3 % (39.0-53.0); HGB 8.5 gm/dL (13.0-17.5); Hypochromasia Moderate; MCH 32.4 pg (25.0-35.0); MCHC 32.2 g/dL (31.0-37.0); MCV 100.7 fL (80.0-100.0); Macrocytosis Slight; Mean Platelet Volume 14.7; Platelet Count 230 k/uL (150-450); RBC 2.61 m/uL (4.30-5.90); RDW 13.5 % (11.5-15.5); WBC 7.1 k/uL (3.8-10.6)
[2020-05-01 06:42] LABS: African American GFR (CKD) >90 (>60 ml/min/1.73 sqM); Anion Gap 5 mmol/L; Blood Urea Nitrogen 6 mg/dL (9-20); Calcium 9.1 mg/dL (8.4-10.2); Carbon Dioxide 23 mmol/L (22-30); Chloride 107 mmol/L (98-107); Glucose 84 mg/dL (74-99); Non-African American GFR(CKD) >90 (>60 ml/min/1.73 sqM); Potassium 4.4 mmol/L (3.5-5.1); Sodium 135 mmol/L (137-145)
[2020-05-01 07:22] LABS: Band Neutrophils % 2 %; Lymphocytes # (M) 0.92 k/uL (1.0-4.8); Monocytes # (M) 1.07 k/uL (0-1.0); Neutrophils % (M) 70 %; Nucleated Red Blood Cells 0 /100 WBC (0-0); Total Cells Counted 100
[2020-05-01] MEDS ORDERED: fentaNYL (PF) 50 MCG/ML 2 ML AMP ONE (07:26)
[2020-05-01] MEDS ORDERED: PROPOFOL 10 MG/ML 20 ML VIAL IV ONE (07:26)
[2020-05-01] MEDS ORDERED: LIDOCAINE 1% INJ 10MG/ML (20 ML MDV) ONE (07:26)
[2020-05-01] MEDS ORDERED: MIDAZOLAM 2 MG/2 ML VIAL ONE (07:26)
[2020-05-01] MEDS ORDERED: IV FLUID CONTINUATION 1,000 ML IV ONE (07:26)
--- NOTE | 2020-05-01 07:43 | P.PCN ---
Date of Procedure: 05/01/20 Procedure(s) Performed: BRIEF HISTORY: Patient is a 59-year-old, pleasant, male, admitted to the hospital with chest pain and intermittent dark colored stools for the last 1 week duration. Hemoglobin was 7.1 g/dL requiring 1 unit of blood transfusion. He recently had cardiac catheterization with stent placement and since then has been on Reglan 10 aspirin 2 weeks ago. He scheduled for an upper endoscopy to evaluate source of bleeding. PROCEDURE PERFORMED: Esophagogastroduodenoscopy with biopsy. PREOPERATIVE DIAGNOSIS: Anemia/black tarry stools of 1 week duration. IV sedation per anesthesia. PROCEDURE: After informed consent was obtained, the patient was brought into the endoscopy unit. IV sedation was administered by Anesthesia under continuous monitoring. Initially the Olympus GIF-140 video endoscope was inserted into the mouth. Esophagus intubated without any difficulty. It was gradually advanced into the stomach and duodenum and carefully examined. The bulb and the second part of the duodenum appeared normal. The scope at this time was withdrawn to the stomach, adequately insufflated with air, and upon careful examination, mucosa of the antrum, body, cardia and the fundus appeared normal. The scope was then withdrawn into the esophagus. The GE junction was located at 39 cm from the incisors. The esophagus appeared normal. There were no erosions or ulcerations seen and the patient tolerated the procedure well. IMPRESSION: 1. Mild antral gastritis. 2. No evidence of esophagitis or peptic ulcer disease. RECOMMENDATIONS: The findings of this examination were discussed with the patient. He will be started on a heart healthy diet. Continue Protonix 40 mg daily..
[2020-05-01] MEDS: FOLIC ACID 1 MG TAB PO SCH (08:43)
[2020-05-01] MEDS: PANTOPRAZOLE 40 MG/10 ML VIAL IV SCH (08:43)
[2020-05-01] MEDS: THIAMINE 100 MG TAB PO SCH (08:43)
[2020-05-01] MEDS: HYDROCHLOROTHIAZIDE 25 MG TAB PO SCH (08:43)
[2020-05-01] MEDS: VALSARTAN 160 MG TAB PO SCH (08:43)
--- NOTE | 2020-05-01 12:48 | P.PN ---
Subjective This is Nancy Terry PA-C dictating a progress note on this patient The patient was interviewed and examined by me as well as by Dr. Gandhi Case discussed with Dr. Gandhi and he agrees with the plan of care HPI/interval history Patient is a 59-year-old male with a history of CAD status post stenting who presented with complaints of dyspnea and chest discomfort. He had dark tarry stools for the past week as well as exertional dyspnea and burning chest discomfort. He was found to have significant drop in his hemoglobin from around 11-13 at baseline down to 8.1. He did receive 1 blood transfusion and his hemoglobin is currently 8.5. He underwent an EGD which showed mild antral gastritis, no evidence of esophagitis or peptic ulcer disease. He should seen and examined resting in bed. He has not had any more bowel movements yet. He states he feels better after receiving the blood transfusion. He denies any chest pain or shortness of breath but he has not been walking around exerting himself much. He continues to complain of left knee pain. EXAMINATION Patient is afebrile, pulse in the 50s, respirations 18, blood pressure 112/54, oxygen saturation 98% on room air Patient seen and examined resting in bed, does not appear to be in any acute distress Lungs are clear to auscultation bilaterally Heart is regular, normal S1-S2, soft systolic murmur audible No JVD Extremities warm, no edema REVIEW OF LABS, ECG Echocardiogram showed EF 60-65% Hemoglobin 8.5, WBC 7.1, platelets 230, potassium 4.4, BUN 6, creatinine 0.9 Troponins negative 3 IMPRESSION / ASSESSMENT: #1 symptomatic anemia secondary to acute GI bleed, status post blood transfusion, status post EGD showing mild antral gastritis #2 CAD status post recent stenting, dual antiplatelet therapy on hold secondary to above #3 hypertension #4 dyslipidemia PLAN: Will resume Plavix when okay with GI Continue holding aspirin Continue statins Continue to monitor hemoglobin and for further bleeding Objective - Vital Signs Vital signs: Vital Signs Temp 97.6 F 05/01/20 11:36 Pulse 56 L 05/01/20 11:36 Resp 18 05/01/20 11:36 BP 112/54 05/01/20 11:36 Pulse Ox 98 05/01/20 11:36 Intake & Output 0605/01/20 05/01/20 18:59 06:59 18:59 Intake Total 310 780 50 Output Total 175 Balance 310 605 50 Weight 76.7 kg 78.5 kg Intake: IV 50 Intake, IV Titration 600 Amount Sodium Chloride 0.9% 1, 600 000 ml @ 75 mls/hr IV . [id number] LOLA Rx#:[id number] Oral 180 Blood Product 310 Rc As-1 Unit 310 [id number] Output: Urine 175 Other: # Voids 1 - Labs CBC & Chem 7: 05/01/20 05:44 05/01/20 05:44 Labs: Abnormal Lab Results - Last 24 Hours (Table) 04/30/20 04/30/20 05/01/20 Range/Units 12:10 14:03 05:44 RBC 2.17 L 2.61 L (4.30-5.90) m/uL Hgb 7.1 L 8.5 L (13.0-17.5) gm/dL Hct 22.5 L 26.3 L (39.0-53.0) % MCV 103.8 H 100.7 H (80.0-100.0) fL Lymphocytes # (Manual) 0.92 L (1.0-4.8) k/uL Monocytes # (Manual) 1.07 H (0-1.0) k/uL Sodium (137-145) mmol/L BUN (9-20) mg/dL Crossmatch See Detail 05/01/20 Range/Units 05:44 RBC (4.30-5.90) m/uL Hgb (13.0-17.5) gm/dL Hct (39.0-53.0) % MCV (80.0-100.0) fL Lymphocytes # (Manual) (1.0-4.8) k/uL Monocytes # (Manual) (0-1.0) k/uL Sodium 135 L (137-145) mmol/L BUN 6 L (9-20) mg/dL Crossmatch
[2020-05-01] MEDS: ATORVASTATIN 80 MG TAB PO SCH (20:56)
--- NOTE | 2020-05-02 00:19 | PN ---
PROGRESS NOTE DATE OF SERVICE: 05/01/2020 This 59-year-old gentleman admitted with chest pain is being closely monitored. Patient also has features of GI bleed also. Patient underwent EGD by Dr. Begum from gastroenterology today. The EGD showed mild antral gastritis. No evidence of esophagitis or peptic ulcer disease. Protonix is being continued. No chest pain or palpitation. After transfusion, hemoglobin is today 8.5, which is stable. PHYSICAL EXAMINATION: On exam, alert and oriented x3. Pulse is 56, blood pressure 105/71, respiration 18, temperature 97.5, pulse ox 99% on room air. HEENT: Conjunctivae normal. NECK: No jugular venous distention. CARDIOVASCULAR: S1, S2 muffled. RESPIRATORY: Breath sounds diminished at the bases. A few rhonchi, no crackles. ABDOMEN: Soft, nontender. No mass palpable. LEGS: No edema. No swelling. NERVOUS SYSTEM: No focal deficits. LABS: WBC 7.1, hemoglobin is 8.5. Sodium 135. ASSESSMENT: 1. Chest pain, possible unstable angina. 2. History of recent cardiac catheterization, coronary artery disease with acute non- [id number] myocardial infarction, stenting of the mid LAD and mid RCA. 3. Acute gastrointestinal bleed with acute blood loss anemia. 4. EGD showing only mild gastritis and no evidence of peptic ulcer disease. 5. Status post blood transfusion. 6. Increased MCV. 7. Previous history of gastrointestinal bleed. 8. Gastroesophageal reflux disease. 9. Hypertension. 10.Hyperlipidemia. 11.History of degenerative joint disease. 12.History of alcoholism. 13.History of rectal bleeding. 14.History of pancreatitis. 15.Cervical degenerative joint disease. 16.History of cholecystectomy. RECOMMENDATIONS AND DISCUSSION: Recommend to continue current medications. Continue with monitoring and symptomatic treatment. Repeat labs. We will closely monitor. Otherwise Plavix per Cardiology. Repeat hemoglobin. Increase ambulation. Dr. Yang will follow tomorrow. This patient will require further evaluation outpatient with serial hemoglobins. If the hemoglobin drops, the patient might be a candidate for further testing including colonoscopy and capsule enteroscopy and as well as Gastroenterology evaluation in the outpatient setting. Further recommendations to follow. MMODL / IJN: [id number] /
[2020-05-02] MEDS: HYDROmorphone 0.5 MG/0.5 ML SYRINGE IVP PRN ×3 (01:02→09:36)
[2020-05-02] MEDS: NITROGLYCERIN OINT 1 INCH/GM PACKET TOPICAL SCH ×2 (02:22→08:51)
[2020-05-02] MEDS: SODIUM CHLORIDE 0.9% 1,000 ML IV SCH (06:46)
[2020-05-02 07:53] LABS: African American GFR (CKD) >90 (>60 ml/min/1.73 sqM); Anion Gap 6 mmol/L; Blood Urea Nitrogen 10 mg/dL (9-20); Carbon Dioxide 25 mmol/L (22-30); Chloride 105 mmol/L (98-107); Glucose 83 mg/dL (74-99); Non-African American GFR(CKD) 88 (>60 ml/min/1.73 sqM); Potassium 4.5 mmol/L (3.5-5.1); Sodium 136 mmol/L (137-145)
[2020-05-02 08:10] LABS: Basophils % (A) 1 %; Eosinophils # (A) 0.3 k/uL (0-0.7); Eosinophils % (A) 5 %; HCT 26.7 % (39.0-53.0); HGB 8.7 gm/dL (13.0-17.5); Hypochromasia Slight; Lymphocytes # (A) 2.2 k/uL (1.0-4.8); Lymphocytes % (A) 32 %; MCH 32.8 pg (25.0-35.0); MCHC 32.7 g/dL (31.0-37.0); MCV 100.2 fL (80.0-100.0); Mean Platelet Volume 14.5; Monocytes # (A) 0.5 k/uL (0-1.0); Monocytes % (A) 8 %; Neutrophils # (A) 3.4 k/uL (1.3-7.7); Neutrophils % (A) 50 %; Platelet Count 181 k/uL (150-450); RBC 2.66 m/uL (4.30-5.90); RDW 13.5 % (11.5-15.5); WBC 6.9 k/uL (3.8-10.6)
[2020-05-02] MEDS: THIAMINE 100 MG TAB PO SCH (08:41)
[2020-05-02] MEDS: PANTOPRAZOLE 40 MG/10 ML VIAL IV SCH (08:41)
[2020-05-02] MEDS: VALSARTAN 160 MG TAB PO SCH (08:41)
[2020-05-02] MEDS: FOLIC ACID 1 MG TAB PO SCH (08:41)
[2020-05-02] MEDS: HYDROCHLOROTHIAZIDE 25 MG TAB PO SCH (08:41)
[2020-05-02 08:53] VITALS: RESP 16
[2020-05-02] MEDS ORDERED: CLOPIDOGREL 75 MG TAB PO SCH (09:00)
--- NOTE | 2020-05-02 10:52 | P.PN ---
Subjective Progress Note Date: 05/02/20 This a pleasant 5-year-old gentleman with history of CAD, status post stenting of the RCA and LAD in April 14 of this year. Has been complaining of dark tarry stools for the past week as well as exertional dyspnea and chest discomfort. Was found to have significant drop in his hemoglobin from around 11-13 at baseline down to 7.1. She did receive 1 unit packed red blood cells with improvement in his symptoms. He underwent an EGD which showed mild antral gastritis, no evidence of esophagitis or peptic ulcer disease. Patient has been initiated on Plavix. Hemoglobin stable at 8.7. Denies any chest discomfort or shortness of breath at this time. Continues to complain of left knee pain. Objective - Vital Signs Vital signs: Vital Signs Temp 98.2 F 05/02/20 08:00 Pulse 48 L 05/02/20 08:00 Resp 16 05/02/20 08:00 BP 90/52 05/02/20 08:00 Pulse Ox 100 05/02/20 08:00 Intake & Output 05/01/20 05/02/20 05/02/20 18:59 06:59 18:59 Intake Total 50 240 75 Balance 50 240 75 Weight 79.4 kg Intake: IV 50 Intake, IV Titration 75 Amount Sodium Chloride 0.9% 1, 75 000 ml @ 75 mls/hr IV . [id number] Rx#:[id number] Oral 240 Other: Voiding Method Toilet Toilet # Voids 1 - Exam PHYSICAL EXAMINATION: HEENT: Head is atraumatic, normocephalic. Pupils equal, round. Neck is supple. There is no elevated jugular venous pressure. HEART EXAMINATION: Heart sounds regular, S1 and S2 with a systolic murmur. CHEST EXAMINATION: Lungs are clear to auscultation. No chest wall tenderness is noted on palpation or with deep breathing. ABDOMEN: Soft, nontender. Bowel sounds are heard. No organomegaly noted. EXTREMITIES: 2+ peripheral pulses with no evidence of peripheral edema and no calf tenderness noted. NEUROLOGIC patient is awake, alert and oriented x3. . - Labs CBC & Chem 7: 05/02/20 06:25 05/02/20 06:25 Labs: Abnormal Lab Results - Last 24 Hours (Table) 05/02/20 05/02/20 Range/Units 06:25 06:25 RBC 2.66 L (4.30-5.90) m/uL Hgb 8.7 L (13.0-17.5) gm/dL Hct 26.7 L (39.0-53.0) % MCV 100.2 H (80.0-100.0) fL Sodium 136 L (137-145) mmol/L Assessment and Plan Assessment: #1 symptomatic anemia secondary to GI bleed, status post blood transfusion, status post EGD showing mild antral gastritis, hemoglobin stable #2 CAD status post recent stenting patient has been reinitiated on Plavix, aspirin remains on hold #3 hypertension #4 dyslipidemia Plan: From sld educational aide perspective, aspirin 81 mg by mouth daily when okay with GI. Patient is stable for discharge home from my standpoint. He will follow-up in t he office with Dr. Begum. RUSSIAN RUBBER note has been reviewed, I agree with a documented findings and plan of care. Patient was seen and examined.
[2020-05-02 11:54] VITALS: BMI 23.7
[2020-05-02 12:10] LABS: Large Platelets Present
[2020-05-02 12:20] VITALS: BP 107/65; PULSE 55; TEMP 98
--- NOTE | 2020-05-02 13:04 | P.DS ---
Providers Date of admission: 05/01/20 09:50 Expected date of discharge: 05/02/20 Attending physician: Jeffry Yang Consults: 04/29/20 15:23 Consult Physician Routine Consulting Provider: Kvng Begum Consult Reason/Comments: chest pain Do you want consulting provider notified?: Yes Consult Physician Routine Consulting Provider: Dano Whitehead Reason/Comments: gi bleed Do you want consulting provider notified?: Yes Primary care physician: Jeffry Yang Hospital Course: Final Diagnoses: Acute chest pain, possible unstable angina Recent cardiac catheterization, CAD with acute non-STEMI RI, stenting of the mid LAD and mid RCA Acute GI bleed with acute symptomatic blood loss anemia, status post transfusion of packed RBCs. Status post EGD reportedly mild antral gastritis. No evidence of peptic ulcer disease or esophagitis Increased MCV History of alcoholism, drink up to 2 pints, daily, recently stopped Prior history of Gi Bleed Gastroesophageal Reflux Disease Hypertension Hyperlipidemia Cervical degenerative joint disease Chronic renal failure stage III Chronic pancreatitis Nicotine dependence Hospital course: This a 59-year-old with recent NSTEMI, cardiac catheterization with stenting admitted with acute GI bleed, chest pain and multiple other medical issues. Evaluated/treated by GI, cardiology. Underwent EGD reportedly mild antral gastritis with no evidence of active bleed. Maintained on PPI. Brilenta discontinued. Anticoagulated on Plavix currently. Hemoglobin remained stable at 8.7. Cleared by all consults for discharge. patient will be discharged today on both Plavix and aspirin pending clearance last recommendations from GI. The impression and plan of care has been dictated as directed. : I performed a history and examination of this patient, discussed the same with the dictator. I agree with the dictator's note ,documented as a scribe. Any additional findings or plans will be noted. Patient Condition at Discharge: Stable Plan - Discharge Summary New Discharge Prescriptions: New Clopidogrel [Plavix] 75 mg PO DAILY #30 tab Continue Valsartan/Hydrochlorothiazide [Diovan Hct 160-12.5 mg Tab] 1 tab PO DAILY Omeprazole [PriLOSEC] 40 mg PO HS Aspirin 81 mg PO DAILY #30 chew Atorvastatin [Lipitor] 80 mg PO HS #30 tab Nitroglycerin Sl Tabs [Nitrostat] 0.4 mg SUBLINGUAL Q5M PRN #100 tab PRN Reason: Chest Pain Folic Acid 1 mg PO DAILY #30 tablet Thiamine [Vitamin B-1] 100 mg PO DAILY #30 tablet Discontinued Ticagrelor [Brilinta] 90 mg PO BID #60 tab Discharge Medication List Valsartan/Hydrochlorothiazide [Diovan Hct 160-12.5 mg Tab] 1 tab PO DAILY 11/09/19 [History] Omeprazole [PriLOSEC] 40 mg PO HS 04/12/20 [History] Aspirin 81 mg PO DAILY #30 chew 04/15/20 [Rx] Atorvastatin [Lipitor] 80 mg PO HS #30 tab 04/15/20 [Rx] Folic Acid 1 mg PO DAILY #30 tablet 04/15/20 [Rx] Nitroglycerin Sl Tabs [Nitrostat] 0.4 mg SUBLINGUAL Q5M PRN #100 tab 04/15/20 [Rx] Thiamine [Vitamin B-1] 100 mg PO DAILY #30 tablet 04/15/20 [Rx] Clopidogrel [Plavix] 75 mg PO DAILY #30 tab 05/02/20 [Rx] Follow up Appointment(s)/Referral(s): Jeffry Yang DO [Primary Care Provider] - 05/05/20 11:40 am Puja Begum MD [STAFF PHYSICIAN] - 2 Weeks Kvng Begum MD [STAFF PHYSICIAN] - 05/24/20 2:00 pm Ambulatory/Diagnostic Orders: Complete Blood Count w/diff [LAB.AMB] Time Frame: 3 Days, Location: None Se lected Patient Instructions/Handouts: Chest Pain (DC), Gastritis (DC)
--- NOTE | 2020-05-02 13:46 | PN ---
PROGRESS NOTE DATE OF SERVICE: 05/02/2020 Patient is a 59-year-old pleasant white male admitted to hospital with chest pain, shortness of breath, and black tarry stools. She underwent an upper endoscopy yesterday that showed evidence of mild antral gastritis and no evidence of peptic ulcer disease. He was restarted back on aspirin and Plavix. Today he is doing good. He denies any symptoms. Hemoglobin stable at 8.7 g/dL. He received one unit of PRBC transfusion during this hospitalization. PHYSICAL EXAMINATION: Appears comfortable, in no apparent distress. VITAL SIGNS: Stable. Blood pressure is 107/65, pulse rate 55, temperature 98. HEENT: Examination unremarkable, conjunctivae are pink, sclerae nonicteric, oral cavity no lesions. NECK: No JVD or lymph node enlargement. CHEST: Clear to auscultation. HEART: Regular rate and rhythm. ABDOMEN: Soft, bowel sounds are positive, no organomegaly. EXTREMITIES: No pedal edema. SKIN: No rashes. NEUROLOGIC: Alert and oriented x3. No focal deficits. LABS: WBC 6.9, hemoglobin 8.7, platelets normal. Basic metabolic panel is within normal limits. IMPRESSION: 1. Anemia, black tarry stools of 3 day's duration. Patient was on aspirin and Plavix which has been on hold. He had an EGD yesterday that showed antral erosive gastritis. No further bleeding. Hemoglobin 8.7, status post one unit of blood transfusion. 2. Recent IA, status post angioplasty with stent placement 2 weeks ago on aspirin and Plavix which has been resumed yesterday. RECOMMENDATION: 1. Continue Protonix 40 mg daily. 2. Resume aspirin and Plavix. 3. He can be discharged home with outpatient followup in 3-4 weeks. Thank you for this consultation. MMODL / IJN: [id number] /
== END 2020-05-02 13:10 | disposition home or self-care (01) | DRG 378 ==
LOC: EC 12:42 → 3SCARD 15:44 → OBSVTOIN 05-01 09:50
PROVIDERS: ADMIT Family Medicine; ATTEND Family Medicine
PROC: 30233N1 Transfusion of Nonautologous Red Blood Cells into Peripheral Vein, Percutaneous Approach (ICD-10-PCS; 2020-04-30)
PROC: 0DB78ZX Excision of Stomach, Pylorus, Via Natural or Artificial Opening Endoscopic, Diagnostic (ICD-10-PCS; principal; 2020-05-01 07:30)
DX: K29.51 Unspecified chronic gastritis with bleeding (principal); I25.110 Atherosclerotic heart disease of native coronary artery with unstable angina pectoris; D62 Acute posthemorrhagic anemia; E87.2 Acidosis; K86.1 Other chronic pancreatitis; F10.20 Alcohol dependence, uncomplicated; N18.3 Chronic kidney disease, stage 3 (moderate); I12.9 Hypertensive chronic kidney disease with stage 1 through stage 4 chronic kidney disease, or unspecified chronic kidney disease; J45.909 Unspecified asthma, uncomplicated; K21.9 Gastro-esophageal reflux disease without esophagitis; E78.5 Hyperlipidemia, unspecified; M25.562 Pain in left knee; R00.1 Bradycardia, unspecified; M50.30 Other cervical disc degeneration, unspecified cervical region; M19.90 Unspecified osteoarthritis, unspecified site; F17.200 Nicotine dependence, unspecified, uncomplicated; Z71.6 Tobacco abuse counseling; I25.2 Old myocardial infarction; Z79.82 Long term (current) use of aspirin; Z79.02 Long term (current) use of antithrombotics/antiplatelets; Z79.899 Other long term (current) drug therapy; Z87.19 Personal history of other diseases of the digestive system; Z95.5 Presence of coronary angioplasty implant and graft; Z90.49 Acquired absence of other specified parts of digestive tract; Z98.890 Other specified postprocedural states; Z82.49 Family history of ischemic heart disease and other diseases of the circulatory system; Z83.3 Family history of diabetes mellitus
CPT/HCPCS: 36415; 43239; 71045; 71275; 80048; 80053; 82553; 83880; 84484; 85025; 85379; 86850; 86900; 86901; 86920; 88305; 93005; 93306; 93970; 96374; 96375; 99285

== ENCOUNTER → 2020-09-01 | Outpatient (CLI) | payer MEDICARE, OTHER ==
--- NOTE | 2020-09-01 13:03 | CONS ---
CONSULTATION DATE OF SERVICE: 09/01/2020 A 59-year-old gentleman who has been evaluated in the Sleep Center for obstructive sleep apnea-hypopnea syndrome. PAST MEDICAL HISTORY: Positive for hypertension, coronary artery disease diagnosed recently. History of rectal bleed, pancreatitis, neck problems. PAST SURGICAL HISTORY: Recent stent insertion. Cal fundoplication surgery. SOCIAL HISTORY: Patient mentioned that he did not use any PAP in 6 months. History of overusing ETOH. FAMILY HISTORY: Diabetes mellitus, hypertension. REVIEW OF SYSTEMS: Awakenings from sleep. Witnessed episodes of stopped breathing during the sleep. PHYSICAL EXAM: An gentleman without distress, BP 121/74, HR 56, RR 16, height 5, 10, weight 178, BMI 25.5, temperature 97.5, oxygen saturation at room air 100%. OROPHARYNX: Extremely low position of soft palate, Mallampati 4. NECK: Supple, no JVD. Thyroid is not palpable. LUNGS: Clear to percussion and to auscultation. Good air exchange. No wheezing or rhonchi. HEART: S1, S2 regular. No murmurs, gallops, or rubs. ABDOMEN: Soft and nontender. Bowel sounds are present. No organomegaly appreciated. EXTREMITIES: No clubbing or cyanosis. ASSURANCE ASSISTANT: Awake, alert, and oriented X3. Cranial nerves 2 to 7 intact. There is no fasciculation or atrophy. noted. No focal deficits observed. IMPRESSION: 1. Obstructive sleep apnea-hypopnea syndrome in severe range by previous sleep study. Apnea-hypopnea index 33. The patient did not use his CPAP equipment for 8 months because he did not feel comfortable with it. Extremely low position of soft palate, snoring. 2. Hypertension. 3. Coronary artery disease, status post stent insertion. 4. History of rectal bleed. 5. History of pancreatitis. 6. History of neck problems. PLAN: 1. Repeat CPAP titration for evaluation of effective pressure. Check situation with mask and for Medicare requirements. 2. Sleep hygiene with regular time in bed for at least 7-1/2 to 8 hours. 3. No driving if feeling sleepiness. 4. Watching weight. Thank you very much for allowing me to participate in the management of your patient. Sincerely, Murali Do MD, PhD, FAASM Diplomat of [place] [employer] [place] [employer] [facility] [place] MMODL / IJN: [id number] /
== END | disposition home or self-care (01) ==
LOC: SLEEP 10:31
PROVIDERS: ATTEND Internal Medicine
DX: G47.33 Obstructive sleep apnea (adult) (pediatric) (principal); Z53.8 Procedure and treatment not carried out for other reasons

== ENCOUNTER → 2020-09-29 | Outpatient (CLI) | payer MEDICARE, OTHER ==
--- NOTE | 2020-09-29 09:22 | CT ---
EXAMINATION TYPE: CT cervical spine wo con DATE OF EXAM: 09/29/2020 COMPARISON: None HISTORY: 60-year-old male fell 2 months ago. Pain along the right side of neck. M48.02, stenosis TECHNIQUE: Contiguous axial scanning of the cervical spine without IV contrast. Coronal and sagittal reconstructions performed. CT DLP: 460.3 mGycm Automated exposure control for dose reduction was used. FINDINGS: No craniocervical junction abnormality, predental space widening, or prevertebral soft tissue swellin g. Post surgical change of C4-C7 ACDF with a large corpectomy. There is some fragmentation of the bone g raft material but areas of partial bony bridging is present throughout. Hypertrophic facet arthropathy below the fusion at C7-T1. Alignment is maintained. Disc osteophyte complex at C7-T1 may minimally narrow the spinal canal. Limited assessment due to met al artifact. Small posterior disc bulge at C3-C4 above the fusion also contribute to minimal spinal c anal narrowing. AP canal dimensions at both of these levels are 1.0 and 1.1 cm, respectively. No acute fracture of the cervical spine. At C2-C3, there is moderate left neural foraminal stenosis. At C3-C4, moderate to severe bilateral neuroforaminal stenosis. At C4-C5, moderate to severe right and mild left neural foraminal stenosis. At C5-C6, moderate bilateral neural foraminal stenosis. At C6-C7, moderate to severe right and mild left neural foraminal stenosis. IMPRESSION: 1. STATUS POST C4-C7 ACDF. LARGE INTERVENING CORPECTOMY. THERE ARE SMALL AREAS OF PARTIAL BONY BRIDGI NG THROUGHOUT THE LEVELS OF FUSION FUSION AND OTHER AREAS SHOW SCLEROTIC MARGINS SUGGESTING AREAS OF INCOMPLETE INCORPORATION OF THE BONE GRAFT MATERIAL. 2. MINIMAL SPINAL CANAL NARROWING BOTH ABOVE AND BELOW THE FUSION AT C3-C4 AND C7-T1. 3. HYPERTROPHIC FACET AND UNCOVERTEBRAL JOINT ARTHROPATHY CONTRIBUTING TO VARIABLE NEUROFORAMINAL AURELIANO NOSES THROUGHOUT THE CERVICAL SPINE ABOVE.
== END | disposition home or self-care (01) ==
LOC: RADCTMAIN 07:18
PROVIDERS: ATTEND Neurological Surgery
DX: M48.02 Spinal stenosis, cervical region (principal); M99.71 Connective tissue and disc stenosis of intervertebral foramina of cervical region; Z98.1 Arthrodesis status
CPT/HCPCS: 72125

== ENCOUNTER → 2021-01-27 | Outpatient (CLI) | payer MEDICARE, OTHER ==
--- NOTE | 2021-01-27 08:11 | CT ---
EXAMINATION TYPE: CT sinus wo con DATE OF EXAM: 01/27/2021 COMPARISON: NONE HISTORY: Chronic sinusitis per order. Headaches and facial pain for [address] DLP: 654.80 mGycm. Automated Exposure Control for Dose Reduction was Utilized. TECHNIQUE: CT scan of the sinuses is performed without contrast, axial images are obtained, coronal r eformatted images are also reviewed. FINDINGS: Mild mucosal thickening in the maxillary sinuses bilaterally. There is completely opacified left posterior ethmoid sinus could reflect large polyp or complete fluid filled. Remainder paranasal sinuses clear without suspicious opacification or air-fluid levels. The ostiomeatal complex appears occluded bilaterally by antral mucosal thickening. Nasal septum slightly deviated to right of midlin e. Visualized portion of mastoid air cells show no abnormal opacification. Some patchy seroma left inte rnal auditory canal axial image 21 noted. The globes are intact bilaterally. Visualized brain parenc hyma shows [id number] diffuse cerebral atrophy and chronic small vessel ischemic changes. IMPRESSION: Mild chronic maxillary sinus disease. Possible acute posterior left ethmoid sinusitis. Oc clusion of bilateral ostiomeatal complexes.
== END | disposition home or self-care (01) ==
LOC: RADCTMAIN 07:14
PROVIDERS: ATTEND Otolaryngology
DX: J32.0 Chronic maxillary sinusitis (principal)
CPT/HCPCS: 70486

== ENCOUNTER 2021-09-25 22:29 | Emergency (ER) | payer MEDICARE, OTHER ==
--- NOTE | 2021-09-25 23:14 | XR ---
EXAMINATION TYPE: XR chest 2V DATE OF EXAM: 09/25/2021 COMPARISON: 04/29/2020 HISTORY: Cough TECHNIQUE: FINDINGS: There is no heart failure. Lungs are clear of consolidation. There is some coarsening of th e lung markings at the lung bases. There are no hilar masses. There is cervical spine fusion surgery. There is no pleural effusion. Heart size is fairly normal. Bony thorax is intact. IMPRESSION: There is increased interstitial lung markings in the left lower lobe compared to last exa m and could be mild interstitial pneumonia.
--- NOTE | 2021-09-26 00:13 | ED ---
URI HPI - General Chief Complaint: Upper Respiratory Infection Stated Complaint: Cough,Congestion Time Seen by Provider: 09/25/21 23:29 Source: patient, RN notes reviewed Mode of arrival: ambulatory Limitations: no limitations - History of Present Illness Initial Comments: This a 61-year-old male presents emergency Department chief complaint of cough congestion. Patient states he's been sick for 1 week. Patient states that the cough, bodyaches has worsened last 3 days. Patient reports fever, chills. Patient states she's had prior vaccine for COVID-19. Patient denies any chest pain, pleuritic pain denies nausea and diarrhea constipation patient was no complaints. - Related Data Home Medications Medication Instructions Recorded Confirmed Valsartan/Hydrochlorothiazide 1 tab PO DAILY 11/09/19 04/29/20 [Diovan Hct 160-12.5 mg Tab] Omeprazole [PriLOSEC] 40 mg PO HS 04/12/20 04/29/20 Previous Rx's Medication Instructions Recorded Aspirin 81 mg PO DAILY #30 chew 04/15/20 Atorvastatin [Lipitor] 80 mg PO HS #30 tab 04/15/20 Folic Acid 1 mg PO DAILY #30 tablet 04/15/20 Nitroglycerin Sl Tabs [Nitrostat] 0.4 mg SUBLINGUAL Q5M PRN #100 tab 04/15/20 Thiamine [Vitamin B-1] 100 mg PO DAILY #30 tablet 04/15/20 Clopidogrel [Plavix] 75 mg PO DAILY #30 tab 05/02/20 Allergies Allergy/AdvReac Type Severity Reaction Status Date / Time No Known Allergies Allergy Verified 09/25/21 22:34 Review of Systems ROS Statement: Those systems with pertinent positive or pertinent negative responses have been documented in the HPI. ROS Other: All systems not noted in ROS Statement are negative. Past Medical History Past Medical History: Coronary Artery Disease (CAD), GERD/Reflux, GI Bleed, Hyperlipidemia, Hypertension, Osteoarthritis (OA) Additional Past Medical History / Comment(s): alcholism , rectal bleed 09/2014, pancreatitis, Cervical disk disease on the neck fused 3 disks, gringing, arthri tis in neck History of Any Multi-Drug Resistant Organisms: None Reported Past Surgical History: Cholecystectomy, Heart Catheterization With Stent, Hernia Repair Additional Past Surgical History / Comment(s): MAUREEN FUNDLAPLASTY, EGDs and colonoscopies with benign polypectomies, TOOTH EXTRACTIONS, gallbladder out sep 2020, bunion R foot removed Past Anesthesia/Blood Transfusion Reactions: No Reported Reaction Additional Past Anesthesia/Blood Transfusion Reaction / Comment(s): Pt has received blood without reaction. Date of Last Stent Placement:: 04/14/20 Past Psychological History: No Psychological Hx Reported Smoking Status: Current every day smoker Past Alcohol Use History: Occasional Past Drug Use History: None Reported - Past Family History Mother Family Medical History: No Reported History Additional Family Medical History / Comment(s): . Father Family Medical History: Diabetes Mellitus, Hypertension, Myocardial Infarction ([place]) Additional Family Medical History / Comment(s): Father at age 84 yrs. General Exam Limitations: no limitations General appearance: alert, in no apparent distress Head exam: Present: atraumatic, normocephalic, normal inspection Eye exam: Present: normal appearance, PERRL, EOMI. Absent: scleral icterus, conjunctival injection, periorbital swelling ENT exam: Present: normal exam, normal oropharynx, mucous membranes moist Neck exam: Present: normal inspection, full ROM. Absent: tenderness, menin gismus, lymphadenopathy Respiratory exam: Present: normal lung sounds bilaterally. Absent: respiratory distress, wheezes, rales, rhonchi, stridor Cardiovascular Exam: Present: regular rate, normal rhythm, normal heart sounds. Absent: systolic murmur, diastolic murmur, rubs, gallop, clicks GI/Abdominal exam: Present: soft, normal bowel sounds. Absent: distended, tenderness, guarding, rebound, rigid Course Vital Signs 09/25/21 22:31 Temperature 99 F Pulse Rate 99 Respiratory 18 Rate Blood Pressure 160/94 O2 Sat by Pulse 97 Oximetry Medical Decision Making - Medical Decision Making Patient's positive or COVID-19, vitals are stable. Patient did receive monoclonal antibodies and discharged in stable condition. - Lab Data Lab Results 09/25/21 Range/Units 22:36 Coronavirus (PCR) Detected A (Not Detectd) Disposition Clinical Impression: COVID-19 Disposition: HOME SELF-CARE Condition: Stable Instructions (If sedation given, give patient instructions): Coronavirus Disease 2019 (COVID-19) Additional Instructions: Please return to the Emergency Department if symptoms worsen or any other concerns. Is patient prescribed a controlled substance at d/c from ED?: No Referrals: Jeffry Yang DO [Primary Care Provider] - 1-2 days Time of Disposition: 00:13
[2021-09-26] MEDS ORDERED: CASIRIVIMAB (REGN10933) (EUA) 600 MG, IMDEVIMAB (REGN10987) (EUA) 600 MG in SODIUM CHLO... IVPB ONE (00:30)
[2021-09-26] MEDS ORDERED: SODIUM CHLORIDE 0.9% 50 ML IVPB ONE (00:30)
[2021-09-26 02:36] VITALS: RESP 18
[2021-09-26 03:12] VITALS: BP 136/78; PULSE 58; TEMP 98.3
== END 2021-09-26 02:50 | disposition home or self-care (01) ==
LOC: EC 22:29
DX: U07.1 COVID-19 (principal); I10 Essential (primary) hypertension; I25.10 Atherosclerotic heart disease of native coronary artery without angina pectoris; K21.9 Gastro-esophageal reflux disease without esophagitis; M19.90 Unspecified osteoarthritis, unspecified site; E78.5 Hyperlipidemia, unspecified; F17.200 Nicotine dependence, unspecified, uncomplicated; Z79.02 Long term (current) use of antithrombotics/antiplatelets; Z79.82 Long term (current) use of aspirin; Z79.899 Other long term (current) drug therapy; Z90.49 Acquired absence of other specified parts of digestive tract; Z83.3 Family history of diabetes mellitus; Z82.49 Family history of ischemic heart disease and other diseases of the circulatory system
CPT/HCPCS: 87635; 71046; 99283; 96365; Q0243

== ENCOUNTER → 2022-04-25 | Outpatient (CLI) | payer MEDICARE, OTHER ==
--- NOTE | 2022-04-25 12:23 | SFUN ---
SLEEP CENTER FOLLOW UP NOTE DATE OF SERVICE: 04/25/2022 This 61-year-old gentleman has been followed in Sleep Center for treatment of obstructive sleep apnea-hypopnea syndrome. The last time I saw this patient was about a year and a half ago. For the last year, the patient did not use his CPAP unit, explaining that he comfortable with the mask and he feels not comfortable with the pressure. [place] Sleepiness Scale today is 6. I checked his CPAP unit. Pressure is 8 cm of water. Usage is 2 nights for the last year, average 5.1 hours per night. Leak is 7 L/minute. Apnea-hypopnea index at that time was 3.1. CURRENT MEDICATIONS: Lipitor, Diovan. PHYSICAL EXAMINATION: GENERAL: Pleasant patient in no distress. VITAL SIGNS: BP 172/91, HR 54, RR 12, weight 194.6 pounds, height 5 feet 10 inches, BMI 27.8, temperature 96.8, oxygen saturation at room air 97%. HEENT: PERRLA, EOMI, evaluation of oropharynx showed tongue protrudes midline. Extremely low position of soft palate; Mallampati IV. NECK: Supple, no JVD. Thyroid is not palpable. LUNGS: Clear to percussion and to auscultation. Good air exchange. No wheezing or rhonchi. HEART: S1, S2 regular. No murmurs, gallops, or rubs. ABDOMEN: Soft and nontender. Bowel sounds are present. No organomegaly appreciated. EXTREMITIES: No clubbing or cyanosis. FULL STACK NET DEVELOPER: Awake, alert, and oriented X3. Cranial nerves 2 to 7 intact. There is no fasciculation or atrophy. noted. No focal deficits observed. IMPRESSION: 1. Obstructive sleep apnea-hypopnea syndrome in severe range by results of previous sleep study; apnea-hypopnea index 33. The patient has had difficulties using his CPAP equipment for the last year. 2. Hypertension. 3. Coronary artery disease, status post stent insertion. 4. History of rectal bleed. 5. History of pancreatitis. 6. History of neck problems. PLAN: 1. I changed the regimen in CPAP to automatic, range of the pressure 5 to 12. We will repeat the CPAP titration for re-evaluation of effective CPAP pressure at the present time because the patient could not use the machine to check pressure and to find proper mask. 2. I renewed the prescription for supplies, but you can put. 3. Sleep hygiene with regular time in bed for 7-1/2 to 8 hours. 4. No driving if feeling sleepiness. 5. Patient should use CPAP therapy every night for the whole night. Thank you very much for allowing me to participate in the management of your patient. Sincerely, Murali Do MD, PhD, FAASM Diplomat of [place] [employer] Sleep Medicine Board of [place] [employer] [facility] [place] MMCINDY / NELLIE: [id number] /
== END ==
LOC: SLEEP 10:32
PROVIDERS: ATTEND Internal Medicine
DX: G47.33 Obstructive sleep apnea (adult) (pediatric) (principal); Z99.89 Dependence on other enabling machines and devices; I10 Essential (primary) hypertension; I25.10 Atherosclerotic heart disease of native coronary artery without angina pectoris; Z95.5 Presence of coronary angioplasty implant and graft; Z87.39 Personal history of other diseases of the musculoskeletal system and connective tissue; Z87.19 Personal history of other diseases of the digestive system; Z79.899 Other long term (current) drug therapy

== ENCOUNTER → 2022-08-20 | Outpatient (CLI) | payer MEDICARE, OTHER | END | disposition home or self-care (01) | LOC: LABWHC1 11:08 | PROVIDERS: ATTEND Family Medicine | DX: Z01.812 Encounter for preprocedural laboratory examination (principal); Z20.822 Contact with and (suspected) exposure to COVID-19 | CPT/HCPCS: U0003; U0005 ==

== ENCOUNTER 2022-09-13 16:28 | Emergency (ER) | payer MEDICARE, OTHER ==
[2022-09-13 16:36] VITALS: RESP 16; TEMP 97.7
[2022-09-13] MEDS ORDERED: TRANEXAMIC ACID 1,000 MG/10 ML VIAL IV STA (17:08)
[2022-09-13] MEDS ORDERED: MORPHINE SULFATE 4 MG/ML SYRINGE IV STA (17:08)
--- NOTE | 2022-09-13 17:12 | ED ---
ENT HPI - General Chief complaint: ENT Stated complaint: Nose Bleed Time Seen by Provider: 09/13/22 17:00 Source: patient, family Mode of arrival: ambulatory Limitations: no limitations - History of Present Illness Initial comments: This patient is 62-year-old man who presents with complaint that he is having nosebleed. The patient had a couple of procedures within the past 2 weeks. He states that he had a sinus procedure at which time they noticed what they felt was a malignancy. He states that he had a resection about a week ago at [facility]. He states that he was doing fairly well until yesterday when he had a nosebleed that he was able to stop at home. Things recurred today and he was not able to stop the bleeding. They called his surgeon who recommended he go to the emergency department. Patient has not noted any symptoms of anemia, no lightheadedness, palpitations, chest pain, dyspnea or diaphoresis. MD complaint: epistaxis Onset/Timin -: hour(s) Location: nose Severity: moderate Consistency: constant Improves with: none Worsens with: none - Related Data Home Medications Medication Instructions Recorded Confirmed Valsartan/Hydrochlorothiazide 1 tab PO DAILY 11/09/19 04/29/20 [Diovan Hct 160-12.5 mg Tab] Omeprazole [PriLOSEC] 40 mg PO HS 04/12/20 04/29/20 Previous Rx's Medication Instructions Recorded Aspirin 81 mg PO DAILY #30 chew 04/15/20 Atorvastatin [Lipitor] 80 mg PO HS #30 tab 04/15/20 Folic Acid 1 mg PO DAILY #30 tablet 04/15/20 Nitroglycerin Sl Tabs [Nitrostat] 0.4 mg SUBLINGUAL Q5M PRN #100 tab 04/15/20 Thiamine [Vitamin B-1] 100 mg PO DAILY #30 tablet 04/15/20 Clopidogrel [Plavix] 75 mg PO DAILY #30 tab 05/02/20 Allergies Allergy/AdvReac Type Severity Reaction Status Date / Time No Known Allergies Allergy Verified 09/25/21 22:34 Review of Systems ROS Statement: Those systems with pertinent positive or pertinent negative responses have been documented in the HPI. ROS Other: All systems not noted in ROS Statement are negative. Constitutional: Denies: fever ENT: Reports: epistaxis Respiratory: Denies: cough, dyspnea Cardiovascular: Denies: chest pain, palpitations, syncope Gastrointestinal: Denies: abdominal pain, vomiting, diarrhea Skin: Denies: rash Neurological: Denies: headache, weakness Hematological/Lymphatic: Denies: easy bleeding Past Medical History Past Medical History: Coronary Artery Disease (CAD), GERD/Reflux, GI Bleed, H yperlipidemia, Hypertension, Osteoarthritis (OA) Additional Past Medical History / Comment(s): alcholism , rectal bleed 09/2014, pancreatitis, Cervical disk disease on the neck fused 3 disks, gringing, arthritis in neck History of Any Multi-Drug Resistant Organisms: None Reported Past Surgical History: Cholecystectomy, Heart Catheterization With Stent, Hernia Repair Additional Past Surgical History / Comment(s): MAUREEN FUNDLAPLASTY, EGDs and colonoscopies with benign polypectomies, TOOTH EXTRACTIONS, gallbladder out sep 2020, bunion R foot removed Past Anesthesia/Blood Transfusion Reactions: No Reported Reaction Additional Past Anesthesia/Blood Transfusion Reaction / Comment(s): Pt has received blood without reaction. Date of Last Stent Placement:: 04/14/20 Past Psychological History: No Psychological Hx Reported Smoking Status: Current every day smoker Past Alcohol Use History: Occasional Past Drug Use History: None Reported - Past Family History Mother Family Medical History: No Reported History Additional Family Medical History / Comment(s): . Father Family Medical History: Diabetes Mellitus, Hypertension, Myocardial Infarction ([place]) Additional Family Medical History / Comment(s): Father at age 84 yrs. General Exam Limitations: no limitations General appearance: alert, in no apparent distress Head exam: Present: atraumatic, normocephalic Eye exam: Present: normal appearance, PERRL, EOMI. Absent: scleral icterus, conjunctival injection Respiratory exam: Present: normal lung sounds bilaterally. Absent: respiratory distress, wheezes, rales, rhonchi, stridor Cardiovascular Exam: Present: regular rate, normal rhythm, normal heart sounds. Absent: systolic murmur, diastolic murmur, rubs, gallop Neurological exam: Present: alert Skin exam: Present: warm, dry, intact, normal color. Absent: rash Course Vital Signs 09/13/22 16:32 Temperature 97.7 F Pulse Rate 59 L Respiratory 16 Rate Blood Pressure 127/84 O2 Sat by Pulse 100 Oximetry Medical Decision Making - Lab Data Result diagrams: 09/13/22 18:01 Lab Results 09/13/22 09/13/22 Range/Units 18:01 18:01 WBC 7.7 (3.8-10.6) k/uL RBC 3.97 L (4.30-5.90) m/uL Hgb 13.0 (13.0-17.5) gm/dL Hct 39.1 (39.0-53.0) % MCV 98.7 (80.0-100.0) fL MCH 32.8 (25.0-35.0) pg MCHC 33.2 (31.0-37.0) g/dL RDW 12.6 (11.5-15.5) % Plt Count (150-450) k/uL MPV 13.0 Neutrophils % 67 % Lymphocytes % 22 % Monocytes % 5 % Eosinophils % 3 % Basophils % 0 % Neutrophils # 5.2 (1.3-7.7) k/uL Lymphocytes # 1.7 (1.0-4.8) k/uL Monocytes # 0.4 (0-1.0) k/uL Eosinophils # 0.2 (0-0.7) k/uL Basophils # 0.0 (0-0.2) k/uL Manual Slide Review Performed RBC Morphology Normal PT 10.2 (9.0-12.0) sec INR 0.9 (<1.2) APTT 23.7 (22.0-30.0) sec Disposition Clinical Impression: Epistaxis Disposition: HOME SELF-CARE Condition: Good Instructions (If sedation given, give patient instructions): Nosebleed (ED) Is patient prescribed a controlled substance at d/c from ED?: No Referrals: Jeffry Yang DO [Primary Care Provider] - 1-2 days
[2022-09-13] MEDS ORDERED: OXYMETAZOLINE 0.05% NASL SPRAY 1 SPRAY BOTTLE NASAL STA (17:13)
[2022-09-13] MEDS ORDERED: TRANEXAMIC ACID IN NACL,ISO-OS 1,000 MG in SALINE 1 100ML.BAG IVPB ONE (17:15)
[2022-09-13 18:10] LABS: Basophils % (A) 0 %; Eosinophils # (A) 0.2 k/uL (0-0.7); Eosinophils % (A) 3 %; HCT 39.1 % (39.0-53.0); Lymphocytes # (A) 1.7 k/uL (1.0-4.8); Lymphocytes % (A) 22 %; MCH 32.8 pg (25.0-35.0); MCHC 33.2 g/dL (31.0-37.0); MCV 98.7 fL (80.0-100.0); Monocytes # (A) 0.4 k/uL (0-1.0); Monocytes % (A) 5 %; Neutrophils # (A) 5.2 k/uL (1.3-7.7); Neutrophils % (A) 67 %; RBC 3.97 m/uL (4.30-5.90); RDW 12.6 % (11.5-15.5); WBC 7.7 k/uL (3.8-10.6)
[2022-09-13 18:34] LABS: INR 0.9 (<1.2); Partial Thromboplastin Time 23.7 sec (22.0-30.0); Prothrombin Time 10.2 sec (9.0-12.0)
[2022-09-13 19:17] LABS: RBC Morphology Normal
[2022-09-13 19:45] VITALS: BP 129/80; PULSE 65
== END 2022-09-13 19:45 | disposition home or self-care (01) ==
LOC: EC 16:28
DX: R04.0 Epistaxis (principal); I25.10 Atherosclerotic heart disease of native coronary artery without angina pectoris; K21.9 Gastro-esophageal reflux disease without esophagitis; E78.5 Hyperlipidemia, unspecified; I10 Essential (primary) hypertension; M19.90 Unspecified osteoarthritis, unspecified site; Z79.4 Long term (current) use of insulin; Z79.83 Long term (current) use of bisphosphonates
CPT/HCPCS: 36415; 85025; 85610; 85730; 99283; 96374; 96375; J2270

== ENCOUNTER → 2023-04-23 | Outpatient (CLI) | payer MEDICARE, OTHER ==
[2023-04-23 15:54] LABS: ALT 45 U/L (10-49); AST 55 U/L (14-35); Chol/HDL Ratio 3.23 Ratio; VLDL Calculation 15.98 mg/dL (5.00-40.00)
== END | disposition home or self-care (01) ==
LOC: LABWHC1 08:48
PROVIDERS: ATTEND Internal Medicine Cardiovascular Disease
DX: E78.2 Mixed hyperlipidemia (principal)
CPT/HCPCS: 36415; 80061; 84450; 84460

== ENCOUNTER 2023-07-25 07:49 | Day surgery (SDC) | payer MEDICARE, OTHER ==
[2023-07-25] MEDS ORDERED: LACTATED RINGERS 1,000 ML IV SCH (07:59)
[2023-07-25 08:26] VITALS: RESP 16; TEMP 97
[2023-07-25] MEDS ORDERED: PROPOFOL 10 MG/ML 20 ML VIAL IV ONE (09:11)
--- NOTE | 2023-07-25 09:20 | P.GSHP ---
History of Present Illness H&P Date: 07/25/23 Chief Complaint: GERD, screening colonoscopy This a 62-year-old male presents today for EGD and screening colonoscopy. Patient's history of GERD. Past Medical History Past Medical History: Coronary Artery Disease (CAD), Cancer, GI Bleed, Hyperlipidemia, Hypertension, Osteoarthritis (OA), Sleep Apnea/CPAP/BIPAP Additional Past Medical History / Comment(s): alcholism , rectal bleed 09/2014, pancreatitis, Cervical disk disease on the neck fused 3 disks, does not wear cpap- due for sinus surgery. nasal cancer removed, leg pain ? sciatica History of Any Multi-Drug Resistant Organisms: None Reported Past Surgical History: Cholecystectomy, Heart Catheterization With Stent, Hernia Repair Additional Past Surgical History / Comment(s): MAUREEN FUNDLAPLASTY, EGDs and colonoscopies with benign polypectomies, TOOTH EXTRACTIONS, gallbladder out sep 2020, bunion R foot removed Past Anesthesia/Blood Transfusion Reactions: No Reported Reaction Additional Past Anesthesia/Blood Transfusion Reaction / Comment(s): Pt has received blood without reaction. Date of Last Stent Placement:: 04/14/20 Smoking Status: Current every day smoker - Past Family History Mother Family Medical History: No Reported History Additional Family Medical History / Comment(s): . Father Family Medical History: Diabetes Mellitus, Hypertension, Myocardial Infarction ([place]) Additional Family Medical History / Comment(s): Father at age 84 yrs. Medications and Allergies Home Medications Medication Instructions Recorded Confirmed Type Valsartan/Hydrochlorothiazide 1 tab PO DAILY 11/09/19 07/25/23 History [Diovan Hct 160-12.5 mg Tab] Aspirin 81 mg PO DAILY #30 chew 04/15/20 07/25/23 Rx Nitroglycerin Sl Tabs [Nitrostat] 0.4 mg SUBLINGUAL Q5M PRN #100 tab 04/15/20 07/25/23 Rx Thiamine [Vitamin B-1] 100 mg PO DAILY #30 tablet 04/15/20 07/25/23 Rx ALPRAZolam [Xanax] 0.5 mg PO HS PRN 07/23/23 07/25/23 History Atorvastatin [Lipitor] 40 mg PO DAILY 07/23/23 07/25/23 History Allergies Allergy/AdvReac Type Severity Reaction Status Date / Time No Known Allergies Allergy Verified 07/23/23 09:10 Surgical - Exam Vital Signs Temp Pulse Resp BP Pulse Ox 97 F L 50 L 16 157/74 100 07/25/23 08:10 07/25/23 08:10 07/25/23 08:10 07/25/23 08:10 07/25/23 08:10 - General well developed, well nourished, no distress - Eyes PERRL - ENT normal pinna, normal nares, normal mucosa - Neck no masses - Respiratory normal expansion - Cardiovascular Rhythm: regular - Abdomen Abdomen: soft, non tender Assessment and Plan Assessment: GERD we'll perform EGD. We'll also perform screening colonoscopy.
--- NOTE | 2023-07-25 09:45 | P.OP ---
Date of Procedure: 07/25/23 Preoperative Diagnosis: GERD Screening colonoscopy Postoperative Diagnosis: Antral gastritis Mild esophagitis Minimal diverticular changes of colon Procedure(s) Performed: EGD Colonoscopy Anesthesia: MAC Surgeon: Noam Melchor Pathology: other (Antrum, esophagus) Condition: stable Disposition: PACU Description of Procedure: The patient's placed on the endoscopy table in the lateral position. He received IV sedation. The gastroscope placed oropharynx passed in the esophagus and stomach. Scope was placed through the pylorus. First and second portion of the duodenum appeared normal. Scope was then brought back the antrum this. Mildly inflamed. A biopsies performed. Scope was unretroflexed and remainder the stomach appeared normal. Patient had previous fundoplication wrap. This appeared to be in the appropriate position. The GE junction was at 40 cm per the distal esophagus was minimal inflamed. A biopsies performed. The proximal esophagus appeared normal. Scope was withdrawn for patient. Next digital rectal exam was performed. This revealed no abnormalities. Flexible scope was then placed patient anus and passed throughout the entire colon. The ileocecal valve was visualized. The cecum, ascending and transverse colon appeared normal. In the descending; there is minimal diverticular changes. Scope was then brought back the rectum this appeared normal. Scope withdrawn for patient.
[2023-07-25 10:21] VITALS: BP 121/63; PULSE 49
== END 2023-07-25 10:44 | disposition home or self-care (01) ==
LOC: ORWHC2ENDO 07:49
PROVIDERS: ATTEND Surgery
DX: Z12.11 Encounter for screening for malignant neoplasm of colon (principal); K29.50 Unspecified chronic gastritis without bleeding; K21.00 Gastro-esophageal reflux disease with esophagitis, without bleeding; I25.10 Atherosclerotic heart disease of native coronary artery without angina pectoris; I10 Essential (primary) hypertension; E78.5 Hyperlipidemia, unspecified; M19.90 Unspecified osteoarthritis, unspecified site; F17.200 Nicotine dependence, unspecified, uncomplicated; G47.30 Sleep apnea, unspecified; Z90.49 Acquired absence of other specified parts of digestive tract; Z83.3 Family history of diabetes mellitus; Z82.49 Family history of ischemic heart disease and other diseases of the circulatory system; Z79.899 Other long term (current) drug therapy
CPT/HCPCS: 88305; 43239; G0121; J2704; 45378

== ENCOUNTER → 2023-07-27 | Outpatient (CLI) | payer MEDICARE, OTHER ==
--- NOTE | 2023-07-27 08:37 | XR ---
EXAMINATION TYPE: XR lumbar spine 2 or 3V DATE OF EXAM: 07/27/2023 CLINICAL HISTORY: pain TECHNIQUE: Three views of the lumbar spine are submitted. COMPARISON: None. FINDINGS: There are 5 lumbar type vertebral bodies identified. The lumbar spine shows satisfactory alignment w ithout evidence of acute fracture or dislocation. Vertebral body heights are within normal limits. Multilevel disc space narrowing with endplate sclerosis and anterior osteophytosis. This is most pron ounced at L2-L3 and L5-S1. Lower lumbar spine facet arthropathy most pronounced at L5-S1. The overly ing soft tissue appears unremarkable. Vascular sclerosis. IMPRESSION: 1. No acute fracture or dislocation is seen in the lumbar spine. 2. Mild multilevel degenerative disc disease and facet arthropathy.
== END | disposition home or self-care (01) ==
LOC: RADXRMAIN 08:16
PROVIDERS: ATTEND Family Medicine
DX: M51.36 Other intervertebral disc degeneration, lumbar region (principal); M47.816 Spondylosis without myelopathy or radiculopathy, lumbar region
CPT/HCPCS: 72100

== ENCOUNTER → 2023-09-06 | Outpatient (CLI) | payer MEDICARE, OTHER ==
--- NOTE | 2023-09-07 06:58 | CA ---
Transthoracic Echo Report Name: Teo Fernandez Age: 63 Gender: M : 1960 Exam Date: 09/06/2023 08:40 Exam Location: [facility] Ht (in): 71 Wt (lb): 172 Ordering Physician: Jeffry Yang DO Attending/Referring Phys: Oil Heat Technician Yanelis Dawkins RDCS Procedure CPT: Indications: I10 hypertension, R06.02 shortness of breath Cardiac Hx: Technical Quality: Fair Contrast 1: Total Dose (mL): Contrast 2: Total Dose (mL): MEASUREMENTS (Male / Female) Normal Values 2D ECHO LV Diastolic Diameter PLAX 3.5 cm 4.2 - 5.9 / 3.9 - 5.3 cm LV Systolic Diameter PLAX 2.0 cm IVS Diastolic Thickness 1.6 cm 0.6 - 1.0 / 0.6 - 0.9 cm LVPW Diastolic Thickness 1.3 cm 0.6 - 1.0 / 0.6 - 0.9 cm LV Relative Wall Thickness 0.8 RV Internal Dim ED PLAX 3.4 cm LA Volume 73.6 cm??? 18 - 58 / 22 - 52 cm??? LA Volume Index 37.1 cm???/m??? 16 - 28 cm???/m??? M-MODE Aortic Root Diameter MM 2.9 cm LA Systolic Diameter MM 3.9 cm LA Ao Ratio MM 1.4 AV Cusp Separation MM 1.7 cm DOPPLER AV Peak Velocity 222.7 cm/s AV Peak Gradient 19.8 mmHg AV Mean Velocity 161.8 cm/s AV Mean Gradient 11.8 mmHg AV Velocity Time Integral 44.4 cm LVOT Peak Velocity 201.1 cm/s LVOT Peak Gradient 16.2 mmHg LVOT Velocity Time Integral 44.5 cm MV Area PHT 2.9 cm??? Mitral E Point Velocity 73.9 cm/s Mitral A Point Velocity 58.2 cm/s Mitral E to A Ratio 1.3 MV Deceleration Time 257.3 ms MV E' Velocity 3.2 cm/s Mitral E to MV E' Ratio 23.1 TR Peak Velocity 240.5 cm/s TR Peak Gradient 23.1 mmHg Right Ventricular Systolic Press 26.8 mmHg FINDINGS Left Ventricle Moderately increased left ventricular wall thickness. Left ventricular cavity size normal. Normal left ventricular systolic function with no obvious regional wall motion abnormalities. Left ventricular ejection fraction is estimated at 55-60 %. Right Ventricle Mild right ventricular dilatation. Right ventricular systolic pressure within normal limits. Right Atrium Normal right atrial size. Left Atrium Moderately increased left atrial volume. Mitral Valve Structurally normal mitral valve. Mild mitral regurgitation. Aortic Valve Trileaflet aortic valve. Trace aortic regurgitation. Mild aortic stenosis with a peak gradient of 20 mmHg and a mean gradient of 12 mmHg. Tricuspid Valve Structurally normal tricuspid valve. Mild tricuspid regurgitation. Pulmonic Valve Trace pulmonic regurgitation. Pericardium No pericardial effusion. Aorta Normal size aortic root and proximal ascending aorta. CONCLUSIONS LVH with preserved systolic function Thickened aortic valve without any significant stenosis Previewed by: Dr. Gerard Gandhi MD (Electronically Signed) Final Date: 07 September 2023 06:57
== END | disposition home or self-care (01) ==
LOC: RADECHMAIN 08:25
PROVIDERS: ATTEND Family Medicine
DX: I11.0 Hypertensive heart disease with heart failure (principal); I50.22 Chronic systolic (congestive) heart failure; R06.02 Shortness of breath
CPT/HCPCS: 93306

== ENCOUNTER → 2024-04-24 | Outpatient (CLI) | payer MEDICARE, OTHER ==
[2024-04-24 16:13] LABS: ALT 38 U/L (10-49); AST 41 U/L (14-35); Albumin 4.6 g/dL (3.8-4.9); Albumin/Globulin Ratio 1.31 Ratio (1.60-3.17); Alkaline Phosphatase 90 U/L (41-126); Amylase 93 U/L (23-121); Blood Urea Nitrogen 12.2 mg/dL (9.0-27.0); Calcium 10.3 mg/dL (8.7-10.3); Carbon Dioxide 22.8 mmol/L (21.6-31.8); Chloride 110 mmol/L (96-109); Globulin 3.5 g/dL (1.6-3.3); Glucose 87 mg/dL (70-110); Lipase 41 U/L (14-60); Potassium 4.6 mmol/L (3.5-5.5); Sodium 148 mmol/L (135-145); Total Bilirubin 0.3 mg/dL (0.3-1.2); Total Protein 8.1 g/dL (6.2-8.2); Uric Acid 8.3 mg/dL (3.7-8.7)
[2024-04-24 16:54] LABS: Basophils # (A) 0.04 X 10*3/uL (0.00-0.10); Basophils % (A) 0.5 %; Eosinophils # (A) 0.16 X 10*3/uL (0.04-0.35); HCT 39.9 % (39.6-50.0); HGB 13.1 g/dL (13.0-17.0); Lymphocytes # (A) 1.93 X 10*3/uL (0.90-5.00); Lymphocytes % (A) 24.7 %; MCH 32.1 pg (27.0-32.0); MCHC 32.8 g/dL (32.0-37.0); MCV 97.8 FL (80.0-97.0); Monocytes # (A) 0.53 X 10*3/uL (0.20-1.00); Monocytes % (A) 6.8 %; NRBC Per 100 WBC 0 X 10*3/uL (0.00-0.01); Neutrophils # (A) 5.13 X 10*3/uL (1.80-7.70); Neutrophils % (A) 65.7 %; Platelet Count 126 X 10*3/uL (140-440); RBC 4.08 X 10*6/uL (4.40-5.60); RDW 15.5 % (11.5-14.5); Toxic Vacuolation 2+; WBC 7.81 X 10*3/uL (4.50-10.00)
== END | disposition home or self-care (01) ==
LOC: LABWHC1 11:49
PROVIDERS: ATTEND Family Medicine
DX: I10 Essential (primary) hypertension (principal); E78.2 Mixed hyperlipidemia; E87.1 Hypo-osmolality and hyponatremia; F10.20 Alcohol dependence, uncomplicated
CPT/HCPCS: 36415; 80053; 82150; 82607; 82746; 83690; 84207; 84425; 84550; 85025

== ENCOUNTER 2024-09-03 17:35 | Emergency (ER) | payer MEDICARE, OTHER ==
[2024-09-03] MEDS: FLUORESCEIN STRIPS 1 MG STRIP RIGHT EYE ONE (18:56)
[2024-09-03] MEDS: PROPARACAINE 0.5% OPHTH DROPS 15 ML BTL RIGHT EYE STA (18:56)
[2024-09-03] MEDS: DIPH,PERTUS(ACELL)TETVAC-LF 0.5 ML VIAL IM ONE (19:31)
--- NOTE | 2024-09-03 19:40 | ED ---
Eye Problem HPI - General Chief complaint: Eye Problems Stated complaint: R eye forgien object Time Seen by Provider: 09/03/24 18:35 Source: patient, RN notes reviewed Mode of arrival: ambulatory Limitations: no limitations - History of Present Illness Initial comments: 64-year-old male presenting for right eye pain x 7 hours. States he was sitting in his garage smoking a cigar, when the furnace suddenly turned on, and patient felt something fly into his right eye. Patient tried to flush out his eye, however continues to have foreign body sensation. Denies vision changes. Denies contact lenses. - Related Data Home Medications Medication Instructions Recorded Confirmed Valsartan/Hydrochlorothiazide 1 tab PO DAILY 11/09/19 07/25/23 [Diovan Hct 160-12.5 mg Tab] ALPRAZolam [Xanax] 0.5 mg PO HS PRN 07/23/23 07/25/23 Atorvastatin [Lipitor] 40 mg PO DAILY 07/23/23 07/25/23 Previous Rx's Medication Instructions Recorded Aspirin 81 mg PO DAILY #30 chew 04/15/20 Nitroglycerin Sl Tabs [Nitrostat] 0.4 mg SUBLINGUAL Q5M PRN #100 tab 04/15/20 Thiamine [Vitamin B-1] 100 mg PO DAILY #30 tablet 04/15/20 Cyclobenzaprine HCl 10 mg PO TID PRN 7 Days #21 tab 07/28/23 Cyclobenzaprine HCl 10 mg PO TID PRN 7 Days #21 tab 07/28/23 Cyclobenzaprine HCl 10 mg PO TID PRN 7 Days #21 tab 07/28/23 Ketorolac [Toradol] 10 mg PO Q8H PRN 5 Days #15 tab 07/28/23 Ketorolac [Toradol] 10 mg PO Q8H PRN 5 Days #15 tab 07/28/23 Ketorolac [Toradol] 10 mg PO Q8H PRN 5 Days #15 tab 07/28/23 Ofloxacin 0.3% Ophth Soln [Ocuflox 10 drops RIGHT EYE BID #10 ml 09/03/24 Ophth Soln] Allergies Allergy/AdvReac Type Severity Reaction Status Date / Time No Known Allergies Allergy Verified 07/28/23 07:36 Review of Systems ROS Statement: Those systems with pertinent positive or pertinent negative responses have been documented in the HPI. ROS Other: All systems not noted in ROS Statement are negative. Past Medical History Past Medical History: Coronary Artery Disease (CAD), Cancer, GI Bleed, Hyperlipidemia, Hypertension, Osteoarthritis (OA), Sleep Apnea/CPAP/BIPAP Additional Past Medical History / Comment(s): alcholism , rectal bleed 09/2014, pancreatitis, Cervical disk disease on the neck fused 3 disks, does not wear cpap- due for sinus surgery. nasal cancer removed, leg pain ? sciatica History of Any Multi-Drug Resistant Organisms: None Reported Past Surgical History: Cholecystectomy, Heart Catheterization With Stent, Hernia Repair Additional Past Surgical History / Comment(s): MAUREEN FUNDLAPLASTY, EGDs and colonoscopies with benign polypectomies, TOOTH EXTRACTIONS, gallbladder out sep 2020, bunion R foot removed Past Anesthesia/Blood Transfusion Reactions: No Reported Reaction Additional Past Anesthesia/Blood Transfusion Reaction / Comment(s): Pt has received blood without reaction. Date of Last Stent Placement:: 04/14/20 Past Psychological History: No Psychological Hx Reported Smoking Status: Current every day smoker Past Alcohol Use History: Occasional Past Drug Use History: None Reported - Past Family History Mother Family Medical History: No Reported History Additional Family Medical History / Comment(s): . Father Family Medical History: Diabetes Mellitus, Hypertension, Myocardial Infarction ([place]) Additional Family Medical History / Comment(s): Father at age 84 yrs. General Exam Limitations: no limitations General appearance: alert, in no apparent distress Head exam: Present: atraumatic, normocephalic, normal inspection Eye exam: Present: PERRL, EOMI, conjunctival injection (Right conjunctival injection, no drainage. Fluorescein stain reveals no abrasions, ulcerations, or foreign bodies. Visual acuity 20/40 left, 20/100 right.). Absent: normal appearance, scleral icterus, periorbital swelling Pupils: Present: normal accommodation ENT exam: Present: normal exam, mucous membranes moist Neck exam: Present: normal inspection. Absent: tenderness, meningismus, lymphadenopathy Respiratory exam: Present: normal lung sounds bilaterally. Absent: respiratory distress, wheezes, rales, rhonchi, stridor Cardiovascular Exam: Present: regular rate, normal rhythm, normal heart sounds. Absent: systolic murmur, diastolic murmur, rubs, gallop, clicks Neurological exam: Present: alert, oriented X3 Psychiatric exam: Present: normal affect, normal mood Skin exam: Present: warm, dry, intact, normal color. Absent: rash Course Vital Signs 09/03/24 09/03/24 17:42 19:43 Temperature 97.8 F 97.9 F Pulse Rate 67 72 Respiratory 20 18 Rate Blood Pressure 110/64 115/79 O2 Sat by Pulse 100 96 Oximetry Medical Decision Making - Medical Decision Making Was pt. sent in by a medical professional or institution (, [facility], MEDICAL GENETICIST, urgent care, hospital, or detention...) When possible be specific @ -No Did you speak to anyone other than the patient for history (EMS, parent, family, police, friend...)? What history was obtained from this source @ -No Did you review nursing and triage notes (agree or disagree)? Why? @ -I reviewed and agree with nursing and triage notes Were old charts reviewed (outside hosp., previous admission, EMS record, old EKG, old radiological studies, urgent care reports/EKG's, detention records)? Report findings @ -No old charts were reviewed Differential Diagnosis (chest pain, altered mental status, abdominal pain women, abdominal pain men, vaginal bleeding, weakness, fever, dyspnea, syncope, headache, dizziness, GI bleed, back pain, seizure, CVA, palpatations, mental health, musculoskeletal)? @ -Corneal abrasion, corneal ulceration, foreign body, retinal detachment, periorbital cellulitis EKG interpreted by me (3pts min.). @ -None X-rays interpreted by me (1pt min.). @ -None done CT interpreted by me (1pt min.). @ -None done U/S interpreted by me (1pt. min.). @ -None done What testing was considered but not performed or refused? (CT, X-rays, U/S, labs)? Why? @ -None What meds were considered but not given or refused? Why? @ -None Did you discuss the management of the patient with other professionals (professionals i.e. [facility] Dash, MEDICAL GENETICIST, lab, RT, psych nurse, social work professor, dope and fabric worker, teacher, district resource officer, case assembler)? Give summary @ -No Was smoking cessation discussed for >3mins.? @ -No Was critical care preformed (if so, how long)? @ -No Were there social determinants of health that impacted care today? How? (Homelessness, low income, unemployed, alcoholism, drug addiction, transportation, low edu. Level, literacy, decrease access to med. care, penitentiary, rehab)? @ -No Was there de-escalation of care discussed even if they declined (Discuss DNR or withdrawal of care, Hospice)? DNR status @ -No What co-morbidities impacted this encounter? (DM, HTN, Smoking, COPD, CAD, Cancer, CVA, ARF, Chemo, Hep., AIDS, mental health diagnosis, sleep apnea, morbid obesity)? @ -None Was patient admitted / discharged? Hospital course, mention meds given and route, prescriptions, significant lab abnormalities, going to OR and other pertinent info. @ -Discharge. This is a 64-year-old male presenting with right eye pain x 7 hours. Patient was in his garage when the furnace turned on and patient felt s omething fly into his right eye. Patient flushed his eye, however continues to experience foreign body sensation and irritation. No sign of bacterial infection. Fluorescein stain reveals no foreign body, ulceration, or abrasion. Discussed negative findings, however will treat as corneal abrasion. Tetanus was updated. Patient was discharged with ofloxacin drops. Instructed to follow-up with ophthalmology tomorrow, patient is agreeable to plan. Return precautions discussed. Case was discussed with my ED attending Dr. Hinojosa. Patient discharged in stable condition. Undiagnosed new problem with uncertain prognosis? @ -No Drug Therapy requiring intensive monitoring for toxicity (Heparin, Nitro, Insulin, Cardizem)? @ -No Were any procedures done? @ -No Diagnosis/symptom? @ -Corneal abrasion right eye Acute, or Chronic, or Acute on Chronic? @ -Acute Uncomplicated (without systemic symptoms) or Complicated (systemic symptoms)? @ -Uncomplicated Side effects of treatment? @ -No Exacerbation, Progression, or Severe Exacerbation? @ -No Poses a threat to life or bodily function? How? (Chest pain, [place], [place], pneumonia, PE, COPD, DKA, ARF, appy, cholecystitis, CVA, Diverticulitis, Homicidal, Suicidal, threat to staff... and all critical care pts) @ -No Disposition Clinical Impression: Corneal abrasion, right Disposition: HOME SELF-CARE Condition: Stable Instructions (If sedation given, give patient instructions): Corneal Abrasion (ED) Additional Instructions: Use ofloxacin drops as directed for 7 days. Follow-up with ophthalmology tomorrow as discussed. Please return to the Emergency Department if symptoms worsen or any other concerns. Prescriptions: Ofloxacin 0.3% Ophth Soln [Ocuflox Ophth Soln] 10 drops RIGHT EYE BID #10 ml Is patient prescribed a controlled substance at d/c from ED?: No Referrals: Jeffry Yang DO [Primary Care Provider] - 1-2 days Time of Disposition: 19:39
[2024-09-03 19:45] VITALS: BP 115/79; PULSE 72; RESP 18; TEMP 97.9
== END 2024-09-03 19:43 | disposition home or self-care (01) ==
LOC: EC 17:35
CPT/HCPCS: 90471; 90715; 99283

== ENCOUNTER 2025-05-28 17:46 | Observation (INO) | payer MEDICARE, OTHER ==
[2025-05-28 18:07] VITALS: RESP 18
[2025-05-28 18:48] LABS: ALT 58 U/L (4-49); African American GFR (CKD) 39 (>60 ml/min/1.73 sqM); Albumin 5.0 g/dL (3.5-5.0); Anion Gap 17 mmol/L; Blood Urea Nitrogen 24 mg/dL (9-20); Calcium 10.9 mg/dL (8.4-10.2); Carbon Dioxide 22 mmol/L (22-30); Chloride 97 mmol/L (98-107); Glucose 93 mg/dL (74-99); Non-African American GFR(CKD) 34 (>60 ml/min/1.73 sqM); Sodium 136 mmol/L (137-145); Total Protein 8.5 g/dL (6.3-8.2)
[2025-05-28 18:54] LABS: AST 119 U/L (17-59); Alkaline Phosphatase 53 U/L (38-126); Potassium 4.8 mmol/L (3.5-5.1)
[2025-05-28 19:02] LABS: INR 0.9 (<1.2); Partial Thromboplastin Time 22.6 sec (22.0-30.0); Prothrombin Time 10.2 sec (10.0-12.5)
[2025-05-28 19:06] LABS: Bilirubin,Urine Negative (Negative); Blood,Urine Negative (Negative); Color,Urine Yellow; Glucose,Urine (UA) Negative (Negative); Ketones,Urine Negative (Negative); Leukocyte Esterase,Urine Negative (Negative); Nitrite,Urine Negative (Negative); PH, Urine 5.5 (5.0-8.0); Protein,Urine Negative (Negative); Specific Gravity,Urine 1.014 (1.001-1.035); Urobilinogen,Urine 2.0 mg/dL (<2.0)
--- NOTE | 2025-05-28 19:11 | XR ---
EXAMINATION TYPE: XR chest 2V DATE OF EXAM: 05/28/2025 6:48 PM COMPARISON: Chest radiographs from 09/25/2021, CTA chest 05/14/2020 TECHNIQUE: XR chest 2V Frontal and lateral views of the chest. CLINICAL INDICATION:Male, 64 years old with history of weakness; FINDINGS: Lungs/Pleura: There is no evidence of pleural effusion, focal consolidation, or pneumothorax. Pulmonary vascularity: Unremarkable. Heart/mediastinum: Cardiomediastinal silhouette is unremarkable. Musculoskeletal: No acute osseous pathology. Anterior cervical fusion hardware. IMPRESSION: No acute cardiopulmonary disease/process. [facility], , 05/28/2025 7:09 PM
[2025-05-28 19:29] LABS: Basophils # (A) 0.04 10*3/uL (0.00-0.10); Basophils % (A) 0.5 %; Eosinophils # (A) 0.12 10*3/uL (0.04-0.35); Eosinophils % (A) 1.5 %; HCT 29.2 % (39.6-50.0); HGB 11.2 g/dL (13.0-17.0); Lymphocytes # (A) 1.84 10*3/uL (0.90-5.00); Lymphocytes % (A) 22.8 %; MCH 34.6 pg (27.0-32.0); MCV 90.1 fL (80.0-97.0); Monocytes # (A) 0.62 10*3/uL (0.20-1.00); Monocytes % (A) 7.7 %; Neutrophils # (A) 5.44 10*3/uL (1.80-7.70); Neutrophils % (A) 67.3 %; Platelet Count 127 10*3/uL (140-440); RBC 3.24 10*6/uL (4.40-5.60); RDW 20.0 % (11.5-14.5); WBC 8.08 10*3/uL (4.50-10.00)
[2025-05-28 19:31] LABS: MCHC 38.4 g/dL (32.0-37.0)
--- NOTE | 2025-05-28 20:04 | ED ---
Weakness HPI - General Chief complaint: Weakness Stated complaint: weakness Time Seen by Provider: 05/28/25 19:51 Source: patient, family Mode of arrival: wheelchair - History of Present Illness Initial comments: Patient is a 64-year-old man with history of previous cholecystectomy (nine years ago) and history of pancreatitis presents with complaint that he is feeling generalized weakness, worse when he gets up and walks. He gets lightheaded with walking. This has been going on and getting progressively worse over the past approximately 4 days. He notes that his oral intake has been down because he has been having upper abdominal pain. The patient states that it reminds him a little of previous pancreatitis. He states that he mainly was concerned about the weakness and lightheadedness. He had gotten up to walk [place] which [place] states [place] very far from his home and he had to turn back and sit and rest because he was feeling like he would pass out. The patient has not noted fever or chills. He is not having vomiting. He states that his bowel movements have been less frequent and may be darker. He is urinating less frequently. He has not had chest pain. No dyspnea at rest but he does have exertional dyspnea. MD Complaint: generalized weakness Onset/Timin -: days(s) Location: other (Abdomen) Severity: moderate Quality: dull Consistency: constant Improves with: none Worsens with: none Associated Symptoms: dark stools - Related Data Home Medications Medication Instructions Recorded Confirmed Apixaban [Eliquis] 5 mg PO BID 05/29/25 05/29/25 Multivitamins, Thera [Multivitamin 1 tab PO DAILY 05/29/25 05/29/25 (formulary)] Sildenafil Citrate [Viagra] 100 mg PO Q72H PRN 05/29/25 05/29/25 Previous Rx's Medication Instructions Recorded Aspirin 81 mg PO DAILY #30 chew 04/15/20 Nitroglycerin Sl Tabs [Nitrostat] 0.4 mg SUBLINGUAL Q5M PRN #100 tab 04/15/20 Pantoprazole [Protonix] 40 mg PO DAILY #30 tab 05/29/25 Valsartan 160 mg PO DAILY #30 tab 05/29/25 Allergies Allergy/AdvReac Type Severity Reaction Status Date / Time ibuprofen Allergy Rash/Hives Verified 05/29/25 09:26 Review of Systems ROS Statement: Those systems with pertinent positive or pertinent negative responses have been documented in the HPI. ROS Other: All systems not noted in ROS Statement are negative. Constitutional: Reports: weakness. Denies: fever, chills Eyes: Denies: vision change Respiratory: Denies: cough, dyspnea, wheezes, hemoptysis Cardiovascular: Reports: dyspnea on exertion. Denies: chest pain, palpitations, orthopnea, edema, syncope Gastrointestinal: Reports: abdominal pain. Denies: nausea, vomiting, diarrhea, hematochezia Genitourinary: Denies: dysuria, hematuria Musculoskeletal: Denies: back pain Skin: Denies: rash Neurological: Denies: headache, weakness, numbness, confusion Past Medical History Past Medical History: Coronary Artery Disease (CAD), Cancer, GI Bleed, Hyperlipidemia, Hypertension, Osteoarthritis (OA), Sleep Apnea/CPAP/BIPAP Additional Past Medical History / Comment(s): alcholism , rectal bleed 09/2014, pancreatitis, Cervical disk disease on the neck fused 3 disks, does not wear cpap- due for sinus surgery. nasal cancer removed, leg pain ? sciatica History of Any Multi-Drug Resistant Organisms: None Reported Past Surgical History: Cholecystectomy, Heart Catheterization With Stent, Hernia Repair Additional Past Surgical History / Comment(s): MAUREEN FUNDLAPLASTY, EGDs and colonoscopies with benign polypectomies, TOOTH EXTRACTIONS, gallbladder out sep 2020, bunion R foot removed Past Anesthesia/Blood Transfusion Reactions: No Reported Reaction Additional Past Anesthesia/Blood Transfusion Reaction / Comment(s): Pt has received blood without reaction. Date of Last Stent Placement:: 04/14/20 Past Psychological History: No Psychological Hx Reported Smoking Status: Current every day smoker Past Alcohol Use History: Occasional Past Drug Use History: None Reported - Past Family History Mother Family Medical History: No Reported History Additional Family Medical History / Comment(s): . Father Family Medical History: Diabetes Mellitus, Hypertension, Myocardial Infarction (ND) Additional Family Medical History / Comment(s): Father at age 84 yrs. General Exam General appearance: alert, in no apparent distress Head exam: Present: atraumatic, normocephalic Eye exam: Present: normal appearance. Absent: scleral icterus, conjunctival injection ENT exam: Present: mucous membranes dry Neck exam: Present: normal inspection Respiratory exam: Present: normal lung sounds bilaterally. Absent: respiratory distress, wheezes, rales, rhonchi, stridor, accessory muscle use Cardiovascular Exam: Present: regular rate, normal rhythm, normal heart sounds. Absent: systolic murmur, diastolic murmur, rubs, gallop GI/Abdominal exam: Present: soft. Absent: distended, tenderness, guarding, rebound, rigid, mass Extremities exam: Present: normal inspection, normal capillary refill. Absent: pedal edema, calf tenderness Back exam: Present: normal inspection. Absent: CVA tenderness (R), CVA tenderness (L) Neurological exam: Present: alert Skin exam: Present: warm, dry, intact, normal color. Absent: rash Course Vital Signs 05/28/25 05/28/25 05/29/25 18:03 23:05 01:22 Temperature 97.8 F Pulse Rate 71 60 Pulse Rate [ 51 L Pulse Oximetery ] Respiratory 18 18 18 Rate Blood Pressure 96/64 134/84 Blood Pressure 155/62 [Right Arm] O2 Sat by Pulse 100 98 97 Oximetry 05/29/25 11:15 Temperature 97.8 F Pulse Rate 50 L Pulse Rate [ Pulse Oximetery ] Respiratory 18 Rate Blood Pressure 116/68 Blood Pressure [Right Arm] O2 Sat by Pulse 100 Oximetry EKG Findings - EKG Results: EKG: interpreted by ERMD, sinus rhythm (Rate 65 bpm), normal axis, normal QRS - Blocks, [place], Hypertrophy, ST Abn: Repolarization changes or abnormalities: nonspecific abnormality, ST segment, and/or T wave Medical Decision Making - Medical Decision Making Was pt. sent in by a medical professional or institution (, PA, [employer], urgent care, hospital, or usp...) When possible be specific @ -[No] Did you speak to anyone other than the patient for history (EMS, parent, family, police, friend...)? What history was obtained from this source @ -[No] Did you review nursing and triage notes (agree or disagree)? Why? @ -[I reviewed and agree with nursing and triage notes] Were old charts reviewed (outside hosp., previous admission, EMS record, old EKG, old radiological studies, urgent care reports/EKG's, usp records)? Report findings @ -[No old charts were reviewed] Differential Diagnosis (chest pain, altered mental status, abdominal pain women, abdominal pain men, vaginal bleeding, weakness, fever, dyspnea, syncope, headache, dizziness, GI bleed, back pain, seizure, CVA, palpatations, mental health, musculoskeletal)? @ -[Differential Weakness: Hypoglycemia, shock, sepsis, hyponatremia, anemia, infection, ND, ETOH, adverse medicine reaction, overdose, stroke, this is not meant to be an all-inclusive list. EKG interpreted by me (3pts min.). @ -[I interpreted as above] X-rays interpreted by me (1pt min.). @ -[None done] CT interpreted by me (1pt min.). @ -[None done] U/S interpreted by me (1pt. min.). @ -[None done] What testing was considered but not performed or refused? (CT, X-rays, U/S, labs)? Why? @ -[None] What meds were considered but not given or refused? Why? @ -[None] Did you discuss the management of the patient with other professionals (professionals i.e. , PA, [employer], lab, RT, psych nurse, social sciences research scientist, claims coordinator, teacher, disciplinary hearing officer, returned case inspector)? Give summary @ -[Case discussed with admitting physician and treatment recommendations Incorporated Was smoking cessation discussed for >3mins.? @ -[No] Was critical care preformed (if so, how long)? @ -[No] Were there social determinants of health that impacted care today? How? (Homelessness, low income, unemployed, alcoholism, drug addiction, transportation, low edu. Level, literacy, decrease access to med. care, [facility], rehab)? @ -[No] Was there de-escalation of care discussed even if they declined (Discuss DNR or withdrawal of care, Hospice)? DNR status @ -[No] What co-morbidities impacted this encounter? (DM, HTN, Smoking, COPD, CAD, Cancer, CVA, ARF, Chemo, Hep., AIDS, mental health diagnosis, sleep apnea, morbid obesity)? @ -[Previous pancreatitis Was patient admitted / discharged? Hospital course, mention meds given and route, prescriptions, significant lab abnormalities, going to OR and other pertinent info. @ -Patient is 64-year-old man here to have evaluation for a near syncopal episode. The patient probably has had recent episode of pancreatitis and therefore decreased his oral intake resulting in today's episode. The workup does reveal moderate lactic acidosis and elevated pancreatic enzyme and renal function. The patient is admitted to have hydration and ensure that his creatinine is returning to baseline. Patient improving with fluids here. Undiagnosed new problem with uncertain prognosis? @ -[No] Drug Therapy requiring intensive monitoring for toxicity (Heparin, Nitro, Insulin, Cardizem)? @ -[No] Were any procedures done? @ -[No] Diagnosis/symptom? @ -Acute near syncopal episode Lactic acidosis Acute kidney injury Dehydration Mild pancreatitis Acute, or Chronic, or Acute on Chronic? @ -[Acute Uncomplicated (without systemic symptoms) or Complicated (systemic symptoms)? @ -[Complicated by near syncopal episode Side effects of treatment? @ -[No] Exacerbation, Progression, or Severe Exacerbation? @ -[No] Poses a threat to life or bodily function? How? (Chest pain, USA, ND, pneumonia, PE, COPD, DKA, ARF, appy, cholecystitis, CVA, Diverticulitis, Homicidal, Suicidal, threat to staff... and all critical care pts) @ -[No] All treatments are based on ideal body weight as in ED triage - Lab Data Result diagrams: 05/29/25 02:57 05/29/25 02:57 Lab Results 05/28/25 05/28/25 05/28/25 Range/Units 18:30 18:30 18:30 WBC 8.08 (4.50-10.00) 10*3/uL RBC 3.24 L (4.40-5.60) 10*6/uL Hgb 11.2 L (13.0-17.0) g/dL Hct 29.2 L (39.6-50.0) % MCV 90.1 (80.0-97.0) fL MCH 34.6 H (27.0-32.0) pg MCHC 38.4 H (32.0-37.0) g/dL Plt Count 127 L (140-440) 10*3/uL Immature Gran % (Auto) 0.2 % Neutrophils % 67.3 % Lymphocytes % 22.8 % Monocytes % 7.7 % Eosinophils % 1.5 % Basophils % 0.5 % Immature Gran # 0.02 (0.00-0.04) 10*3/uL Neutrophils # 5.44 (1.80-7.70) 10*3/uL Lymphocytes # 1.84 (0.90-5.00) 10*3/uL Monocytes # 0.62 (0.20-1.00) 10*3/uL Eosinophils # 0.12 (0.04-0.35) 10*3/uL Basophils # 0.04 (0.00-0.10) 10*3/uL PT 10.2 (10.0-12.5) sec INR 0.9 (<1.2) APTT 22.6 (22.0-30.0) sec Sodium 136 L (137-145) mmol/L Potassium 4.8 (3.5-5.1) mmol/L Chloride 97 L (98-107) mmol/L Carbon Dioxide 22 (22-30) mmol/L Anion Gap 17 mmol/L BUN 24 H (9-20) mg/dL Creatinine 2.02 H (0.66-1.25) mg/dL Est GFR (CKD-EPI)AfAm 39 (>60 ml/min/1.73 sqM) Est GFR (CKD-EPI)NonAf 34 (>60 ml/min/1.73 sqM) Glucose 93 (74-99) mg/dL Lactic Ac Sepsis Rflx Plasma Lactic Acid Julio Cesar (0.7-2.0) mmol/L Calcium 10.9 H (8.4-10.2) mg/dL Total Bilirubin 0.8 (0.2-1.3) mg/dL AST 119 H (17-59) U/L ALT 58 H (4-49) U/L Alkaline Phosphatase 53 (38-126) U/L Troponin I (0.000-0.034) ng/mL Total Protein 8.5 H (6.3-8.2) g/dL Albumin 5.0 (3.5-5.0) g/dL Amylase (30-110) U/L Lipase (23-300) U/L Urine Color Urine Appearance (Clear) Urine pH (5.0-8.0) Ur Specific [place] (1.001-1.035) Urine Protein (Negative) Urine Glucose (UA) (Negative) Urine Ketones (Negative) Urine Blood (Negative) Urine Nitrite (Negative) Urine Bilirubin (Negative) Urine Urobilinogen (<2.0) mg/dL Ur Leukocyte Esterase (Negative) 05/28/25 05/28/25 05/28/25 Range/Units 18:31 18:50 18:58 WBC (4.50-10.00) 10*3/uL RBC (4.40-5.60) 10*6/uL Hgb (13.0-17.0) g/dL Hct (39.6-50.0) % MCV (80.0-97.0) fL MCH (27.0-32.0) pg MCHC (32.0-37.0) g/dL Plt Count (140-440) 10*3/uL Immature Gran % (Auto) % Neutrophils % % Lymphocytes % % Monocytes % % Eosinophils % % Basophils % % Immature Gran # (0.00-0.04) 10*3/uL Neutrophils # (1.80-7.70) 10*3/uL Lymphocytes # (0.90-5.00) 10*3/uL Monocytes # (0.20-1.00) 10*3/uL Eosinophils # (0.04-0.35) 10*3/uL Basophils # (0.00-0.10) 10*3/uL PT (10.0-12.5) sec INR (<1.2) APTT (22.0-30.0) sec Sodium (137-145) mmol/L Potassium (3.5-5.1) mmol/L Chloride (98-107) mmol/L Carbon Dioxide (22-30) mmol/L Anion Gap mmol/L BUN (9-20) mg/dL Creatinine (0.66-1.25) mg/dL Est GFR (CKD-EPI)AfAm (>60 ml/min/1.73 sqM) Est GFR (CKD-EPI)NonAf (>60 ml/min/1.73 sqM) Glucose (74-99) mg/dL Lactic Ac Sepsis Rflx Y Plasma Lactic Acid Julio Cesar 4.7 H* (0.7-2.0) mmol/L Calcium (8.4-10.2) mg/dL Total Bilirubin (0.2-1.3) mg/dL AST (17-59) U/L ALT (4-49) U/L Alkaline Phosphatase (38-126) U/L Troponin I (0.000-0.034) ng/mL Total Protein (6.3-8.2) g/dL Albumin (3.5-5.0) g/dL Amylase (30-110) U/L Lipase (23-300) U/L Urine Color Yellow Urine Appearance Clear (Clear) Urine pH 5.5 (5.0-8.0) Ur Specific [place] 1.014 (1.001-1.035) Urine Protein Negative (Negative) Urine Glucose (UA) Negative (Negative) Urine Ketones Negative (Negative) Urine Blood Negative (Negative) Urine Nitrite Negative (Negative) Urine Bilirubin Negative (Negative) Urine Urobilinogen 2.0 (<2.0) mg/dL Ur Leukocyte Esterase Negative (Negative) 05/28/25 05/28/25 Range/Units 21:04 21:04 WBC (4.50-10.00) 10*3/uL RBC (4.40-5.60) 10*6/uL Hgb (13.0-17.0) g/dL Hct (39.6-50.0) % MCV (80.0-97.0) fL MCH (27.0-32.0) pg MCHC (32.0-37.0) g/dL Plt Count (140-440) 10*3/uL Immature Gran % (Auto) % Neutrophils % % Lymphocytes % % Monocytes % % Eosinophils % % Basophils % % Immature Gran # (0.00-0.04) 10*3/uL Neutrophils # (1.80-7.70) 10*3/uL Lymphocytes # (0.90-5.00) 10*3/uL Monocytes # (0.20-1.00) 10*3/uL Eosinophils # (0.04-0.35) 10*3/uL Basophils # (0.00-0.10) 10*3/uL PT (10.0-12.5) sec INR (<1.2) APTT (22.0-30.0) sec Sodium (137-145) mmol/L Potassium (3.5-5.1) mmol/L Chloride (98-107) mmol/L Carbon Dioxide (22-30) mmol/L Anion Gap mmol/L BUN (9-20) mg/dL Creatinine (0.66-1.25) mg/dL Est GFR (CKD-EPI)AfAm (>60 ml/min/1.73 sqM) Est GFR (CKD-EPI)NonAf (>60 ml/min/1.73 sqM) Glucose (74-99) mg/dL Lactic Ac Sepsis Rflx Plasma Lactic Acid Julio Cesar (0.7-2.0) mmol/L Calcium (8.4-10.2) mg/dL Total Bilirubin (0.2-1.3) mg/dL AST (17-59) U/L ALT (4-49) U/L Alkaline Phosphatase (38-126) U/L Troponin I <0.012 (0.000-0.034) ng/mL Total Protein (6.3-8.2) g/dL Albumin (3.5-5.0) g/dL Amylase 75 (30-110) U/L Lipase 363 H (23-300) U/L Urine Color Urine Appearance (Clear) Urine pH (5.0-8.0) Ur Specific [place] (1.001-1.035) Urine Protein (Negative) Urine Glucose (UA) (Negative) Urine Ketones (Negative) Urine Blood (Negative) Urine Nitrite (Negative) Urine Bilirubin (Negative) Urine Urobilinogen (<2.0) mg/dL Ur Leukocyte Esterase (Negative) Disposition Clinical Impression: Pancreatitis, Acute kidney injury, Dehydration, Lactic acidosis Disposition: ADMITTED IP TO THIS HOSP Condition: Fair Is patient prescribed a controlled substance at d/c from ED?: No
[2025-05-28 21:23] LABS: Amylase 75 U/L (30-110); Lipase 363 U/L (23-300)
[2025-05-28] MEDS: LACTATED RINGERS 1,000 ML IV ONE (21:28)
[2025-05-28] MEDS: LACTATED RINGERS 1,000 ML IV SCH (21:59)
[2025-05-28] MEDS: MORPHINE SULFATE 4 MG/ML SYRINGE IV STA (22:23)
[2025-05-28] MEDS ORDERED: ACETAMINOPHEN TAB 325 MG TAB PO PRN (22:44)
[2025-05-28] MEDS ORDERED: ONDANSETRON 4 MG/2 ML VIAL IVP PRN (22:44)
[2025-05-28] MEDS ORDERED: NALOXONE 0.4 MG/ML 1 ML VIAL IV PRN (22:44)
[2025-05-29] MEDS: LACTATED RINGERS 1,000 ML IV SCH (00:30)
[2025-05-29 03:42] LABS: Basophils # (A) 0.05 10*3/uL (0.00-0.10); Basophils % (A) 0.8 %; Eosinophils # (A) 0.17 10*3/uL (0.04-0.35); Eosinophils % (A) 2.6 %; HCT 27.3 % (39.6-50.0); Lymphocytes # (A) 1.83 10*3/uL (0.90-5.00); Lymphocytes % (A) 27.8 %; MCH 31.3 pg (27.0-32.0); MCHC 35.2 g/dL (32.0-37.0); MCV 88.9 fL (80.0-97.0); Monocytes # (A) 0.64 10*3/uL (0.20-1.00); Monocytes % (A) 9.7 %; Neutrophils # (A) 3.88 10*3/uL (1.80-7.70); Neutrophils % (A) 58.8 %; Platelet Count 123 10*3/uL (140-440); RBC 3.07 10*6/uL (4.40-5.60); RDW 17.5 % (11.5-14.5); WBC 6.59 10*3/uL (4.50-10.00)
[2025-05-29 03:43] LABS: ALT 67 U/L (4-49); AST 166 U/L (17-59); African American GFR (CKD) 60 (>60 ml/min/1.73 sqM); Albumin 3.6 g/dL (3.5-5.0); Alkaline Phosphatase 80 U/L (38-126); Amylase 58 U/L (30-110); Anion Gap 8 mmol/L; Blood Urea Nitrogen 21 mg/dL (9-20); Calcium 10.0 mg/dL (8.4-10.2); Carbon Dioxide 26 mmol/L (22-30); Chloride 100 mmol/L (98-107); Glucose 84 mg/dL (74-99); Lipase 237 U/L (23-300); Non-African American GFR(CKD) 52 (>60 ml/min/1.73 sqM); Potassium 4.3 mmol/L (3.5-5.1); Sodium 134 mmol/L (137-145); Total Protein 6.4 g/dL (6.3-8.2)
[2025-05-29 03:47] LABS: HGB 9.6 g/dL (13.0-17.0)
[2025-05-29] MEDS ORDERED: NITROGLYCERIN SL TABS 0.4 MG TAB SUBLINGUAL PRN (11:41)
--- NOTE | 2025-05-29 11:56 | P.HPIM ---
History of Present Illness 63-year-old pleasant male came in with complaints of dizziness. Patient also complaining of epigastric abdominal pain unable to characterize the pain not related to food. Patient has a mildly elevated lipase of 360 patient does drink alcohol on daily basis about 3 drinks a day never had any withdrawals patient last drink was yesterday. Patient denied any fever chills nausea vomiting. Patient is found to be significantly dehydrated with serum creatinine going up to about 2 and low serum sodium. Patient was started on IV fluids and was admitted. Patient admits to not drinking enough water, patient does drink alcohol which can make him dehydrated and patient is also on hydrochlorothiazide which makes him dehydrated as well. Dizziness significantly improved upon further questioning patient admits to dark stools couple days ago but presently brown stools. Patient hemoglobin did drop from 13-9 from his previous labs REVIEW OF SYSTEMS: All other systems are negative except those mentioned in the HPI PHYSICAL EXAMINATION: GENERAL: The patient is alert and oriented x3, not in any acute distress. Well developed, well nourished. HEENT: Pupils are round and equally reacting to light. EOMI. No scleral icterus. No conjunctival pallor. Normocephalic, atraumatic. No pharyngeal erythema. No thyromegaly. CARDIOVASCULAR: S1 and S2 present. No murmurs, rubs, or gallops. PULMONARY: Chest is clear to auscultation, no wheezing or crackles. ABDOMEN: Soft, nontender, nondistended, normoactive bowel sounds. No palpable organomegaly. MUSCULOSKELETAL: No joint swelling or deformity. EXTREMITIES: No cyanosis, clubbing, or pedal edema. NEUROLOGICAL: Gross neurological examination did not reveal any focal deficits. SKIN: No rashes. Assessment and plan -Dizziness: Secondary to severe dehydration from alcoholism, poor p.o. intake, hydrochlorothiazide patient's hydrochlorothiazide will be discontinued patient w ill be continued on valsartan. Patient was offered to stay in the hospital for IV hydration patient does not want to stay in the hospital. Patient's creatinine did come down to 1.4 we will hydrate him little bit more and will be discharged later today - Acute renal failure prerenal azotemia secondary to above-mentioned reasons - Peptic ulcer disease with GI bleed couple days ago patient's GI bleed clinically appears to have resolved I offered patient to stay in the hospital for monitoring overnight but patient wanted to go home patient will be discharged on Protonix. - Chronic alcoholism: Extensive counseling was provided. Patient is willing to put alcohol - Alcoholic gastritis - Essential hypertension: Medication management and medication changes as mentioned above - Hyponatremia secondary to hydrochlorothiazide and hypovolemia - Coronary artery disease - Sleep apnea - Hyperlipidemia -Nicotine use: Counseling was provided -Mild nonspecific elevation of lipase secondary to alcoholism I do not believe patient had pancreatitis patient will be resumed on diet. Patient will be discharged later today after hydration Past Medical History Past Medical History: Coronary Artery Disease (CAD), Cancer, GI Bleed, Hyperlipidemia, Hypertension, Osteoarthritis (OA), Sleep Apnea/CPAP/BIPAP Additional Past Medical History / Comment(s): alcholism , rectal bleed 09/2014, pancreatitis, Cervical disk disease on the neck fused 3 disks, does not wear cpap- due for sinus surgery. nasal cancer removed, leg pain ? sciatica History of Any Multi-Drug Resistant Organisms: None Reported Past Surgical History: Cholecystectomy, Heart Catheterization With Stent, Hernia Repair Additional Past Surgical History / Comment(s): MAUREEN FUNDLAPLASTY, EGDs and colonoscopies with benign polypectomies, TOOTH EXTRACTIONS, gallbladder out sep 2020, bunion R foot removed Past Anesthesia/Blood Transfusion Reactions: No Reported Reaction Additional Past Anesthesia/Blood Transfusion Reaction / Comment(s): Pt has received blood without reaction. Date of Last Stent Placement:: 04/14/20 Past Psychological History: No Psychological Hx Reported Additional Psychological History / Comment(s): Pt states he lives with shilo. He is independent. He uses no assistive device. He drives. Smoking Status: Current every day smoker Past Alcohol Use History: Occasional Additional Past Alcohol Use History / Comment(s): STATES SMOKES CIGARS OCCASIONALLY starting in 2009. couple drinks daily -vodka, trying to quit Past Drug Use History: None Reported - Past Family History Mother Family Medical History: No Reported History Additional Family Medical History / Comment(s): . Father Family Medical History: Diabetes Mellitus, Hypertension, Myocardial Infarction ([place]) Additional Family Medical History / Comment(s): Father at age 84 yrs. Medications and Allergies Home Medications Medication Instructions Recorded Confirmed Type Aspirin 81 mg PO DAILY #30 chew 04/15/20 05/29/25 Rx Nitroglycerin Sl Tabs [Nitrostat] 0.4 mg SUBLINGUAL Q5M PRN #100 tab 04/15/20 05/29/25 Rx Apixaban [Eliquis] 5 mg PO BID 05/29/25 05/29/25 History Multivitamins, Thera [Multivitamin 1 tab PO DAILY 05/29/25 05/29/25 History (formulary)] Pantoprazole [Protonix] 40 mg PO DAILY #30 tab 05/29/25 Rx Sildenafil Citrate [Viagra] 100 mg PO Q72H PRN 05/29/25 05/29/25 History Valsartan 160 mg PO DAILY #30 tab 05/29/25 Rx Allergies Allergy/AdvReac Type Severity Reaction Status Date / Time ibuprofen Allergy Rash/Hives Verified 05/29/25 09:26 Physical Exam Vitals: Vital Signs Temp Pulse Pulse Resp BP BP Pulse Ox 05/29/25 11:27 97.6 F 54 L 18 126/77 100 05/29/25 11:15 97.8 F 50 L 18 116/68 100 05/29/25 01:22 51 L 18 155/62 97 05/28/25 23:05 60 18 134/84 98 05/28/25 18:03 97.8 F 71 18 96/64 100 Intake and Output 05/28/25 05/29/25 05/29/25 22:59 06:59 14:59 Other: Voiding Method Toilet Urinal Weight 80.739 kg 80.739 kg Results CBC & Chem 7: 05/29/25 02:57 05/29/25 02:57 Labs: Abnormal Lab Results - Last 24 Hours (Table) 05/28/25 05/28/25 05/28/25 Range/Units 18:30 18:30 18:31 RBC 3.24 L (4.40-5.60) 10*6/uL Hgb 11.2 L (13.0-17.0) g/dL Hct 29.2 L (39.6-50.0) % MCH 34.6 H (27.0-32.0) pg MCHC 38.4 H (32.0-37.0) g/dL Plt Count 127 L (140-440) 10*3/uL MPV (9.5-12.2) fL Sodium 136 L (137-145) mmol/L Chloride 97 L (98-107) mmol/L BUN 24 H (9-20) mg/dL Creatinine 2.02 H (0.66-1.25) mg/dL Plasma Lactic Acid Julio Cesar 4.7 H* (0.7-2.0) mmol/L Calcium 10.9 H (8.4-10.2) mg/dL AST 119 H (17-59) U/L ALT 58 H (4-49) U/L Total Protein 8.5 H (6.3-8.2) g/dL Lipase (23-300) U/L 05/28/25 05/28/25 05/29/25 Range/Units 21:04 23:15 02:57 RBC 3.07 L (4.40-5.60) 10*6/uL Hgb 9.6 L D (13.0-17.0) g/dL Hct 27.3 L (39.6-50.0) % MCH (27.0-32.0) pg MCHC (32.0-37.0) g/dL Plt Count 123 L (140-440) 10*3/uL MPV 13.9 H (9.5-12.2) fL Sodium (137-145) mmol/L Chloride (98-107) mmol/L BUN (9-20) mg/dL Creatinine (0.66-1.25) mg/dL Plasma Lactic Acid Julio Cesar 4.2 H* (0.7-2.0) mmol/L Calcium (8.4-10.2) mg/dL AST (17-59) U/L ALT (4-49) U/L Total Protein (6.3-8.2) g/dL Lipase 363 H (23-300) U/L 05/29/25 Range/Units 02:57 RBC (4.40-5.60) 10*6/uL Hgb (13.0-17.0) g/dL Hct (39.6-50.0) % MCH (27.0-32.0) pg MCHC (32.0-37.0) g/dL Plt Count (140-440) 10*3/uL MPV (9.5-12.2) fL Sodium 134 L (137-145) mmol/L Chloride (98-107) mmol/L BUN 21 H (9-20) mg/dL Creatinine 1.41 H (0.66-1.25) mg/dL Plasma Lactic Acid Julio Cesar (0.7-2.0) mmol/L Calcium (8.4-10.2) mg/dL AST 166 H (17-59) U/L ALT 67 H (4-49) U/L Total Protein (6.3-8.2) g/dL Lipase (23-300) U/L
--- NOTE | 2025-05-29 11:56 | P.DS ---
Providers Date of admission: 05/28/25 22:46 Attending physician: Pari Benavidez Primary care physician: Jeffry [facility] [place] Course: 63-year-old pleasant male came in with complaints of dizziness. Patient also complaining of epigastric abdominal pain unable to characterize the pain not related to food. Patient has a mildly elevated lipase of 360 patient does drink alcohol on daily basis about 3 drinks a day never had any withdrawals patient last drink was yesterday. Patient denied any fever chills nausea vomiting. Patient is found to be significantly dehydrated with serum creatinine going up to about 2 and low serum sodium. Patient was started on IV fluids and was admitted. Patient admits to not drinking enough water, patient does drink alcohol which can make him dehydrated and patient is also on hydrochlorothiazide which makes him dehydrated as well. Dizziness significantly improved upon further questioning patient admits to dark stools couple days ago but presently brown stools. Patient hemoglobin did drop from 13-9 from his previous labs REVIEW OF SYSTEMS: All other systems are negative except those mentioned in the HPI PHYSICAL EXAMINATION: GENERAL: The patient is alert and oriented x3, not in any acute distress. Well developed, well nourished. HEENT: Pupils are round and equally reacting to light. EOMI. No scleral icterus. No conjunctival pallor. Normocephalic, atraumatic. No pharyngeal erythema. No thyromegaly. CARDIOVASCULAR: S1 and S2 present. No murmurs, rubs, or gallops. PULMONARY: Chest is clear to auscultation, no wheezing or crackles. ABDOMEN: Soft, nontender, nondistended, normoactive bowel sounds. No palpable organomegaly. MUSCULOSKELETAL: No joint swelling or deformity. EXTREMITIES: No cyanosis, clubbing, or pedal edema. NEUROLOGICAL: Gross neurological examination did not reveal any focal deficits. SKIN: No rashes. Assessment and plan -Dizziness: Secondary to severe dehydration from alcoholism, poor p.o. intake, hydrochlorothiazide patient's hydrochlorothiazide will be discontinued patient will be continued on valsartan. Patient was offered to stay in the hospital for IV hydration patient does not want to stay in the hospital. Patient's creatinine did come down to 1.4 we will hydrate him little bit more and will be discharged later today - Acute renal failure prerenal azotemia secondary to above-mentioned reasons - Peptic ulcer disease with GI bleed couple days ago patient's GI bleed clinically appears to have resolved I offered patient to stay in the hospital for monitoring overnight but patient wanted to go home patient will be discharged on Protonix. - Chronic alcoholism: Extensive counseling was provided. Patient is willing to put alcohol - Alcoholic gastritis - Essential hypertension: Medication management and medication changes as mentioned above - Hyponatremia secondary to hydrochlorothiazide and hypovolemia - Coronary artery disease - Sleep apnea - Hyperlipidemia -Nicotine use: Counseling was provided -Mild nonspecific elevation of lipase secondary to alcoholism I do not believe patient had pancreatitis patient will be resumed on diet. Patient will be discharged later today after hydration Patient Condition at Discharge: Fair Plan - Discharge Summary Discharge Rx Participant: No New Discharge Prescriptions: New Pantoprazole [Protonix] 40 mg PO DAILY #30 tab Valsartan 160 mg PO DAILY #30 tab Continue Aspirin 81 mg PO DAILY #30 chew Nitroglycerin Sl Tabs [Nitrostat] 0.4 mg SUBLINGUAL Q5M PRN #100 tab PRN Reason: Chest Pain Sildenafil Citrate [Viagra] 100 mg PO Q72H PRN PRN Reason: e.d. Apixaban [Eliquis] 5 mg PO BID Multivitamins, Thera [Multivitamin (formulary)] 1 tab PO DAILY Discontinued Valsartan/Hydrochlorothiazide [Diovan Hct 160-12.5 mg Tab] 1 tab PO DAILY Discharge Medication List Aspirin 81 mg PO DAILY #30 chew 04/15/20 [Rx] Nitroglycerin Sl Tabs [Nitrostat] 0.4 mg SUBLINGUAL Q5M PRN #100 tab 04/15/20 [Rx] Apixaban [Eliquis] 5 mg PO BID 05/29/25 [History] Multivitamins, Thera [Multivitamin (formulary)] 1 tab PO DAILY 05/29/25 [History] Pantoprazole [Protonix] 40 mg PO DAILY #30 tab 05/29/25 [Rx] Sildenafil Citrate [Viagra] 100 mg PO Q72H PRN 05/29/25 [History] Valsartan 160 mg PO DAILY #30 tab 05/29/25 [Rx] Follow up Appointment(s)/Referral(s): Jeffry Yang DO [Primary Care Provider] - 3 Days Puja Begum MD [STAFF PHYSICIAN] - 1 Week Discharge Disposition: HOME SELF-CARE
[2025-05-29] MEDS: PANTOPRAZOLE 40 MG/10 ML VIAL IVP SCH (12:29)
[2025-05-29] MEDS: APIXABAN 5 MG TAB PO SCH (12:29)
[2025-05-29 15:01] VITALS: BP 114/71; PULSE 50; TEMP 97.8
[2025-05-30] MEDS ORDERED: MULTIVITAMINS, THERA 1 EACH TAB PO SCH (09:00)
[2025-05-30] MEDS ORDERED: ASPIRIN 81 MG PO SCH (09:00)
== END 2025-05-29 17:43 | disposition home or self-care (01) ==
LOC: EC 17:46 → 4SSUR 22:46
PROVIDERS: ADMIT Hospitalist; ATTEND Hospitalist
DX: E86.0 Dehydration (principal); N17.9 Acute kidney failure, unspecified; E86.1 Hypovolemia; E87.1 Hypo-osmolality and hyponatremia; E87.20 Acidosis, unspecified; T50.2X5A Adverse effect of carbonic-anhydrase inhibitors, benzothiadiazides and other diuretics, initial encounter; K29.20 Alcoholic gastritis without bleeding; K85.90 Acute pancreatitis without necrosis or infection, unspecified; F10.20 Alcohol dependence, uncomplicated; F17.290 Nicotine dependence, other tobacco product, uncomplicated; G47.30 Sleep apnea, unspecified; I10 Essential (primary) hypertension; E78.5 Hyperlipidemia, unspecified; I25.10 Atherosclerotic heart disease of native coronary artery without angina pectoris; Z79.01 Long term (current) use of anticoagulants; Z79.82 Long term (current) use of aspirin; Z79.899 Other long term (current) drug therapy; Z90.49 Acquired absence of other specified parts of digestive tract; Z88.6 Allergy status to analgesic agent
CPT/HCPCS: 96375 ×2; 96361; 96365; 99285; 36415; 93005; 80053 ×2; 82150 ×2; 83605 ×2; 83690 ×2; 84484; 85025 ×2; 85610; 85730; 81003; 87040; 71046; G0378 ×2; J2270; J0696; J2470